=== PATIENT | male | born 1975 | race Caucasian/White ===

== ENCOUNTER 2016-06-13 11:38 | Emergency (ER) | payer OTHER ==
[2016-06-13] MEDS ORDERED: KETOROLAC 60 MG/2 ML VIAL IM STA (12:53)
[2016-06-13] MEDS ORDERED: ORPHENADRINE 30 MG/ML 2 ML VIAL IM STA (12:53)
--- NOTE | 2016-06-13 13:00 | ED ---
General Adult HPI - General Chief complaint: Neck Pain/Injury Stated complaint: Neck pain Time Seen by Provider: 06/13/16 12:40 Source: patient, RN notes reviewed Mode of arrival: ambulatory Limitations: no limitations - History of Present Illness Initial comments: 41-year-old male presents to the emergency department with a chief complaint of right-sided neck and shoulder pain. Patient states his pain originally started about one week ago after he was pain the ceiling in his house. Patient states he then tried to grab the driveway in this pain flared him off. Patient states that he saw his doctor who scheduled him with an appointment to see Dr. Luna but the appointment set for similar days and the patient states he continues to have this pain and discomfort. Patient states it's more around the right shoulder radiates into the upper back shoulder area as well. Patient states that he did not have any fall or injury to the shoulder is just seems to be overuse and overdoing it. Patient denies any nausea or vomiting associated with this. Patient states that he was concerned due to the continued pain and the fact that he just cannot seem to get comfortable so he thought he should be evaluated. Patient states that there is no other symptoms with this. Patient denies any numbness or tingling on the right arm. Patient denies any recent fever, chills, shortness of breath, chest pain, back pain, abdominal pain, nausea vomiting, numbness or tingling, dysuria or hematuria, constipation or diarrhea, headaches or visual changes, or any other current symptoms. - Related Data Home Medications Medication Instructions Recorded Confirmed ALPRAZolam [Xanax] 1 mg PO TID 11/25/15 12/24/15 HYDROcodone/APAP 10-325MG [[place] 1 tab PO Q4HR PRN 11/25/15 12/24/15 10-325] Venlafaxine HCl ER [Effexor XR] 75 mg PO DAILY 12/24/15 12/24/15 Divalproex ER [Depakote ER] 1,000 mg PO DAILY 06/13/16 06/13/16 Divalproex Sodium [Depakote ER] 250 mg PO DAILY 06/13/16 06/13/16 Doxycycline Monohydrate [Monodox] 100 mg PO BID 06/13/16 06/13/16 Flecainide Acetate 50 mg PO Q12HR 06/13/16 06/13/16 Previous Rx's Medication Instructions Recorded Orphenadrine [Norflex] 100 mg PO Q12H #10 tablet.er 06/13/16 Allergies Allergy/AdvReac Type Severity Reaction Status Date / Time sulfamethoxazole Allergy Unknown Rash/Hives Verified 06/13/16 13:38 [From Bactrim] trimethoprim [From Bactrim] Allergy Unknown Rash/Hives Verified 06/13/16 13:38 daptomycin Allergy Itching Verified 06/13/16 13:38 hydromorphone HCl Allergy Itching Verified 06/13/16 13:38 [From Dilaudid] vancomycin Allergy Itching Verified 06/13/16 13:38 ibuprofen [From Motrin] AdvReac Nausea & Verified 06/13/16 13:38 Vomiting Review of Systems ROS Statement: Those systems with pertinent positive or pertinent negative responses have been documented in the HPI. ROS Other: All systems not noted in ROS Statement are negative. Past Medical History Past Medical History: Atrial Fibrillation, Skin Disorder Additional Past Medical History / Comment(s): PACEMAKER @ AGE 24, AND REPLACED APPROX 2010, BACK PAIN, History of Any Multi-Drug Resistant Organisms: MRSA Date of last positivie culture/infection: 05/25/15 MDRO Source:: Left Wrist Past Surgical History: Heart Catheterization, Pacemaker Additional Past Surgical History / Comment(s): ASD REPAIR TO REPAIR HOLE BETWEEN 2 UPPER CHAMBERS AT AGE 5., PACEMAKER INSERTED SINCE AGE 24, D/T BRADYCARDIA, AND REPLACED X1. Past Anesthesia/Blood Transfusion Reactions: No Reported Reaction Type of Cardiac Device: Permanent Pacemaker Device Placement Date:: 2010 BIOTRONIC Past Psychological History: Anxiety, Depression Additional Psychological History / Comment(s): Single lives independently. Does have some input from his parents. He had 2 adult children one in a car accident in February 2015 he was taxing and driving and lost control. His other son is in good health. one pet Dog at home which is a Huskie had for 3 months. Stopped smoking tobacco 10 years ago. No history of her second alcohol or recreational drug use. 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 No experience. No international travel Smoking Status: Former smoker Past Alcohol Use History: None Reported Additional Past Alcohol Use History / Comment(s): started smoking at age 14 1pp , quit 2000. Smoked for 11 years. Past Drug Use History: None Reported Additional Drug Use History / Comment(s): past use of marijuana as teenager, none, now - Past Family History Father Family Medical History: Diabetes Mellitus Mother Family Medical History: Cancer Additional Family Medical History / Comment(s): FEMALE CANCER, CABG General Exam Limitations: no limitations General appearance: alert, in no apparent distress Head exam: Present: atraumatic, normocephalic, normal inspection Eye exam: Present: normal appearance, PERRL, EOMI. Absent: scleral icterus, conjunctival injection, periorbital swelling ENT exam: Present: normal exam, mucous membranes moist Neck exam: Present: tenderness (On the right lateral aspect). Absent: meningismus, full ROM (Patient has limited range of motion with lateral bending to the right and with full flexion of the neck due to pain along the right lateral aspect), lymphadenopathy, thyromegaly Respiratory exam: Present: normal lung sounds bilaterally. Absent: respiratory distress, wheezes, rales, rhonchi, stridor Cardiovascular Exam: Present: regular rate, normal rhythm, normal heart sounds. Absent: systolic murmur, diastolic murmur, rubs, gallop, clicks Extremities exam: Present: normal inspection, full ROM, tenderness (Along the right upper trapezius muscle into the right shoulder), normal capillary refill. Absent: joint swelling, calf tenderness Back exam: Present: normal inspection Neurological exam: Present: alert, oriented X3, CN II-XII intact. Absent: motor sensory deficit Psychiatric exam: Present: normal affect, normal mood Skin exam: Present: warm, dry, intact, normal color. Absent: rash Course Vital Signs 06/13/16 06/13/16 11:45 13:34 Temperature 97 F L 97.7 F Pulse Rate 63 87 Respiratory 16 20 Rate Blood Pressure 127/76 119/66 O2 Sat by Pulse 99 100 Oximetry Medical Decision Making - Medical Decision Making 41-year-old male presents emergency. Patient will follow-up with Dr. Garcia for a right shoulder possible rotator cuff injury per the patient's history from the family care doctor. Patient is a 2-year-old with a ventricular. They lifted special testing of the right shoulder. At this time x-rays reviewed the chest and acute process. Discussed patient also gets cervical strain right shoulder strain. We discussed continuing his follow-up appointment. We discussed we will start her muscle relaxers. Discussed return parameters. We discussed all the patient's questions. He stated he understood the plan. At this time he will be discharged home. - Radiology Data Radiology results: report reviewed, image reviewed Disposition Clinical Impression: Right shoulder strain, Strain of cervical portion of right trapezius muscle Disposition: HOME SELF-CARE Condition: Stable Instructions: Rotator Cuff Injury (ED), Cervical Strain (ED) Additional Instructions: Please use medication as discussed. Please follow up with family doctor if symptoms have not improved over the next two days. Please return to the emergency room if your symptoms increase or worsen or for any other concerns. Prescriptions: Orphenadrine [Norflex] 100 mg PO Q12H #10 tablet.er Referrals: Byron Chua MD [Primary Care Provider] - 1-2 days Time of Disposition: 13:51
--- NOTE | 2016-06-13 13:48 | XR ---
EXAMINATION TYPE: XR cervical spine comp DATE OF EXAM: 06/13/2016 1:36 PM COMPARISON: NONE HISTORY: 41-year-old male with right shoulder and neck pain for 2 weeks TECHNIQUE: 7 views FINDINGS: Normal odontoid view. Straightening of the normal cervical lordosis is noted. Alignment is maintained . No predental space widening or prevertebral soft tissue swelling. Mild endplate spondylosis and disc interspace narrowing at mid to lower cervical spine with corresponding facet and uncovertebral joint arthropathy. On the right, the changes result in at least mild narrowing of the C6-C7 and C7-T1 neuroforamina. No significant bony neural foraminal narrowing on the left. IMPRESSION: Mild spondylotic change mid to lower cervical spine. This appears to cause at least mild narrowing of the right C6-C7 and C7-T1 neuroforamina. Straightening of the normal cervical lordosis could be positional or due to muscle spasm.
--- NOTE | 2016-06-13 13:49 | XR ---
EXAMINATION TYPE: XR shoulder complete RT DATE OF EXAM: 06/13/2016 1:36 PM COMPARISON: NONE HISTORY: 41-year-old male with pain TECHNIQUE: 3 views FINDINGS: There appears to be slight offset at the AC joint but no abnormal widening. Subacromial space is pres erved. No tendinous or bursal calcifications. Mild inferior spurring at the glenoid. No acute fractur e or dislocation. IMPRESSION: Slight offset at the AC joint could reflect an AC joint sprain if there is appropriate history of tra dany and pinpoint tenderness in this location. Otherwise, findings may be projectional. Mild degenerat varghese spurring at the glenohumeral joint.
[2016-06-13 14:06] VITALS: BP 126/76; PULSE 68; RESP 18; TEMP 98.1
== END 2016-06-13 14:06 | disposition home or self-care (01) ==
LOC: EC 11:38
DX: S16.1XXA Strain of muscle, fascia and tendon at neck level, initial encounter (principal); S46.011A Strain of muscle(s) and tendon(s) of the rotator cuff of right shoulder, initial encounter; I48.91 Unspecified atrial fibrillation; F32.9 Major depressive disorder, single episode, unspecified; F41.9 Anxiety disorder, unspecified; Z87.891 Personal history of nicotine dependence; Z79.899 Other long term (current) drug therapy; Z88.1 Allergy status to other antibiotic agents; Z88.5 Allergy status to narcotic agent; Z88.6 Allergy status to analgesic agent; Z88.8 Allergy status to other drugs, medicaments and biological substances; X58.XXXA Exposure to other specified factors, initial encounter
CPT/HCPCS: 72050; 73030; 99283; 96372 ×2; J2360; J1885

== ENCOUNTER → 2016-06-21 | Outpatient (CLI) | payer OTHER ==
--- NOTE | 2016-06-21 21:14 | CT ---
"EXAMINATION TYPE: CT cervical spine wo con DATE OF EXAM: 06/21/2016 6:52 PM COMPARISON: 02/13/2014 HISTORY: Neck and right arm pain for [address] DLP: 499.9 mGycm Automated exposure control for dose reduction was used. TECHNIQUE: CT scan of the cervical spine is obtained without contrast, axial images are obtained, sa gittal and coronal reformatted images are also reviewed. FINDINGS: Evaluation the spinal cord is limited due to noncontrast technique and artifact. At C2-3 there is no evidence of canal stenosis. Neural foramina are patent. Very minimal uncovertebra l joint hypertrophy. At C3-C4 there is very mild uncovertebral joint hypertrophy. Neural foramina are patent. No Canal enedina nosis. Central disc bulging suggested. At C4-C5 there is posterior spondylosis and disc osteophyte complex. Uncovertebral joint hypertrophy noted on the right. Mild right-sided foraminal encroachment. Borderline canal stenosis. This would be more adequately assessed with MRI. At C5-C6 there is posterior cervical spondylosis and moderate uncovertebral joint hypertrophy bilater ally greater on the right. Moderate bilateral foraminal encroachment is seen. Central disc protrusion capped by spur noted with findings suggestive of canal stenosis. At C6-C7 findings are highly suspicious for disc herniation paracentrally to the right with severe ri ght-sided foraminal encroachment. Uncovertebral joint hypertrophy contributes greater on the right. T here likely is a degree of Canal stenosis. Compression of the spinal cord cannot be excluded by CAT s can. At C7-T1 no obvious disc herniation or canal stenosis. Neural foramina appear patent. No abnormality within the paraspinal soft tissues. Leads are seen within the vasculature on the left lung apex. Mild emphysematous changes noted. IMPRESSION: 1. Findings are highly suspicious for a large right paracentral disc herniation with severe right-karen ed foraminal encroachment at C6-C7. Degree of cord compression cannot be excluded by CAT scan and MRI is recommended. 2. Disc protrusion and uncovertebral joint hypertrophy with cervical spondylosis C5-C6 and moderate b ilateral foraminal encroachment and findings suggestive of moderate canal stenosis. 3. Borderline canal stenosis C4-C5. Posterior spondylosis results in mild impression of the thecal sa c. A Yellow message has been communicated to Reese Jimenez MD via the [employer] | Critical Result s [employer] on 06/21/2016 9:10 PM, Message ID [id number]."
== END | disposition home or self-care (01) ==
LOC: RADCTMAIN 18:27
PROVIDERS: ATTEND Orthopaedic Surgery Sports Medicine
DX: M48.02 Spinal stenosis, cervical region (principal); M50.222 Other cervical disc displacement at C5-C6 level; M47.812 Spondylosis without myelopathy or radiculopathy, cervical region; M46.82 Other specified inflammatory spondylopathies, cervical region
CPT/HCPCS: 72125

== ENCOUNTER → 2016-08-10 | Outpatient (CLI) | payer OTHER ==
[2016-08-10 10:23] LABS: Appearance,Urine Clear (Clear); Bilirubin,Urine Negative (Negative); Glucose,Urine (UA) Negative (Negative); Ketones,Urine Negative (Negative); Leukocyte Esterase,Urine Negative (Negative); Nitrite,Urine Negative (Negative); PH, Urine 6.5 (5.0-8.0); Protein,Urine Negative (Negative); Specific Gravity,Urine 1.016 (1.001-1.035); UA Billing (MACRO vs. MICRO) CHEM; Urobilinogen,Urine <2.0 mg/dL (<2.0)
[2016-08-10 10:41] LABS: Basophils % (A) 0 %; CH 31.4; CHCM 34.8; Eosinophils # (A) 0.1 k/uL (0-0.7); Eosinophils % (A) 2 %; HCT 40.6 % (39.0-53.0); HDW 2.68; HGB 13.6 gm/dL (13.0-17.5); Luc # (Auto) 0.09; Luc % (Auto) 2; Lymphocytes # (A) 1.3 k/uL (1.0-4.8); Lymphocytes % (A) 28 %; MCH 30.3 pg (25.0-35.0); MCHC 33.5 g/dL (31.0-37.0); MCV 90.6 fL (80.0-100.0); Monocytes # (A) 0.3 k/uL (0-1.0); Monocytes % (A) 7 %; Neutrophils # (A) 2.8 k/uL (1.3-7.7); Neutrophils % (A) 61 %; RBC 4.48 m/uL (4.30-5.90); RDW 12.6 % (11.5-15.5); WBC 4.6 k/uL (3.8-10.6); WBC (Perox) 4.52
[2016-08-10 10:47] LABS: INR 1.1 (<1.1); Partial Thromboplastin Time 23.6 sec (22.0-30.0); Prothrombin Time 10.9 sec (9.0-12.0)
[2016-08-10 10:50] LABS: Anion Gap 10 mmol/L; Blood Urea Nitrogen 13 mg/dL (9-20); Calcium 10.2 mg/dL (8.4-10.2); Carbon Dioxide 26 mmol/L (22-30); Chloride 108 mmol/L (98-107); Glucose 93 mg/dL (74-99); Non-African American GFR(MDRD) >60 (>60 ml/min/1.73 sqM); Potassium 4.9 mmol/L (3.5-5.1); Sodium 144 mmol/L (137-145)
== END | disposition home or self-care (01) ==
LOC: LABPAT 09:44
PROVIDERS: ATTEND Orthopaedic Surgery Orthopaedic Surgery of the Spine
DX: Z01.812 Encounter for preprocedural laboratory examination (principal); M50.222 Other cervical disc displacement at C5-C6 level
CPT/HCPCS: 80048; 81003; 85025; 85610; 85730

== ENCOUNTER 2016-08-16 09:33 | Inpatient (IN) | payer OTHER ==
[2016-08-14 11:49] VITALS: BMI 22.4
[~2016-08-16 09:33] MED LIST: BACITRACIN 50,000 UNIT, POLYMYXIN B 500,000 UNIT in SODIUM CHLORIDE 0.9% IRRIGATIO 1,00... IRRIGATION ONE; DEXAMETHASONE SOD PHOSPHATE 10 MG/ML 1 ML VIAL IV ONE; MIDAZOLAM 2 MG/2 ML VIAL IV PRN; ONDANSETRON 4 MG/2 ML VIAL IVP ONE; SCOPOLAMINE 1.5MG/72HR PATCH TRANSDERM ONE; ceFAZolin 2 GM in SODIUM CHLORIDE 0.9% 100 ML IVPB ONE; fentaNYL (PF) 50 MCG/ML 2 ML AMP IV PRN
[2016-08-16] MEDS: LACTATED RINGERS 1,000 ML IV SCH (10:45)
[2016-08-16] MEDS ORDERED: LIDOCAINE 1% 20 ML VIAL (10MG/ML) FOR IV START INTRADERMA ONE (10:45)
[2016-08-16] MEDS ORDERED: VANCOMYCIN 1,000 MG in SODIUM CHLORIDE 0.9% 250 ML IVPB STA (11:49)
[2016-08-16] MEDS ORDERED: diphenhydrAMINE 50 MG/ML 1 ML VIAL IVP ONE (12:08)
[2016-08-16] MEDS ORDERED: DEXAMETHASONE SOD PHOS (MDV) 100 MG/10 ML VIAL ONE (12:23)
[2016-08-16] MEDS ORDERED: PROPOFOL 10 MG/ML 20 ML VIAL IV ONE (12:23)
[2016-08-16] MEDS ORDERED: MIDAZOLAM 2 MG/2 ML VIAL ONE (12:23)
[2016-08-16] MEDS ORDERED: fentaNYL (PF) 50 MCG/ML 2 ML AMP ONE (12:23)
[2016-08-16] MEDS ORDERED: LIDOCAINE 1% INJ 10MG/ML (20 ML MDV) ONE (12:23)
[2016-08-16] MEDS ORDERED: SUCCINYLCHOLINE CHLORIDE 100 MG/5 ML SYR IV ONE (12:23)
[2016-08-16] MEDS ORDERED: diphenhydrAMINE 50 MG/ML 1 ML VIAL ONE (12:23)
[2016-08-16] MEDS ORDERED: SODIUM CHLORIDE 0.9% 100 ML with CLINDAMYCIN 900 MG IV ONE ×2 (12:39)
[2016-08-16] MEDS ORDERED: THROMBIN (BOVINE) 5,000 UNIT VIAL TOPICAL ONE (12:56)
[2016-08-16] MEDS ORDERED: GELATIN SPONGE,ABSORB (LARGE) 1 EACH SPONGE TOPICAL ONE (12:56)
[2016-08-16] MEDS ORDERED: LIDOCAINE 0.5%-EPI 1:200,000 50 ML VIAL SQ ONE (12:56)
--- NOTE | 2016-08-16 13:30 | XR ---
EXAMINATION TYPE: XR cervical spine 1V DATE OF EXAM: 08/16/2016 1:23 PM COMPARISON: NONE HISTORY: Intraoperative localization TECHNIQUE: Crosstable lateral cervical spine FINDINGS: Localization device anterior C6-7 interspace.
[2016-08-16] MEDS ORDERED: LACTATED RINGERS 1,000 ML IV ONE (14:01)
--- NOTE | 2016-08-16 14:21 | XR ---
EXAMINATION TYPE: XR cervical spine 1V DATE OF EXAM: 08/16/2016 2:08 PM COMPARISON: NONE HISTORY: Hardware placement TECHNIQUE: Crosstable lateral cervical spine FINDINGS: Changes of ACDF at C5-6 and C6-7. Intervertebral spacers are in place. Alignment is anatomi c. IMPRESSION: Postsurgical changes as noted.
[2016-08-16] MEDS ORDERED: BENZOCAINE/MENTHOL LOZENG 1 EACH LOZENGE MUCOUS MEM PRN (14:25)
[2016-08-16] MEDS ORDERED: ONDANSETRON 4 MG/2 ML VIAL IVP PRN (14:25)
[2016-08-16] MEDS ORDERED: MAG HYDROX/AL HYDROX/SIMETH 30 ML CUP PO PRN (14:25)
[2016-08-16] MEDS ORDERED: DIAZEPAM 5 MG TAB PO PRN (14:25)
[2016-08-16] MEDS ORDERED: SENNOSIDES-DOCUSATE SODIUM 1 EACH TAB PO PRN (14:25)
--- NOTE | 2016-08-16 14:34 | P.OP ---
Date of Procedure: 08/16/16 Preoperative Diagnosis: Herniated nucleus pulposis C5 6 C6 7, cervical stenosis C5 6 C6 7, upper extremity radiculopathy with Weakness Postoperative Diagnosis: Same Anesthesia: GETA Pathology: none sent Condition: stable Disposition: PACU Description of Procedure: BRIEF OPERATIVE NOTE Preoperative Diagnosis: Herniated nucleus pulposis C5 6 C6 7, cervical stenosis C5 6 C6 7, right upper extremity radiculopathy with weakness Postoperative Diagnosis: Same Procedure: Anterior cervical decompression with discectomy and fusion C5 6 C6 7 Placement of interbody graft C5 6 C6 7 Application of anterior cervical plate C5 C7 Surgeon: Dr. Horowitz Dietitian Research: Roldan CHATTERJEE who is present throughout the entire the case persistence during positioning, dissection, exposure, visualization, and all crucial elements of the case as well as closure. Anesthesia: General anesthesia Estimated blood loss: Approximately 100 mL Complications: None apparent Components implanted: K2M [place] anterior cervical plate system with screws and vikos interbody allograft bone graft Disposition: To recovery room in good stable condition. OPERATIVE INDICATIONS The patient has had long-standing issues in their neck and upper extremities. He is having severe symptoms which were becoming incapacitating for him. He was having severe right upper extremity and neck pain with radiculopathy which correlated well with his imaging findings. The patient has history of a pacemaker and had computed tomography scan which showed significant osteophytes and discoloration C5 6 C6 7 with stenosis at those levels which correlated well with his symptoms. The patient has been through conservative treatment. He is not having any ongoing benefit despite aggressive conservative treatment. We discussed various treatment options including surgery, and the patient wishes to proceed with surgery We discussed the risk, patient's alternatives and benefits of surgery including but not limited to, risk of bleeding risk of infection, risk of need for further surgery, risk of decreased, loss of motion, muscle function, malunion nonunion, hardware failure, nerve damage, paralysis, heart attack, and . OPERATIVE SUMMARY After discussing all the risks, patient alternatives and benefits at length, the patient elected to proceed with surgical intervention, signed informed consent, and presented for their procedure. The patient was seen and examined in the preoperative holding area and the surgical site was marked. The patient was given antibiotics and brought to the operating room. The patient stated that he normally takes vancomycin before his surgeries and we given prophylactic medications and started him on vancomycin however he did show evidence of ALLERGIC reaction around the IV site in the back myself was stopped immediately. We changed him over to clindamycin for prophylactic antibiotics and his ALLERGIC symptoms were resolving with medications. The patient was positioned on the operating room table in a supine position being careful to pad any bony prominences and pressure points. The patient was sedated and intubated by anesthesia in standard fashion. Once the airway and C- spine were stabilized the patient's arms were padded and tucked at her side, with her shoulders gently taped. The head was placed in a donut pad with the neck in good neutral alignment and position. We were careful to maintain the patient's cervical spine and good neutral alignment and position throughout. The patient was prepped and draped in a normal standard fashion. An appropriate timeout and keystone protocol performed. We were able to proceed with the surgery. The local wound area was infiltrated with local anesthetic. An incision was made transversely approximately 2-1/2 cm over the appropriate levels at C5 6. Dissection was taken down subcutaneously to the level of the platysma which was split in line with its fibers. Dissection was taken with a carotid approach, with the trachea and esophagus medial and the carotid sheath laterally. We dissected down to the anterior surface of the vertebral bodies at C5 6 and 7. Intraoperative x-ray was taken which showed a marker at the appropriate level at C6 7. With the appropriate level positively confirmed, we were able to proceed with discectomy at the appropriate levels. All of the operative levels were exposed appropriately. The patient had all their twitches back, and there was no evidence of recurrent laryngeal issue. The wound was copiously irrigated and suctioned dry as had been done periodically throughout the case. At the appropriate level/levels, first at C5 6 and then at C6 7, I established an annulotomy with an 11 blade scalpel. A discectomy was performed with a combination of pituitary rongeurs, curettes, a high-speed bur, and Kerrison rongeurs. The posterior longitudinal ligament was taken down as were any posterior osteophytes. Note was made of significant posterior osteophytes and protrusion of the disc with herniation causing significant stenosis. I was able to take this down and remove the disc and the posterior osteophytes. This gave good central and bilateral foraminal decompression. There is no evidence of any dural tear or leak. The endplates were prepared with a high-speed bur. With the endplates in good parallel position, I was able to size for the appropriate size interbody graft. The wound was irrigated and suctioned dry the graft was prepared and malleted into position. It had good alignment and position with the anterior surface flush with the anterior surface of the vertebral bodies. This was done similarly the appropriate levels first at C5 6 and then at C6 7. With the grafts intact, I was able to measure and contour and appropriate sized plate. The plate was positioned at the midline over the appropriate levels of C5 6 and 7. Screw holes were established with a hand drill and drill guide. Screws were placed in good alignment and position with excellent bony purchase. They were seated under the locking device. The construct was checked and found to be stable. Intraoperative x-ray was taken which showed good alignment and position of the implants at the appropriate levels. There was no evidence of any dural tear or leak. Good hemostasis was maintained. The wound was copiously irrigated and suctioned dry as had been done periodically throughout the case. The platysma was closed with absorbable suture. The subcutaneous tissue was closed. The subcuticular tissue was closed with absorbable suture. The wound was cleaned and dried and dressed appropriately. A soft cervical collar was placed appropriately. The patient was woken up by anesthesia, extubated, transferred back gently to their hospital bed and brought to the recovery room in good stable condition. The patient will be admitted to the hospital for appropriate postoperative care , medical management and monitoring. We will continue to follow them closely about the postoperative course.
[2016-08-16 16:07] LABS: Appearance,Urine Clear (Clear); Bilirubin,Urine Negative (Negative); Glucose,Urine (UA) Negative (Negative); Ketones,Urine Negative (Negative); Leukocyte Esterase,Urine Large (Negative); Nitrite,Urine Negative (Negative); Particle Count 817; Protein,Urine Negative (Negative); Specific Gravity,Urine 1.012 (1.001-1.035); UA Billing (MACRO vs. MICRO) MICRO; Urobilinogen,Urine <2.0 mg/dL (<2.0); WBC,Urine 41 /hpf (0-5)
[2016-08-16] MEDS: HYDROcodone/APAP 10-325MG 1 EACH TAB PO PRN ×3 (16:11→22:28)
[2016-08-16] MEDS: ALPRAZolam 0.5 MG TAB PO SCH ×2 (16:12→22:29)
--- NOTE | 2016-08-16 16:42 | P.PN ---
Progress Note - Text Epidural floor and with patient has bedside over the past hour and a half. He has settled down to some degree and he is apologetic about his demeanor and outbursts. He was quite uncooperative and was thrashing his head around to prove that he could apparently. He says it still kirk but has subsided to some degree. His urinalysis is come back does not show any evidence of any blood. There is some evidence of lytic Estrace and white blood cells and he may have a urinary tract infection and irritation his urethra. We have ordered lidocaine for his urethra to place as the surgery twice a day to for comfort and I have also ordered antibiotics of Levaquin to be taken daily to try to treat possible UTI. He has settled down some degree and is being cooperative currently. We will try to check labs to make sure his electrolytes are in order. We will continue to watch him overnight to monitor his progress. I discussed these issues with him and with his family his mother and father apparently are at bedside tonight discussed his issues with them. They they tell me that he has a number of anger management issues and sees people for anger management. A tell is that he does have significant behavioral issues and has difficulty coping which makes sense in light of the current issues. We will continue to monitor him closely. We have been discussing these issues with him at length with us and with the staff and he seems to be understanding currently.
[2016-08-16] MEDS: LIDOCAINE URO-JET JELLY 2% 5 ML KIT URETHRAL SCH ×2 (17:06→20:52)
[2016-08-16] MEDS: CLINDAMYCIN 900 MG in DEXTROSE 5% IN WATER 50 ML IVPB SCH ×4 (17:14→23:30)
[2016-08-16 17:19] LABS: Basophils % (A) 0 %; CH 31.3; CHCM 34.2; Eosinophils # (A) 0.1 k/uL (0-0.7); Eosinophils % (A) 1 %; HCT 40.3 % (39.0-53.0); HDW 2.49; HGB 13.3 gm/dL (13.0-17.5); Luc # (Auto) 0.02; Luc % (Auto) 0; Lymphocytes # (A) 0.7 k/uL (1.0-4.8); Lymphocytes % (A) 8 %; MCH 30.3 pg (25.0-35.0); MCHC 32.9 g/dL (31.0-37.0); MCV 92.1 fL (80.0-100.0); Mean Platelet Volume 6.8; Monocytes # (A) 0.1 k/uL (0-1.0); Monocytes % (A) 1 %; Neutrophils # (A) 7.6 k/uL (1.3-7.7); Neutrophils % (A) 90 %; RBC 4.38 m/uL (4.30-5.90); RDW 12.7 % (11.5-15.5); WBC 8.5 k/uL (3.8-10.6); WBC (Perox) 8.75
[2016-08-16 17:27] LABS: Anion Gap 8 mmol/L; Blood Urea Nitrogen 16 mg/dL (9-20); Calcium 9.3 mg/dL (8.4-10.2); Carbon Dioxide 24 mmol/L (22-30); Chloride 107 mmol/L (98-107); Glucose 127 mg/dL (74-99); Non-African American GFR(MDRD) >60 (>60 ml/min/1.73 sqM); Potassium 4.2 mmol/L (3.5-5.1); Sodium 139 mmol/L (137-145)
[2016-08-16] MEDS ORDERED: LEVOFLOXACIN 500 MG TAB PO SCH (18:00)
[2016-08-16] MEDS: SODIUM CHLORIDE 0.9% 1,000 ML IV SCH (20:12)
[2016-08-16] MEDS ORDERED: diphenhydrAMINE 50 MG/ML 1 ML VIAL IVP PRN (20:27)
[2016-08-16] MEDS: MORPHINE SULFATE 4 MG/ML SYRINGE IVP PRN (20:48)
[2016-08-16] MEDS: FLECAINIDE 50 MG TAB PO SCH (20:54)
[2016-08-16] MEDS: DIVALPROEX 250 MG TABLET.DR PO SCH (20:55)
[2016-08-16] MEDS: DOXYCYCLINE 50 MG CAP PO SCH (20:56)
[2016-08-17] MEDS: MORPHINE SULFATE 4 MG/ML SYRINGE IVP PRN ×3 (00:43→08:09)
[2016-08-17] MEDS: HYDROcodone/APAP 10-325MG 1 EACH TAB PO PRN ×2 (01:50→06:24)
[2016-08-17 02:03] VITALS: RESP 16
[2016-08-17] MEDS: LACTATED RINGERS 1,000 ML IV SCH (04:45)
[2016-08-17] MEDS: SODIUM CHLORIDE 0.9% 1,000 ML IV SCH (06:24)
[2016-08-17 07:40] VITALS: BP 128/71; PULSE 75; TEMP 97
--- NOTE | 2016-08-17 07:46 | P.DS ---
Providers Date of admission: 08/16/16 09:33 Attending physician: Daly Horowitz Primary care physician: Stated None Hospital Course: The patient presented on the day of admission as per his operative note. He underwent anterior cervical discectomy and fusion for his severe stenosis with disc herniation and upper extremity radiculopathy at C5 6 C6 7. He had a number of issues postoperatively with pain apparently from his catheter and also some neck pain. It is difficult to determine how well he is able to handle pain in general as he has significant anxiety and troubles with pain management chronically. His urination was appropriate he was able to void freely and he seems to be adequately moving his neck. He was thrashing his neck to some degree yesterday postoperatively despite our instructions not to. He was being quite defiant yesterday when he was upset. This morning he is significant more calm. he is cooperative. He says his neck is sore. He was able to eat some food yesterday he is voiding freely. He feels like his arms are doing somewhat better. Physical Exam The incision site is clean dry and intact. There is no erythema no drainage. There is no purulence no evidence of infection. His neck is soft and supple. There is no cigarette swelling. There is no significant drainage on the bandage. Abdomen soft and nontender. Chest has good excursion with deep inspiration and expiration. The patient has active and passive range of motion intact at the upper and lower extremities. There is no acute change in neurologic status. Able to move his upper extremities well. He has good strength in his hands bilaterally. His no clonus and no upper motor neuron signs. Hospital Course Postoperative day #1 status post anterior cervical discectomy and fusion for C5 6 C6 7 for his disc herniation and severe stenosis with right upper extremity radiculopathy and weakness. The patient has been making progress postoperatively despite his initial difficulties when he arrived to the floor. His pain at his urethra is improving but he still has some burning. I do not think that his Jackson catheter caused any sort of infection but we are treating him for urinary tract issues with prophylactic antibiotics. He should continue his Levaquin orally for the next 5 days. In terms of his neck, he has some soreness at the base of his neck which is common place after these types of procedures and I think this will improve as he continues to heal They have completed the prophylactic antibiotics without any signs or symptoms of infection. The patient has been able to advance their diet, and is tolerating diet adequately. The pain was initially controlled with IV medications and is now controlled appropriately with oral medications. The patient has been able to increase their mobilization. The patient has progressed appropriately. I think they are in adequate stable condition for discharge today. They will be sent home with appropriate prescriptions. I answered their questions to the best of my ability in a language that they can understand and they are agreeable with the plan. the patient has some anger management issues and anxiety issues which are difficult to predict. He seems like he will be able to manage his symptoms and continue to follow instructions appropriately postoperatively They will follow up as directed In approximately 2 weeks or sooner if he is having any problems. Patient Condition at Discharge: Fair Plan - Discharge Summary New Discharge Prescriptions: Hydrocodone/Acetaminophen [[place] 10-325] 1 tab PO Q4H PRN #90 tab PRN Reason: Pain Levofloxacin [Levaquin] 500 mg PO DAILY #5 tab Discharge Medication List ALPRAZolam [Xanax] 1 mg PO QID 11/25/15 [History] HYDROcodone/APAP 10-325MG [[place] 10-325] 1 tab PO Q4HR PRN 11/25/15 [History] Divalproex Sodium [Depakote ER] 250 mg PO BID 06/13/16 [History] Doxycycline Monohydrate [Monodox] 100 mg PO BID 06/13/16 [History] Flecainide Acetate 50 mg PO Q12HR 06/13/16 [History] Divalproex ER [Depakote ER] 500 mg PO BID 08/16/16 [History] Levofloxacin [Levaquin] 500 mg PO DAILY #5 tab 08/16/16 [Rx] Hydrocodone/Acetaminophen [[place] 10-325] 1 tab PO Q4H PRN #90 tab 08/17/16 [Rx] Follow up Appointment(s)/Referral(s): Daly Horowitz DO [Doctor of Osteopathic Medicine] - 2 Weeks (With Roldan Pope at Dr. Horowitz's office) Activity/Diet/Wound Care/Special Instructions: Avoid heavy or rigorous activity. May ambulate to tolerance. No overhead work. No lifting greater than 15 pounds. No smoking. No repetitive bending twisting or lifting. Keep dressing intact. May shower with waterproof dressing intact. On Sunday May remove dressing and then may shower with area uncovered, but leave Steri- Strips intact and allow them to fray off on their own. Discharge Disposition: HOME SELF-CARE
[2016-08-17] MEDS: FLECAINIDE 50 MG TAB PO SCH (08:08)
[2016-08-17] MEDS: DIVALPROEX 250 MG TABLET.DR PO SCH (08:08)
[2016-08-17] MEDS: ALPRAZolam 0.5 MG TAB PO SCH (08:08)
[2016-08-17] MEDS: DOXYCYCLINE 50 MG CAP PO SCH (08:08)
[2016-08-17] MEDS: LIDOCAINE URO-JET JELLY 2% 5 ML KIT URETHRAL SCH (08:09)
[2016-08-17] MEDS ORDERED: DIVALPROEX 500 MG TABLET.DR PO SCH (09:00)
[2016-08-17] MEDS ORDERED: DIVALPROEX ER 250 MG TAB.ER.24H PO SCH (09:00)
== END 2016-08-17 10:25 | disposition home or self-care (01) | DRG 473 ==
LOC: 2ORMAIN 09:33 → 3SUR 14:20
PROVIDERS: ADMIT Orthopaedic Surgery Orthopaedic Surgery of the Spine; ATTEND Orthopaedic Surgery Orthopaedic Surgery of the Spine
PROC: 0RB30ZZ Excision of Cervical Vertebral Disc, Open Approach (ICD-10-PCS; 2016-08-16)
PROC: 0RG20K0 Fusion of 2 or more Cervical Vertebral Joints with Nonautologous Tissue Substitute, Anterior Approach, Anterior Column, Open Approach (ICD-10-PCS; principal; 2016-08-16 11:25)
DX: M50.122 Cervical disc disorder at C5-C6 level with radiculopathy (principal); I49.5 Sick sinus syndrome; M48.02 Spinal stenosis, cervical region; M25.78 Osteophyte, vertebrae; M50.223 Other cervical disc displacement at C6-C7 level; M50.222 Other cervical disc displacement at C5-C6 level; R53.1 Weakness; I08.3 Combined rheumatic disorders of mitral, aortic and tricuspid valves; F41.9 Anxiety disorder, unspecified; F91.9 Conduct disorder, unspecified; F31.9 Bipolar disorder, unspecified; G89.18 Other acute postprocedural pain; R07.89 Other chest pain; M54.9 Dorsalgia, unspecified; M25.511 Pain in right shoulder; G89.4 Chronic pain syndrome; R82.99 Other abnormal findings in urine; Z79.01 Long term (current) use of anticoagulants; Z79.891 Long term (current) use of opiate analgesic; Z88.6 Allergy status to analgesic agent; Z88.1 Allergy status to other antibiotic agents; Z88.5 Allergy status to narcotic agent; Z88.2 Allergy status to sulfonamides; Z95.0 Presence of cardiac pacemaker; Z79.899 Other long term (current) drug therapy; Z87.09 Personal history of other diseases of the respiratory system; Z83.3 Family history of diabetes mellitus; Z82.49 Family history of ischemic heart disease and other diseases of the circulatory system; Z81.8 Family history of other mental and behavioral disorders; Z80.3 Family history of malignant neoplasm of breast; Z80.0 Family history of malignant neoplasm of digestive organs; Z87.891 Personal history of nicotine dependence; Z87.74 Personal history of (corrected) congenital malformations of heart and circulatory system; Z86.14 Personal history of Methicillin resistant Staphylococcus aureus infection; Z87.2 Personal history of diseases of the skin and subcutaneous tissue; Z86.79 Personal history of other diseases of the circulatory system
CPT/HCPCS: 72020; 80048; 81001; 85025; 86850; 86900; 86901

== ENCOUNTER 2016-11-23 15:43 | Observation (INO) | payer OTHER ==
[2016-11-23] MEDS ORDERED: HYDROmorphone 1 MG/ML 1 ML SYRINGE IVP STA ×2 (16:58→20:09)
[2016-11-23] MEDS ORDERED: SODIUM CHLORIDE 0.9% 1,000 ML IV ONE (16:58)
[2016-11-23 17:27] LABS: ALT 37 U/L (21-72); AST 22 U/L (17-59); Alkaline Phosphatase 54 U/L (38-126); Anion Gap 12 mmol/L; Blood Urea Nitrogen 11 mg/dL (9-20); Calcium 9.7 mg/dL (8.4-10.2); Carbon Dioxide 22 mmol/L (22-30); Chloride 107 mmol/L (98-107); Glucose 134 mg/dL (74-99); Non-African American GFR(MDRD) >60 (>60 ml/min/1.73 sqM); Potassium 4.1 mmol/L (3.5-5.1); Sodium 141 mmol/L (137-145); Total Bilirubin 0.6 mg/dL (0.2-1.3); Total Protein 6.7 g/dL (6.3-8.2)
[2016-11-23 17:40] LABS: Basophils % (A) 0 %; CH 30.1; CHCM 34.5; Eosinophils # (A) 0.1 k/uL (0-0.7); Eosinophils % (A) 2 %; HCT 43.5 % (39.0-53.0); HDW 2.56; Luc # (Auto) 0.06; Luc % (Auto) 1; Lymphocytes # (A) 1.3 k/uL (1.0-4.8); Lymphocytes % (A) 21 %; MCH 30.3 pg (25.0-35.0); MCHC 34.6 g/dL (31.0-37.0); MCV 87.6 fL (80.0-100.0); Mean Platelet Volume 7.3; Monocytes # (A) 0.3 k/uL (0-1.0); Monocytes % (A) 5 %; Neutrophils # (A) 4.4 k/uL (1.3-7.7); Neutrophils % (A) 70 %; RBC 4.96 m/uL (4.30-5.90); RDW 12.8 % (11.5-15.5); WBC 6.2 k/uL (3.8-10.6); WBC (Perox) 6.45
--- NOTE | 2016-11-23 18:31 | ED ---
Abdominal Pain HPI - General Chief Complaint: Abdominal Pain Stated Complaint: abdominal pain/chest pain-sent by Source: patient Mode of arrival: ambulatory Limitations: no limitations - History of Present Illness Initial Comments: 41 yo male With past medical history of atrial fibrillation, pacemaker, cardiac ablation, heart catheterization, and ASD repair presented for evaluation of abdominal pain. He states is located in the epigastric and right upper quadrant. Symptoms have been ongoing for the last 4 days and he describes it as pressure without any radiation and he rates it an 8 out of 10. There is associated nausea and vomiting and headache. Was seen by his PCP, given zofran, and sent to ED. No history of previously similar symptoms. - Related Data Home Medications Medication Instructions Recorded Confirmed ALPRAZolam [Xanax] 1 mg PO QID 11/25/15 11/23/16 HYDROcodone/APAP 10-325MG [[place] 1 tab PO Q4HR PRN 11/25/15 11/23/16 10-325] Divalproex Sodium [Depakote ER] 750 mg PO BID 06/13/16 11/23/16 Doxycycline Monohydrate [Monodox] 100 mg PO BID 06/13/16 11/23/16 Flecainide Acetate 50 mg PO Q12HR 06/13/16 11/23/16 Albuterol Inhaler [Ventolin Hfa 1 - 2 puff INHALATION RT-Q6H PRN 11/23/16 Inhaler] Ciprofloxacin HCl [Cipro] 500 mg PO Q12HR 11/23/16 11/23/16 Allergies Allergy/AdvReac Type Severity Reaction Status Date / Time sulfamethoxazole Allergy Unknown Rash/Hives/ Verified 11/23/16 16:34 [From Bactrim] Itching trimethoprim [From Bactrim] Allergy Unknown Rash/Hives/ Verified 11/23/16 16:34 Itching daptomycin Allergy Rash/Hives/ Verified 11/23/16 16:34 Itching hydromorphone HCl Allergy Rash/Hives/ Verified 11/23/16 16:34 [From Dilaudid] Itching vancomycin Allergy Rash/Hives/ Verified 11/23/16 16:34 Itching ibuprofen [From Motrin] AdvReac Nausea & Verified 11/23/16 16:34 Vomiting Review of Systems ROS Statement: Those systems with pertinent positive or pertinent negative responses have been documented in the HPI. ROS Other: All systems not noted in ROS Statement are negative. Constitutional: Denies: fever, chills Eyes: Denies: eye pain, eye discharge, vision change ENT: Denies: ear pain, throat pain Respiratory: Denies: cough, dyspnea, wheezes, hemoptysis Cardiovascular: Denies: chest pain, palpitations, dyspnea on exertion Endocrine: Denies: fatigue, polydipsia, polyuria Gastrointestinal: Reports: abdominal pain, nausea, vomiting. Denies: diarrhea, constipation, hematemesis, melena, hematochezia Genitourinary: Denies: urgency, dysuria Musculoskeletal: Denies: back pain, arthralgia Skin: Denies: rash, lesions Neurological: Denies: headache, weakness Psychiatric: Denies: anxiety, depression Hematological/Lymphatic: Denies: easy bleeding, easy bruising Past Medical History Past Medical History: Atrial Fibrillation, Skin Disorder Additional Past Medical History / Comment(s): PACEMAKER @ AGE 24, AND REPLACED APPROX 2010, BACK PAIN, History of Any Multi-Drug Resistant Organisms: MRSA Date of last positivie culture/infection: 05/25/15 MDRO Source:: Left Wrist Past Surgical History: Cardiac Ablation, Heart Catheterization, Pacemaker Additional Past Surgical History / Comment(s): ASD REPAIR TO REPAIR HOLE BETWEEN 2 UPPER CHAMBERS AT AGE 5., PACEMAKER INSERTED SINCE AGE 24, D/T BRADYCARDIA, AND REPLACED X1. Past Anesthesia/Blood Transfusion Reactions: No Reported Reaction Additional Past Anesthesia/Blood Transfusion Reaction / Comment(s): problem with having face covered Type of Cardiac Device: Permanent Pacemaker Device Placement Date:: 2010 BIOTRONIC Past Psychological History: Anxiety, Depression Smoking Status: Former smoker Past Alcohol Use History: None Reported Past Drug Use History: None Reported - Past Family History Father Family Medical History: Diabetes Mellitus Mother Family Medical History: Cancer Additional Family Medical History / Comment(s): FEMALE CANCER, CABG General Exam Limitations: no limitations General appearance: alert, in distress (mild) Head exam: Present: atraumatic, normocephalic, normal inspection Eye exam: Present: normal appearance, PERRL, EOMI. Absent: scleral icterus, conjunctival injection, periorbital swelling ENT exam: Present: normal exam, mucous membranes moist Neck exam: Present: normal inspection. Absent: tenderness, meningismus, lymphadenopathy Respiratory exam: Present: normal lung sounds bilaterally. Absent: respiratory distress, wheezes, rales, rhonchi, stridor Cardiovascular Exam: Present: regular rate, normal rhythm, normal heart sounds. Absent: systolic murmur, diastolic murmur, rubs, gallop, clicks GI/Abdominal exam: Present: soft, tenderness (epigastric and RUQ without Jimenez' s sign or McBurney's point tenderness), normal bowel sounds. Absent: distended , guarding, rebound, rigid Rectal exam: Present: deferred Extremities exam: Present: normal inspection, full ROM, normal capillary refill. Absent: tenderness, pedal edema, joint swelling, calf tenderness Back exam: Present: normal inspection Neurological exam: Present: alert, oriented X3, CN II-XII intact Psychiatric exam: Present: normal affect, normal mood Skin exam: Present: warm, dry, intact, normal color. Absent: rash Course Vital Signs 11/23/16 11/23/16 11/23/16 15:52 19:21 20:34 Temperature 97.8 F Pulse Rate 74 71 65 Pulse Rate [ Left Pulse Oximetery] Respiratory 20 19 18 Rate Blood Pressure 132/73 118/68 132/67 Blood Pressure [Left Arm] O2 Sat by Pulse 98 98 95 Oximetry 11/23/16 22:03 Temperature 97.6 F Pulse Rate Pulse Rate [ 71 Left Pulse Oximetery] Respiratory 16 Rate Blood Pressure Blood Pressure 128/85 [Left Arm] O2 Sat by Pulse 97 Oximetry Medical Decision Making - Medical Decision Making 41 yo male with significant pmh presenting for evaluation of epigastric and RUQ abdominal pain for the past four days. Was seen by his PCP and sent to the ED for evaluation of presumed pancreatitis. On PE he is in mild distress and has tenderness to the epigastric and RUQ abdomen which is soft and without peritoneal signs of guarding, rigidity, or rebound. Remainder of exam is benign. Concern for pancreatitis however GB etiology also considered. WIll obtain EKG, labs, and provide IVF and pain control. Labs revealed no significant abnormalities and the CT abdomen and pelvis showed no acute process. Appendix was visualized and was within normal limits. The patient was reevaluated however it continued to have significant amount of pain. Given the significant past medical history has as well as continued pain despite appropriate pain control provided it was determined that he would be admitted for further treatment and evaluation. The admission team was updated on status the patient and accepted admission to observation. Admission order placed and bed request medical. - Lab Data Result diagrams: 11/24/16 08:01 11/24/16 08:01 Lab Results 11/23/16 11/23/16 11/23/16 Range/Units 16:18 16:18 16:18 WBC 6.2 (3.8-10.6) k/uL RBC 4.96 (4.30-5.90) m/uL Hgb 15.0 (13.0-17.5) gm/dL Hct 43.5 (39.0-53.0) % MCV 87.6 (80.0-100.0) fL MCH 30.3 (25.0-35.0) pg MCHC 34.6 (31.0-37.0) g/dL RDW 12.8 (11.5-15.5) % Plt Count 227 (150-450) k/uL Neutrophils % 70 % Lymphocytes % 21 % Monocytes % 5 % Eosinophils % 2 % Basophils % 0 % Neutrophils # 4.4 (1.3-7.7) k/uL Lymphocytes # 1.3 (1.0-4.8) k/uL Monocytes # 0.3 (0-1.0) k/uL Eosinophils # 0.1 (0-0.7) k/uL Basophils # 0.0 (0-0.2) k/uL Sodium 141 (137-145) mmol/L Potassium 4.1 (3.5-5.1) mmol/L Chloride 107 (98-107) mmol/L Carbon Dioxide 22 (22-30) mmol/L Anion Gap 12 mmol/L BUN 11 (9-20) mg/dL Creatinine 0.90 (0.66-1.25) mg/dL Est GFR (MDRD) Af Amer >60 (>60 ml/min/1.73 sqM) Est GFR (MDRD) Non-Af >60 (>60 ml/min/1.73 sqM) Glucose 134 H (74-99) mg/dL Calcium 9.7 (8.4-10.2) mg/dL Total Bilirubin 0.6 (0.2-1.3) mg/dL AST 22 (17-59) U/L ALT 37 (21-72) U/L Alkaline Phosphatase 54 (38-126) U/L Troponin I (0.000-0.034) ng/mL NT-Pro-B Natriuret Pep 43 pg/mL Total Protein 6.7 (6.3-8.2) g/dL Albumin 4.6 (3.5-5.0) g/dL Lipase 55 (23-300) U/L 11/23/16 Range/Units 16:18 WBC (3.8-10.6) k/uL RBC (4.30-5.90) m/uL Hgb (13.0-17.5) gm/dL Hct (39.0-53.0) % MCV (80.0-100.0) fL MCH (25.0-35.0) pg MCHC (31.0-37.0) g/dL RDW (11.5-15.5) % Plt Count (150-450) k/uL Neutrophils % % Lymphocytes % % Monocytes % % Eosinophils % % Basophils % % Neutrophils # (1.3-7.7) k/uL Lymphocytes # (1.0-4.8) k/uL Monocytes # (0-1.0) k/uL Eosinophils # (0-0.7) k/uL Basophils # (0-0.2) k/uL Sodium (137-145) mmol/L Potassium (3.5-5.1) mmol/L Chloride (98-107) mmol/L Carbon Dioxide (22-30) mmol/L Anion Gap mmol/L BUN (9-20) mg/dL Creatinine (0.66-1.25) mg/dL Est GFR (MDRD) Af Amer (>60 ml/min/1.73 sqM) Est GFR (MDRD) Non-Af (>60 ml/min/1.73 sqM) Glucose (74-99) mg/dL Calcium (8.4-10.2) mg/dL Total Bilirubin (0.2-1.3) mg/dL AST (17-59) U/L ALT (21-72) U/L Alkaline Phosphatase (38-126) U/L Troponin I <0.012 (0.000-0.034) ng/mL NT-Pro-B Natriuret Pep pg/mL Total Protein (6.3-8.2) g/dL Albumin (3.5-5.0) g/dL Lipase (23-300) U/L Disposition Clinical Impression: Intractable abdominal pain Disposition: ADMITTED IP TO THIS [facility] Decision to Admit Reason: Admit from EC Decision Date: 11/23/16 Decision Time: 21:18
[2016-11-23] MEDS ORDERED: RX INFO: IV CONTRAST WAS GIVEN 1 EACH MISC MISCELLANE PRN (18:32)
[2016-11-23] MEDS ORDERED: ONDANSETRON 4 MG/2 ML VIAL IVP STA (19:26)
[2016-11-23 20:35] VITALS: RESP 18
[2016-11-23] MEDS ORDERED: NALOXONE 0.4 MG/ML 1 ML VIAL IV PRN (21:12)
[2016-11-23] MEDS ORDERED: ALBUTEROL NEBULIZED 2.5 MG/3 ML INHALATION PRN (21:17)
--- NOTE | 2016-11-23 21:53 | CT ---
EXAMINATION TYPE: CT abdomen pelvis w con DATE OF EXAM: 11/23/2016 COMPARISON: NONE HISTORY: Abdominal pain CT DLP: mGycm Automated exposure control for dose reduction was used. TECHNIQUE: Helical acquisition of images was performed from the lung bases through the pelvis. CONTRAST: Multiple axial sections were obtained from the diaphragm to the floor the pelvis with intravenous con trast. Contrast was Omnipaque 100 mL. FINDINGS: Lung bases are clear. There is no pleural effusion. Liver spleen pancreas gallbladder appear normal. Bile ducts are not dilated. There is no adrenal mass . Kidneys show satisfactory contrast opacification. There is no hydronephrosis. There is no retroperi toneal adenopathy. There is no ascites. Appendix appears normal. I see no intestinal wall thickening. There are no dilated loops. Bladder distends smoothly. There is no sign of a pelvic mass. The bony s tructures appear intact. IMPRESSION: NEGATIVE CT SCAN OF THE ABDOMEN AND PELVIS. NORMAL APPENDIX.
[2016-11-23] MEDS: MORPHINE SULFATE 4 MG/ML SYRINGE IV PRN (22:12)
[2016-11-23 22:25] VITALS: BMI 21.4
[2016-11-23] MEDS: ALPRAZolam 0.5 MG TAB PO SCH (22:46)
[2016-11-23] MEDS: SODIUM CHLORIDE 0.9% 1,000 ML IV SCH (22:50)
[2016-11-24] MEDS: KETOROLAC 30 MG/ML 1 ML VIAL IVP PRN ×3 (01:32→16:49)
[2016-11-24] MEDS: MORPHINE SULFATE 4 MG/ML SYRINGE IV PRN ×4 (02:20→14:24)
[2016-11-24] MEDS: ONDANSETRON 4 MG/2 ML VIAL IVP PRN ×2 (04:13→12:52)
[2016-11-24] MEDS: SODIUM CHLORIDE 0.9% 1,000 ML IV SCH ×2 (05:59→14:24)
[2016-11-24] MEDS: ALPRAZolam 0.5 MG TAB PO SCH ×2 (07:50→12:52)
[2016-11-24 08:37] LABS: Basophils % (A) 1 %; CH 30.5; CHCM 33.5; Eosinophils # (A) 0.2 k/uL (0-0.7); Eosinophils % (A) 4 %; HCT 38.3 % (39.0-53.0); HDW 2.51; HGB 12.7 gm/dL (13.0-17.5); Luc # (Auto) 0.12; Luc % (Auto) 3; Lymphocytes # (A) 1.4 k/uL (1.0-4.8); Lymphocytes % (A) 35 %; MCH 30.4 pg (25.0-35.0); MCHC 33.2 g/dL (31.0-37.0); MCV 91.5 fL (80.0-100.0); Mean Platelet Volume 7.6; Monocytes # (A) 0.3 k/uL (0-1.0); Monocytes % (A) 6 %; Neutrophils # (A) 2.1 k/uL (1.3-7.7); Neutrophils % (A) 52 %; RBC 4.19 m/uL (4.30-5.90); RDW 13.6 % (11.5-15.5); WBC 4.1 k/uL (3.8-10.6); WBC (Perox) 4.08
[2016-11-24 08:49] LABS: ALT 31 U/L (21-72); AST 17 U/L (17-59); Alkaline Phosphatase 49 U/L (38-126); Anion Gap 8 mmol/L; Blood Urea Nitrogen 11 mg/dL (9-20); Carbon Dioxide 25 mmol/L (22-30); Chloride 108 mmol/L (98-107); Glucose 66 mg/dL (74-99); Magnesium 1.9 mg/dL (1.6-2.3); Non-African American GFR(MDRD) >60 (>60 ml/min/1.73 sqM); Phosphorous 3.6 mg/dL (2.5-4.5); Potassium 4.7 mmol/L (3.5-5.1); Sodium 141 mmol/L (137-145); Total Bilirubin 0.6 mg/dL (0.2-1.3); Total Protein 5.6 g/dL (6.3-8.2)
[2016-11-24] MEDS ORDERED: ENOXAPARIN 40 MG/0.4 ML SYRINGE SQ SCH (09:00)
[2016-11-24] MEDS ORDERED: FLECAINIDE 50 MG TAB PO SCH (09:00)
[2016-11-24] MEDS ORDERED: DOXYCYCLINE 50 MG CAP PO SCH (09:00)
[2016-11-24] MEDS: diphenhydrAMINE 2% CREAM 28.4 GM TUBE TOPICAL SCH ×2 (10:14→16:50)
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
[2016-11-24 16:21] VITALS: BP 109/56; PULSE 71; TEMP 97.5
[2016-11-24] MEDS ORDERED: CALCIUM CARBONATE LIQUID 500 MG/5 ML CUP PO SCH (17:30)
[2016-11-24] MEDS ORDERED: FAMOTIDINE 20 MG/2 ML VIAL IV SCH (21:00)
--- NOTE | 2016-12-09 12:14 | DS ---
DATE OF ADMISSION: 11/23/2016 DATE LEFT AGAINST MEDICAL ADVICE: 11/24/2016 FINAL DIAGNOSIS: 1. Acute abdominal pain, possible acute gastritis. 2. Permanent pacemaker. 3. Anxiety, depression, not otherwise specified. 4. History of ASD repair age of 5. HOSPITAL COURSE: This patient presented with abdominal pain. Examination rather benign. No fever. No white count. CT scan of the abdomen was unremarkable. Patient decided to leave AGAINST MEDICAL ADVICE without signing any papers. HECTOR
== END 2016-11-24 17:32 | disposition left against medical advice (07) ==
LOC: EC 15:43 → 5MS5E 21:12
PROVIDERS: ADMIT Hospitalist; ATTEND Hospitalist
DX: R10.11 Right upper quadrant pain (principal); R10.13 Epigastric pain; R11.2 Nausea with vomiting, unspecified; R51 Headache; F41.9 Anxiety disorder, unspecified; F32.9 Major depressive disorder, single episode, unspecified; I48.91 Unspecified atrial fibrillation; L98.9 Disorder of the skin and subcutaneous tissue, unspecified; Z95.0 Presence of cardiac pacemaker; Z79.2 Long term (current) use of antibiotics; Z79.899 Other long term (current) drug therapy; Z88.1 Allergy status to other antibiotic agents; Z88.5 Allergy status to narcotic agent; Z88.2 Allergy status to sulfonamides; Z88.6 Allergy status to analgesic agent; Z87.891 Personal history of nicotine dependence; Z86.14 Personal history of Methicillin resistant Staphylococcus aureus infection; Z87.74 Personal history of (corrected) congenital malformations of heart and circulatory system
CPT/HCPCS: 96361 ×3; 96375 ×4; 96376 ×3; 96374 ×2; 99285 ×2; 96372; 36415; 83880; 80053 ×2; 83690; 83735; 84100; 84484; 85025 ×2; 74177; G0378 ×2; J2270 ×2; J2405 ×2; J1650; J1885; J1170; Q9967

== ENCOUNTER → 2017-05-31 | Outpatient (CLI) | payer OTHER ==
[2017-05-28 14:32] VITALS: BMI 22.4
[2017-05-31 13:39] VITALS: BP 119/58; PULSE 72; RESP 16
--- NOTE | 2017-05-31 15:15 | P.CONS ---
History of Present Illness - Reason for Consult Consult date: 05/31/17 - History of Present Illness This is a 42 years old male, with a chronic history of severe neck pain with radiation to the right upper extremity associated with numbness and tingling sensation and weakness in his right upper extremity,, associated with headache, he was diagnosed with cervical spinal stenosis and cervical radiculopathy and patient had C5 6 and C6 7 anterior cervical decompression and fusion, his numbness and tingling sensation in prone after the surgery but he continued to have severe neck pain, he done extensive physical therapy, without any improvement of his right upper extremity weakness, he denies any fever or night sweats. Denies any change in the bowel movement or urination Past Medical History Past Medical History: Atrial Fibrillation, Skin Disorder Additional Past Medical History / Comment(s): PACEMAKER @ AGE 24, AND REPLACED APPROX 2010, BACK PAIN, ACNE History of Any Multi-Drug Resistant Organisms: MRSA Year Discovered:: 05/25/15 MDRO Source:: Left Wrist Past Surgical History: Cardiac Ablation, Heart Catheterization, Orthopedic Surgery, Pacemaker Additional Past Surgical History / Comment(s): ASD REPAIR TO REPAIR HOLE BETWEEN 2 UPPER CHAMBERS AT AGE 5., PACEMAKER INSERTED SINCE AGE 24, D/T BRADYCARDIA, AND REPLACED X1. Neck surgery - Fall 2016 (Dr. Horowitz) Past Anesthesia/Blood Transfusion Reactions: No Reported Reaction Additional Past Anesthesia/Blood Transfusion Reaction / Comm: problem with having face covered-panic attacks Type of Cardiac Device: Permanent Pacemaker Device Placement Date:: 2010 BIOTRONIC Past Psychological History: Anxiety, Depression Additional Psychological History / Comment(s): Single lives independently. Does have some input from his parents. He had 2 adult children one in a car accident in February 2015 he was taxing and driving and lost control. His other son is in good health. one pet Dog at home which is a Huskie had for 3 months. Stopped smoking tobacco 10 years ago. No history of her second alcohol or recreational drug use. 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 No experience. No international travel Smoking Status: Former smoker Past Alcohol Use History: None Reported Additional Past Alcohol Use History / Comment(s): started smoking at age 14 1pp , quit 2000. Smoked for 11 years. Past Drug Use History: None Reported Additional Drug Use History / Comment(s): past use of marijuana as teenager, none, now - Past Family History Father Family Medical History: Diabetes Mellitus Mother Family Medical History: Cancer Additional Family Medical History / Comment(s): FEMALE CANCER, CABG Medications and Allergies Home Medications Medication Instructions Recorded Confirmed Type ALPRAZolam [Xanax] 1 mg PO QID 11/25/15 05/31/17 History HYDROcodone/APAP 10-325MG [Kermit 1 tab PO Q4HR PRN 11/25/15 05/31/17 History 10-325] Divalproex Sodium [Depakote ER] 750 mg PO BID 06/13/16 05/31/17 History Doxycycline Monohydrate [Monodox] 100 mg PO BID 06/13/16 05/31/17 History Flecainide Acetate 50 mg PO Q12HR 06/13/16 05/31/17 History Albuterol Inhaler [Ventolin Hfa 1 - 2 puff INHALATION RT-Q6H PRN 11/23/16 History Inhaler] risperiDONE [RisperDAL] 1 mg PO BID 05/28/17 05/31/17 History Allergies Allergy/AdvReac Type Severity Reaction Status Date / Time sulfamethoxazole Allergy Unknown Rash/Hives/ Verified 05/31/17 13:24 [From Bactrim] Itching trimethoprim [From Bactrim] Allergy Unknown Rash/Hives/ Verified 05/31/17 13:24 Itching daptomycin Allergy Rash/Hives/ Verified 05/31/17 13:24 Itching hydromorphone HCl Allergy Rash/Hives/ Verified 05/31/17 13:24 [From Dilaudid] Itching vancomycin Allergy Rash/Hives/ Verified 05/31/17 13:24 Itching ibuprofen [From Motrin] AdvReac Nausea & Verified 05/31/17 13:24 Vomiting Physical Exam Vitals: Vital Signs Pulse Resp BP 05/31/17 13:26 72 16 119/58 Social history : not smoker , NO ETOH , NO Illegal drugs use Review of Systems : 1- Constitutional : no chills , no fever , no night sweats , 2- Ears : no ear discharge , no change in hearing 3-Nose, Mouth ,Throat ; no bleeding gums, no sore throat , no epistaxis , 4-Cardiovascular : Denies chest pain, , no orthopnea , no palpitation 5-Respiratory : Denies cough , no dyspnea , no hemoptysis 6-Gastrointestinal :, no change in bowel habits , no coffee- ground emesis . 7-Genitourinary : No hematuria , no discharge , no incontinence, 8-Musculoskeletal : No gait dysfunction , report sever neck pain , 9- Neurological : no ataxia , no tremor , no sezure , report headache right side of the neck 10-Psychatric , no suicidal ideation no hallucination 11- Endocrine : no cold intolerence , no polyuria , no polydypsia , 12-Hematologic : no easy bleeding , no easy brusing , 13-Allergic / immunology : no angioedema , no wheezing ,no allergic rhinitis 14-Integumentary : no brttle nails , no change hair / nails , no foot/leg ulcers . Physical Examinations : 1-Constitutional : Cooperative , not in acute distress . 2-HEENT : nech ; supple , no Lymphadenopathy , no Thyromegaly , :eyes , no icterus, no photophobia . ENT : , normal oropharynx , no Thrush 3- Respiratory : Chest clear to auscultations Bilaterally , no wheezing . 4- Cardiovascular : regular rate and rhythem , S1 , S2 , no S3 , no S4. 5- Gastrointestinal: abdomen soft no tenderness , no organomegally . 6- Genitourinary : Defferred . 7-Integumentary : No cellulitis , no ulcers , normal skin turgor , no cyanotic . 8- neurologic : Cranial nerve II to XII intact , no focal neurological deffecit 9-psychatric : alert , oriented X 3 , appropriate affect , intact judgment and insight . 10-Lymphatic : no Lymphadenopathy. 11- musculoskeltal: normal gait Cervical Spine motor stregnth in the deltoid and biceps, normal right side , normal Left side motor stregnth biceps and the wrist extensors decreased right side ,normal left side . motor stregnth in the triceps muscle . decreased Right side , normal Left side deep tendon reflexes normal at the biceps , decreased at Brachioradialis , on the right side positive cervical facet loading test . Multiple trigger points identified in the right side cervical paravertebral muscles Lumber spine moter stegnth lower extremities ,thigh and legs 5/5 Right side , 5/5 Left side Results Comments: X-ray of the cervical spine= changes from anterior cervical decompression and fusion at C5 6 and C6 7 Assessment and Plan Plan: Assessment and plan=1-cervical radiculopathy 2-myofascial pain syndrome and cervical area 3-cervical spondylosis History of cervical decompression and fusion at C5 6 and C6 7 Patient could benefit from trigger point injections and right-sided cervical paravertebral muscles, and at the same time we can do a cervical epidural steroid injection under fluoroscopy guidance , procedure risk and benefits and alternatives were discussed with the patient and he agreed with the procedure , the patient should continue to use his pain medication Kermit 10/325 every 6 hours when necessary , also the patient reported that he had side effects from Flexeril 10 mg daily at bedtime, I explained to the patient that he needs to decrease the dose to half a tablet daily at bedtime if the patient continued to have neck pain after the cervical epidural steroid injection and then it will be warranted to do diagnostic medial branch block , and if he had a good response then we'll proceed with the radiofrequency Time with Patient: Greater than 30
== END | disposition home or self-care (01) ==
LOC: PNWHC3 12:34
PROVIDERS: ATTEND Specialist
DX: G89.29 Other chronic pain (principal); M47.22 Other spondylosis with radiculopathy, cervical region; M79.1 Myalgia; I48.91 Unspecified atrial fibrillation; F41.9 Anxiety disorder, unspecified; F32.9 Major depressive disorder, single episode, unspecified; Z95.0 Presence of cardiac pacemaker; Z98.890 Other specified postprocedural states; Z87.891 Personal history of nicotine dependence; Z88.6 Allergy status to analgesic agent; Z79.899 Other long term (current) drug therapy; Z79.51 Long term (current) use of inhaled steroids; Z79.891 Long term (current) use of opiate analgesic; Z98.1 Arthrodesis status; Z88.1 Allergy status to other antibiotic agents
CPT/HCPCS: 99211

== ENCOUNTER 2017-06-20 06:44 | Day surgery (SDC) | payer OTHER ==
[2017-06-18 11:33] VITALS: BMI 22.4
[~2017-06-20 06:44] MED LIST changes: -BACITRACIN 50,000 UNIT, POLYMYXIN B 500,000 UNIT in SODIUM CHLORIDE 0.9% IRRIGATIO 1,00... IRRIGATION ONE; -DEXAMETHASONE SOD PHOSPHATE 10 MG/ML 1 ML VIAL IV ONE; +LACTATED RINGERS 1,000 ML IV SCH; -MIDAZOLAM 2 MG/2 ML VIAL IV PRN; -ONDANSETRON 4 MG/2 ML VIAL IVP ONE; -SCOPOLAMINE 1.5MG/72HR PATCH TRANSDERM ONE; -ceFAZolin 2 GM in SODIUM CHLORIDE 0.9% 100 ML IVPB ONE; -fentaNYL (PF) 50 MCG/ML 2 ML AMP IV PRN
[2017-06-20 07:12] VITALS: RESP 18; TEMP 98.1
[2017-06-20] MEDS ORDERED: LIDOCAINE 1% 20 ML VIAL (10MG/ML) FOR IV START INTRADERMA ONE (07:13)
[2017-06-20] MEDS ORDERED: LACTATED RINGERS 1,000 ML IV ONE (07:13)
--- NOTE | 2017-06-20 08:01 | P.PCN ---
Date of Procedure: 06/20/17 Preoperative Diagnosis: Right cervical radiculopathy Cervical spondylosis without myelopathy Post cervical fusion pain syndrome Atrial fibrillation Pacemaker dependence Postoperative Diagnosis: Same as above Procedure(s) Performed: Cervical epidural steroid injection under fluoroscopic guidance Description of Procedure: ANESTHESIA: Local anesthesia with 1% lidocaine and IV sedation with Versed2 mg EBL 0 PROCEDURE INDICATION: The patient with neck pain and radiculitis unresponsive to conservative treatment consents for procedure. PROCEDURE DESCRIPTION / TECHNIQUE: The patient was seen and identified in the preoperative area. Risks, benefits, complications, including but not limited to infections ,bleeding , allergic reactions to the medications ,and not coplete pain releife, and alternatives were discussed with the patient, the patient agreed to proceed with the procedure and signed the consent. Patient was taken to the OR and time out was completed. The patient was placed in the prone position on the procedure table. A pillow was placed under the patients chest to increase the flexion of the cervical spine . The cervical area was prepped and draped in the usual sterile fashion. Vital signs were closely monitored during the procedure. Conscious sedation was used during the procedure to decrease patients anxiety. Using anterior-posterior fluoroscopy, the C7-T1 interlaminar space was identified and the skin over this site was marked and then infiltrated with 1% lidocaine subcutaneously. Subsequently, a 20-gauge 3-1/2-inch Tuohy epidural needle was inserted and advanced toward the epidural space in the right paramedian approach by means of loss of resistance to air technique and guided by AP and lateral fluoroscopy. The correct needle position in the epidural space was verified with the injection of 1 mL of the water soluble contrast dye omnipaque and observing an excellent epidurogram with the epidural spread of the dye, after negative aspiration for blood and CSF and in the absence of paresthesias. Again after negative aspiration, a 1 ml mixture containing 10 mg of Decadron and 2 ml of preservative free Normal Saline solution was injected and a washout of epidurogram was seen. Needle was withdrawn intact, skin was cleansed, and bandages were applied.
[2017-06-20] MEDS ORDERED: IV FLUID CONTINUATION 1,000 ML IV ONE (08:02)
[2017-06-20 08:28] VITALS: BP 107/64; PULSE 62
--- NOTE | 2017-06-20 09:04 | FL ---
Fluoroscopy HISTORY: Pain 7 seconds fluoroscopy time supplied to the referring clinician. 1 intraoperative C-arm images docume nt the procedure. See dictated report from anesthesia.
== END 2017-06-20 08:37 | disposition home or self-care (01) ==
LOC: ORPAIN 06:44
PROVIDERS: ATTEND Anesthesiology
DX: M47.22 Other spondylosis with radiculopathy, cervical region (principal); I48.91 Unspecified atrial fibrillation; Z95.0 Presence of cardiac pacemaker; F41.9 Anxiety disorder, unspecified; F32.9 Major depressive disorder, single episode, unspecified; F41.0 Panic disorder [episodic paroxysmal anxiety]; Z87.891 Personal history of nicotine dependence; Z79.2 Long term (current) use of antibiotics; Z79.899 Other long term (current) drug therapy; Z88.2 Allergy status to sulfonamides; Z88.6 Allergy status to analgesic agent; Z88.1 Allergy status to other antibiotic agents; Z88.5 Allergy status to narcotic agent
CPT/HCPCS: 62321; 99152

== ENCOUNTER 2017-07-26 08:47 | Day surgery (SDC) | payer OTHER ==
[2017-07-20 08:31] VITALS: BMI 21.1
[2017-07-26 09:45] VITALS: RESP 16; TEMP 97.9
[2017-07-26] MEDS ORDERED: LIDOCAINE 1% 20 ML VIAL (10MG/ML) FOR IV START INTRADERMA ONE (09:45)
[2017-07-26] MEDS ORDERED: IV FLUID CONTINUATION 1,000 ML IV ONE (10:49)
--- NOTE | 2017-07-26 10:50 | P.PCN ---
Date of Procedure: 07/26/17 Procedure(s) Performed: . PROCEDURE 1. Cervical epidural steroid injection under fluoroscopic guidance, C7-T1 2. Cervical epidurogram. 3. 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 EBL 0 PROCEDURE INDICATION: The patient with neck pain and radiculitis unresponsive to conservative treatment consents for procedure. And also patient had myofascial pain component, for this reason we will trigger point injection plus cervical epidural steroid injections PROCEDURE DESCRIPTION / TECHNIQUE: The patient was seen and identified in the preoperative area. Risks, benefits, complications, including but not limited to infections ,bleeding , allergic reactions to the medications ,and not complete pain releife, and alternatives were discussed with the patient, the patient agreed to proceed with the procedure and signed the consent. Patient was taken to the OR and time out was completed. The patient was placed in the prone position on the procedure table. A pillow was placed under the patients chest to increase the cervical interlaminar space. The cervical area was prepped and draped in the usual sterile fashion. Vital signs were closely monitored during the procedure. Conscious sedation was used during the procedure to decrease patients anxiety. Using anterior-posterior fluoroscopy, the C7-T1 interlaminar space was identified and the skin over this site was marked and then infiltrated with 1% lidocaine subcutaneously. Subsequently, a 20-gauge 3-1/2-inch Tuohy epidural needle was inserted and advanced toward the epidural space by means of the `` hanging-drop technique and guided by AP and lateral fluoroscopy. The correct needle position in the epidural space was verified with the injection of 2 mL of the water soluble contrast dye Isovue-200 and observing an excellent epidurogram with the epidural spread of the dye, after negative aspiration for blood and CSF and in the absence of paresthesias. Again after negative aspiration, mixture containing 20 mg Dexamethasone and 2 ml of preservative- free normal saline injected and a washout of epidurogram was seen. Needle was withdrawn intact, Alice trigger point injections done by injecting 2 ML of Marcaine 0.5%, at each trigger point that's mentioned above, using 25-gauge needle, injection done after negative aspiration and there was no paresthesia during the injection, an injection done after the neck area was prepped with Betadine 3 (total of 5 trigger points was injected 3 on the right side cervical paravertebral muscles and 2 on the left side cervical paravertebral muscles ) Complications= none. Disposition= patient was placed in supine position and transferred to the recovery room area in stable condition and there was no evidence of upper or lower extremity motor or sensory deficit after the procedure patient was discharged from recovery room after discharge criteria met and home discharge instructions was given by the staff and patient will follow with the pain clinic in 2-4 weeks
--- NOTE | 2017-07-26 10:53 | FL ---
EXAMINATION TYPE: FL guided pain mgmt statistic DATE OF EXAM: 07/26/2017 COMPARISON: NONE HISTORY: Cervical epidural injection TECHNIQUE: Fluoroscopy. FINDINGS/IMPRESSION: Fluoroscopic guidance was provided during procedure performed by Dr. Schmitz. A total of 4 seconds of fluoroscopic time was utilized during the procedure and 1 spot images was ac quired demonstrating localization of the cervical spine and cervical fusion device.
[2017-07-26 11:06] VITALS: BP 126/78; PULSE 68
== END 2017-07-26 11:18 | disposition home or self-care (01) ==
LOC: ORPAIN 08:47
PROVIDERS: ATTEND Specialist
DX: M79.1 Myalgia (principal); M47.22 Other spondylosis with radiculopathy, cervical region; M96.1 Postlaminectomy syndrome, not elsewhere classified; I48.91 Unspecified atrial fibrillation; Z95.0 Presence of cardiac pacemaker; Z88.6 Allergy status to analgesic agent; Z88.1 Allergy status to other antibiotic agents; Z88.5 Allergy status to narcotic agent; Z88.2 Allergy status to sulfonamides; Z88.8 Allergy status to other drugs, medicaments and biological substances
CPT/HCPCS: 20553; 62321; J2250; J1100; J3010; Q9966; 99152

== ENCOUNTER → 2017-08-02 | Outpatient (CLI) | payer OTHER ==
--- NOTE | 2017-08-02 19:15 | CT ---
EXAMINATION TYPE: CT cervical spine wo con DATE OF EXAM: 08/02/2017 COMPARISON: 06/21/2016 HISTORY: Neck pain. Cervical surgery about [address] DLP: 501 mGycm Automated exposure control for dose reduction was used. TECHNIQUE: CT scan of the cervical spine is obtained without contrast, axial images are obtained, sa gittal and coronal reformatted images are also reviewed. FINDINGS: The vertebra have normal alignment. There is a plate with screws fusing anteriorly the vert ebra from C5 to C7. There is some mild posterior endplate spur formation at C5-6 C6-7. There is small posterior disc bulging at C4-5. Facet joints are intact. There is normal alignment. Skull base appea rs intact. I see no fracture. IMPRESSION: Anterior fusion surgery. Mild spondylotic changes. No complicating process seen. No adver se change compared to preoperative exam of 06/21/2016. Stable uncovertebral spurring and neural foramin al mild impingement on the right side at C6-7.
== END ==
LOC: RADCTMAIN 17:58
PROVIDERS: ATTEND Orthopaedic Surgery Orthopaedic Surgery of the Spine
DX: M47.22 Other spondylosis with radiculopathy, cervical region (principal); Z98.1 Arthrodesis status
CPT/HCPCS: 72125

== ENCOUNTER → 2017-08-22 | Outpatient (CLI) | payer OTHER ==
[2017-08-22 14:31] VITALS: BP 137/77; PULSE 77; RESP 18
--- NOTE | 2017-08-22 14:49 | P.PN ---
Progress Note - Text Progress Note Date: 08/22/17 Progress Note - Text In addition to above, 13-point review of systems is also negative for chest pain , shortness of breath, changes in vision, changes in hearing, new onset weakness , abdominal pain, diarrhea, extreme fatigue, malaise, fever, skin changes, homicidal or suicidal ideation, or bowel or bladder incontinence. Vital Signs: Reviewed in EMR Gen: WDWN, AAOx3, NAD HEENT: NCAT, EOMI, hearing grossly normal Pulm: resp unlabored Abd: soft, NT, ND Neck: supple, trachea midline Very tender to palpation over the occipital groove on the right side Facet loading: + bilateral in the cervical spine Neuro: Decreased strength in the right upper extremity consistent with history of nerve damage in the right upper extremity Imaging: Reviewed in EMR Assessment: 1. Right cervical radiculopathy 2. Right occipital neuralgia 3. Cervical facet spondylosis Plan: 1. Medication management: Patient does not receive prescriptions from this clinic 2. Interventional procedures: We will schedule the patient for right occipital nerve block 3. Counseling: The patient does not smoke and is not overweight No additional testing was ordered today. Disposition: f/u for right occipital nerve block PQRS measures: 1-Patient's medications are documented in the chart. 2-Tobacco use is positive, counseling given 3-Patient has not had a pneumococcal vaccine. 4-Advanced care planning discussed, patient unable to give. 5-Opioid contract signed with the patient. 6-Pain positive, follow-up visit or procedure scheduled 7-Patient's blood pressure measured and documented, and WNL. 8-Patient's weight was measured, and body mass index ABOVE the normal limits, and counseling was done. Patient instructed to follow up with PCP. 9-Patient WAS NOT identified as an unhealthy alcohol user.
== END | disposition home or self-care (01) ==
LOC: PNWHC3 13:40
PROVIDERS: ATTEND Pain Medicine Pain Medicine
DX: M54.12 Radiculopathy, cervical region (principal); M54.81 Occipital neuralgia; M47.22 Other spondylosis with radiculopathy, cervical region
CPT/HCPCS: 99211

== ENCOUNTER 2017-08-27 08:47 | Day surgery (SDC) | payer OTHER ==
[2017-08-23 09:10] VITALS: BMI 21.1
[2017-08-27] MEDS ORDERED: LACTATED RINGERS 1,000 ML IV SCH (09:45)
[2017-08-27 10:31] VITALS: RESP 16; TEMP 97.6
[2017-08-27 10:53] LABS: INR 1.3 (<1.2); Prothrombin Time 12.5 sec (9.0-12.0)
--- NOTE | 2017-08-27 11:09 | P.PCN ---
Date of Procedure: 08/27/17 Surgeon: Nishant Farah Pathology: none sent Condition: stable Disposition: PACU Description of Procedure: PREOPERATIVE DIAGNOSIS: 1-occipital neuralgia POSTOPERATIVE DIAGNOSIS:. 1-occipital neuralgia PROCEDURE: Right occipital nerve block ANESTHESIA: Conscious sedation with Versed. EBL: Minimal PROCEDURE INDICATION: The patient with neck pain and headache secondary to right occipital neuralgia and has failed conservative management. Off Coumadin x 5 days, INR 1.3 today. PROCEDURE DESCRIPTION / TECHNIQUE: The patient was seen and identified in the preoperative area. Risks, benefits, complications, and alternatives were discussed with the patient (including but not limited to incomplete pain relief , bleeding, infection, nerve damage, and allergies to medications), the patient agreed to proceed with the procedure and signed the consent after all questions were answered. Patient was taken to the OR and time out was completed to verify proper patient , position, laterality of pain, and allergies. Pt was placed in the sitting position. IV was started. Vital signs remained stable throughout the procedure. Conscious sedation was used during the procedure to decrease patients anxiety. The cervical area and bilateral occipital areas were prepped in the usual sterile fashion. Critical pause was taken. The right occipital ridge was palpated and was then accessed with a 25 G needle. Then after negative aspiration, 3 ml of the total 3 ml block solution containing 2 ml of PF Bupivacaine 0.5% and Kenalog 40 mg was injected. Needle was withdrawn intact. The entire procedure was then repeated on the left side exactly as above. Needle was withdrawn intact and there were no acute complications. DISPOSITION / PLANS: The patient was placed in a supine position and transferred to the recovery area in a stable condition for observation and was discharged from the recovery room after meeting discharge criteria. Home discharge instructions given to the patient by the staff. The patient was reexamined prior to discharge and there were no issues. The patient will follow up in clinic in 4-6 weeks to evaluate efficacy.
[2017-08-27] MEDS ORDERED: IV FLUID CONTINUATION 1,000 ML IV ONE (11:18)
[2017-08-27 11:43] VITALS: BP 113/71; PULSE 58
== END 2017-08-27 11:55 | disposition home or self-care (01) ==
LOC: ORPAIN 08:47
PROVIDERS: ATTEND Anesthesiology
DX: M54.81 Occipital neuralgia (principal); M47.22 Other spondylosis with radiculopathy, cervical region; M48.02 Spinal stenosis, cervical region; Z79.01 Long term (current) use of anticoagulants; Z88.1 Allergy status to other antibiotic agents; Z88.2 Allergy status to sulfonamides
CPT/HCPCS: 85610; 64405; J2250; J3301; J2001

== ENCOUNTER → 2017-09-03 | Day surgery (SDC) | payer OTHER ==
[2017-08-31 08:58] VITALS: BMI 21.1
[~2017-09-03] MED LIST changes: +DEXAMETHASONE SOD PHOSPHATE 10 MG/ML 1 ML VIAL IV ONE; +HYDROcodone/APAP 10-325MG 1 EACH TAB ONE; +ONDANSETRON 4 MG/2 ML VIAL IVP ONE; +SODIUM CHLORIDE 0.9% 1,000 ML IV SCH; +ceFAZolin 2,000 MG in DEXTROSE/WATER 1 50ML.BAG IVPB STA; +ceFAZolin IN SWFI 2 GM/20 ML SYRINGE IVP STA; +fentaNYL (PF) 50 MCG/ML 2 ML AMP IV PRN
[2017-09-03 09:47] VITALS: BP 123/73; PULSE 59; RESP 18; TEMP 98
[2017-09-03 10:03] LABS: Basophils % (A) 0 %; Eosinophils # (A) 0.1 k/uL (0-0.7); Eosinophils % (A) 2 %; HCT 41.2 % (39.0-53.0); HGB 13.9 gm/dL (13.0-17.5); Lymphocytes # (A) 1.3 k/uL (1.0-4.8); Lymphocytes % (A) 25 %; MCH 29.2 pg (25.0-35.0); MCHC 33.8 g/dL (31.0-37.0); MCV 86.4 fL (80.0-100.0); Mean Platelet Volume 7.1; Monocytes # (A) 0.4 k/uL (0-1.0); Monocytes % (A) 7 %; Neutrophils # (A) 3.3 k/uL (1.3-7.7); Neutrophils % (A) 64 %; Platelet Count 247 k/uL (150-450); RBC 4.76 m/uL (4.30-5.90); RDW 12.8 % (11.5-15.5); WBC 5.2 k/uL (3.8-10.6)
[2017-09-03 10:06] LABS: INR 1.4 (<1.2)
[2017-09-03 10:10] LABS: Anion Gap 13 mmol/L; Blood Urea Nitrogen 16 mg/dL (9-20); Calcium 10.2 mg/dL (8.4-10.2); Carbon Dioxide 23 mmol/L (22-30); Chloride 107 mmol/L (98-107); Glucose 86 mg/dL (74-99); Potassium 4.2 mmol/L (3.5-5.1); Sodium 143 mmol/L (137-145)
--- NOTE | 2017-09-03 13:39 | P.HPCAR ---
History of Present Illness Nurse Sadaf came to me stating that the patient was very upset about waiting and wanted to leave. She told him that was his right to do so. Apparently he also told her that Dr. Dent has been lying to him all along Patient extremely upset about waiting for his procedure Please see the note by nurse Sadaf I went to the patient to speak to him and told him that it was his choice to leave and he may do so. I have spent a lot of time with this gentleman explained to him his problems did he was having recurrent palpitations, I brought into the office explained that I was recommending an atrial flutter ablation for his symptoms. 2 days later he called the office was very angry that he had not been taking care of. 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, I think this would be a good choice for him since he does not have socorro in [place] I'm uncomfortable performing any procedure in a patient who does not have socorro in me Today's procedure is therefore canceled Physical Exam Vitals: Vital Signs Temp Pulse Resp BP Pulse Ox 09/03/17 09:46 98.0 F 59 L 18 123/73 97 Intake and Output 09/02/17 09/03/17 09/03/17 22:59 06:59 14:59 Intake Total 50 Balance 50 Intake: IV 50 Past Medical History Past Medical History: Atrial Fibrillation, Skin Disorder Additional Past Medical History / Comment(s): See Dr Childs's H&P,PACEMAKER @ AGE 24, AND REPLACED APPROX 2010, BACK PAIN, ACNE, rash on rt arm History of Any Multi-Drug Resistant Organisms: MRSA Date of last positivie culture/infection: 05/25/15 MDRO Source:: Left Wrist Past Surgical History: Cardiac Ablation, Heart Catheterization, Orthopedic Surgery, Pacemaker Additional Past Surgical History / Comment(s): ASD REPAIR TO REPAIR HOLE BETWEEN 2 UPPER CHAMBERS AT AGE 5., PACEMAKER INSERTED SINCE AGE 24, D/T BRADYCARDIA, AND REPLACED X1. Neck surgery - Fall 2016 (Dr. Horowitz) Past Anesthesia/Blood Transfusion Reactions: No Reported Reaction Additional Past Anesthesia/Blood Transfusion Reaction / Comment(s): problem with having face covered-panic attacks Type of Cardiac Device: Permanent Pacemaker Device Placement Date:: 2010 BIOTRONIC Smoking Status: Former smoker - Past Family History Father Family Medical History: Diabetes Mellitus Mother Family Medical History: No Reported History Additional Family Medical History / Comment(s): . Physical Examination Vital Signs Temp Pulse Resp BP Pulse Ox 09/03/17 09:46 98.0 F 59 L 18 123/73 97 Intake and Output 09/02/17 09/03/17 09/03/17 22:59 06:59 14:59 Intake Total 50 Balance 50 Intake: IV 50 Results 09/03/17 09:50 09/03/17 09:50 Coagulation 09/03/17 Range/Units 09:50 PT 13.0 H (9.0-12.0) sec CBC 09/03/17 Range/Units 09:50 WBC 5.2 (3.8-10.6) k/uL RBC 4.76 (4.30-5.90) m/uL Hgb 13.9 (13.0-17.5) gm/dL Hct 41.2 (39.0-53.0) % Plt Count 247 (150-450) k/uL Comprehensive Metabolic Panel 09/03/17 Range/Units 09:50 Sodium 143 (137-145) mmol/L Potassium 4.2 (3.5-5.1) mmol/L Chloride 107 (98-107) mmol/L Carbon Dioxide 23 (22-30) mmol/L BUN 16 (9-20) mg/dL Creatinine 0.73 (0.66-1.25) mg/dL Glucose 86 (74-99) mg/dL Calcium 10.2 (8.4-10.2) mg/dL Current Medications Generic Name Dose Route Start Last Admin Trade Name Freq PRN Reason Stop Dose Admin Fentanyl Citrate 50 mcg 09/02/17 15:36 Sublimaze IV 09/03/17 15:37 Q3M PRN Pain Control Lactated Ringer's 1,000 mls @ 20 mls/hr 09/02/17 15:45 Lactated Ringers IV .Q24H MARIBELL Sodium Chloride 1,000 mls @ 20 mls/hr 09/03/17 06:07 09/03/17 09:53 Saline 0.9% IV 50 mls .Q24H MARIBELL Administration Intake and Output 09/02/17 09/03/17 09/03/17 22:59 06:59 14:59 Intake Total 50 Balance 50 Intake: IV 50 09/03/17 09:50 09/03/17 09:50
== END | disposition home or self-care (01) ==
LOC: CATHEP 09:22
PROVIDERS: ATTEND Internal Medicine Clinical Cardiac Electrophysiology
DX: I48.91 Unspecified atrial fibrillation (principal); Z87.891 Personal history of nicotine dependence; Z95.0 Presence of cardiac pacemaker; Z53.8 Procedure and treatment not carried out for other reasons
CPT/HCPCS: 80048; 85025; 85610

== ENCOUNTER 2017-12-05 09:31 | Inpatient (IN) | payer OTHER ==
[2017-12-05] MEDS ORDERED: SODIUM CHLORIDE 0.9% 1,000 ML IV STA (10:16)
[2017-12-05 11:15] LABS: Basophils % (A) 0 %; Eosinophils # (A) 0.2 k/uL (0-0.7); Eosinophils % (A) 3 %; HCT 41.1 % (39.0-53.0); HGB 13.9 gm/dL (13.0-17.5); Lymphocytes % (A) 20 %; MCH 29.1 pg (25.0-35.0); MCHC 33.8 g/dL (31.0-37.0); MCV 86.3 fL (80.0-100.0); Mean Platelet Volume 6.8; Monocytes # (A) 0.3 k/uL (0-1.0); Monocytes % (A) 6 %; Neutrophils # (A) 3.5 k/uL (1.3-7.7); Neutrophils % (A) 68 %; Platelet Count 238 k/uL (150-450); RBC 4.76 m/uL (4.30-5.90); RDW 12.9 % (11.5-15.5)
[2017-12-05 11:25] LABS: ALT 43 U/L (21-72); AST 28 U/L (17-59); Acetaminophen <10.0 ug/mL; Alcohol <10 mg/dL; Alkaline Phosphatase 45 U/L (38-126); Anion Gap 8 mmol/L; Blood Urea Nitrogen 14 mg/dL (9-20); Calcium 9.8 mg/dL (8.4-10.2); Carbon Dioxide 25 mmol/L (22-30); Chloride 111 mmol/L (98-107); Glucose 89 mg/dL (74-99); Potassium 4.8 mmol/L (3.5-5.1); Salicylate <1.0 mg/dL; Sodium 144 mmol/L (137-145); Total Bilirubin 0.2 mg/dL (0.2-1.3); Total Protein 6.3 g/dL (6.3-8.2)
[2017-12-05] MEDS ORDERED: LORazepam 2 MG/ML INJ IV STA ×2 (11:35→17:24)
[2017-12-05] MEDS ORDERED: ZIPRASIDONE 20 MG VIAL IM STA (11:35)
--- NOTE | 2017-12-05 11:35 | ED ---
Overdose HPI - General Source: EMS, RN notes reviewed, old records reviewed Mode of arrival: EMS Limitations: no limitations <Sofia Garcia - Last Filed: 12/05/17 14:45> <Benjamin Matthews - Last Filed: 12/05/17 14:48> - General Chief Complaint: Overdose Stated Complaint: EPS eval Time Seen by Provider: 12/05/17 10:08 - History of Present Illness Initial Comments: 42-year-old male presents emergency department today with chief complaint of overdose. Patient had taken 8 2 mg Xanax this morning and 6 last night. Family called he was acting lethargic and drowsy. Patient reports that he had a recent cardiac ablation [facility] 3 days ago. He states these been having some pain, and complained that he wanted take these adamant to go to sleep and not wake up. He does not states he is suicidal however. Patient states that he has had no fevers or chills. He presents to the emergency department quite upset and hostile. He states that he does not want to be in this hospital. He states he wants to be transferred to [facility]. He's had poor experiences at this hospital. He is quite has had a silent states that he will harm anybody here. Patient's mother reports that today he was unable to walk and states Patient was falling down due to the taking the angiolytic. Patient reported that he can't take it anymore and wants to leave this earth. Patient was petitioned by his mother. Patient has history of bipolar disorder is being treated by [facility] aids social worker. (Sofia Garcia) - Related Data Home Medications Medication Instructions Recorded Confirmed HYDROcodone/APAP 10-325MG [[place] 1 tab PO Q4HR PRN 11/25/15 12/05/17 10-325] Divalproex Sodium [Depakote ER] 250 mg PO BID 06/13/16 12/05/17 Doxycycline Monohydrate [Monodox] 100 mg PO BID 06/13/16 12/05/17 Flecainide Acetate 50 mg PO BID 06/13/16 12/05/17 Albuterol Inhaler [Ventolin Hfa 1 - 2 puff INHALATION RT-QID PRN 11/23/16 Inhaler] risperiDONE [RisperDAL] 1 mg PO TID 05/28/17 12/05/17 ALPRAZolam [Xanax] 2 mg PO TID 12/05/17 12/05/17 Albuterol Nebulized [Ventolin 2.5 mg INHALATION RT-QID PRN 12/05/17 12/05/17 Nebulized] Divalproex ER [Depakote ER] 500 mg PO BID 12/05/17 12/05/17 Famotidine [Pepcid] 20 mg PO BID 12/05/17 12/05/17 Metoprolol Tartrate [Lopressor] 25 mg PO BID 12/05/17 12/05/17 Warfarin [Coumadin] 5 mg PO DIRECTED 12/05/17 12/05/17 hydrOXYzine HCL [Atarax] 25 mg PO TID PRN 12/05/17 12/05/17 Allergies Allergy/AdvReac Type Severity Reaction Status Date / Time sulfamethoxazole Allergy Unknown Rash/Hives/ Verified 12/05/17 14:35 [From Bactrim] Itching trimethoprim [From Bactrim] Allergy Unknown Rash/Hives/ Verified 12/05/17 14:35 Itching daptomycin Allergy Rash/Hives/ Verified 12/05/17 14:35 Itching hydromorphone HCl Allergy Rash/Hives/ Verified 12/05/17 14:35 [From Dilaudid] Itching lorazepam [From Ativan] Allergy Unknown Verified 12/05/17 14:35 vancomycin Allergy Rash/Hives/ Verified 12/05/17 14:35 Itching ibuprofen [From Motrin] AdvReac Nausea & Verified 12/05/17 14:35 Vomiting Review of Systems ROS Other: All systems not noted in ROS Statement are negative. <Sofia Garcia - Last Filed: 12/05/17 14:45> ROS Other: All systems not noted in ROS Statement are negative. <Benjamin Matthews - Last Filed: 12/05/17 14:48> ROS Statement: Those systems with pertinent positive or pertinent negative responses have been documented in the HPI. Past Medical History Past Medical History: Atrial Fibrillation, Musculoskeletal Disorder, Skin Disorder Additional Past Medical History / Comment(s): PACEMAKER @ AGE 24, AND REPLACED APPROX 2010, BACK PAIN, ACNE, rash on rt arm History of Any Multi-Drug Resistant Organisms: MRSA Date of last positivie culture/infection: 05/25/15 MDRO Source:: Left Wrist Past Surgical History: Ablation, Cardiac Ablation, Heart Catheterization, Orthopedic Surgery, Pacemaker Additional Past Surgical History / Comment(s): ASD REPAIR TO REPAIR HOLE BETWEEN 2 UPPER CHAMBERS AT AGE 5., PACEMAKER INSERTED SINCE AGE 24, D/T BRADYCARDIA, AND REPLACED X1. Neck surgery - Fall 2016 (Dr. Horowitz) Past Anesthesia/Blood Transfusion Reactions: No Reported Reaction Additional Past Anesthesia/Blood Transfusion Reaction / Comment(s): problem with having face covered-panic attacks Type of Cardiac Device: Permanent Pacemaker Device Placement Date:: 2010 BIOTRONIC Past Psychological History: Anxiety, Depression, Panic Disorder Smoking Status: Former smoker Past Alcohol Use History: None Reported Past Drug Use History: Prescription Drug Abuse - Past Family History Father Family Medical History: Diabetes Mellitus Mother Family Medical History: No Reported History Additional Family Medical History / Comment(s): . <Sofia Garcia - Last Filed: 12/05/17 14:45> General Exam Limitations: no limitations General appearance: alert, in no apparent distress Head exam: Present: atraumatic, normocephalic, normal inspection Eye exam: Present: normal appearance, PERRL, EOMI. Absent: scleral icterus, conjunctival injection, periorbital swelling ENT exam: Present: normal exam, mucous membranes moist Neck exam: Present: normal inspection. Absent: tenderness, meningismus, lymphadenopathy Respiratory exam: Present: normal lung sounds bilaterally. Absent: respiratory distress, wheezes, rales, rhonchi, stridor Cardiovascular Exam: Present: regular rate, normal rhythm, normal heart sounds. Absent: systolic murmur, diastolic murmur, rubs, gallop, clicks GI/Abdominal exam: Present: soft, normal bowel sounds. Absent: distended, tenderness, guarding, rebound, rigid Extremities exam: Present: normal inspection, full ROM, normal capillary refill. Absent: tenderness, pedal edema, joint swelling, calf tenderness Back exam: Present: normal inspection, full ROM Neurological exam: Present: alert, oriented X3, CN II-XII intact Psychiatric exam: Present: suicidal ideation (Patient does not state that he is suicidal however he attempted overdose on Xanax to "not wake up anymore".), other (Hostile). Absent: normal affect, normal mood Skin exam: Present: warm, dry, intact, normal color. Absent: rash <Sofia Garcia - Last Filed: 12/05/17 14:45> <Benjamin Matthews - Last Filed: 12/05/17 14:48> - General Exam Comments Initial Comments: 42-year-old male. Sitting cross time. Appears quite hostile. (Sofia Garcia) Course <Sofia Garcia - Last Filed: 12/05/17 14:45> <Benjamin Matthews - Last Filed: 12/05/17 14:48> Vital Signs 12/05/17 12/05/17 09:43 13:43 Temperature 97.1 F L Pulse Rate 83 69 Respiratory 18 18 Rate Blood Pressure 111/58 O2 Sat by Pulse 96 98 Oximetry - Reevaluation(s) Reevaluation #1: 12/05/17 13:36 Patient is reevaluated this time, resting comfortably in bed, sedated. Restraints are removed. (Sofia Garcia) Reevaluation #2: 12/05/17 14:38 PA supervision: I personally saw and examined patient. I reviewed and agree with the PA findings including all diagnostic interpretations treatment plans is written unless otherwise stated. Patient will require admission for clearance by cardiology. Will be admitted with psychiatric evaluation after clearance. (Benjamin Matthews) Procedures - Restraint - Face to Face Restraint Occurrence 1 Patient's Immediate Situation: Endangers self safety, Endangers others' safety, Endangers staff safety, Violent behavior Patient's Reaction to the Intervention: Angry, Hostile, Aggressive, Combative, Restless Patient's Medical & Behavioral Condition: Agitated, Manic Need to Continue or Terminate Restraint or Seclusion: Continue Face to Face Eval of Restraint Date: 12/05/17 Face to Face Eval of Restraint Time: 11:42 <Sofia Garcia - Last Filed: 12/05/17 14:45> <Benjamin Matthews - Last Filed: 12/05/17 14:48> - Restraint - Face to Face Restraint Occurrence 1 Patient's Immediate Situation - Comment: Patient has been resistant to care, combative and verbally abusive toward staff. (Sofia Garcia) Patient's Reaction to the Intervention - Comment: Patient is hostile and combative for staph while placing restraints. Approximately 8 staff members were used to hold the Patient down for restraint initiation. (Sofia Garcia) Need to Continue or Terminate Restraint/Seclusion - Comment: Continue restraints until Patient hasn't called and medicated with Geodon and Ativan. (Sofia Garcia) Medical Decision Making - Lab Data Result diagrams: 12/05/17 11:00 12/05/17 11:00 - Radiology Data Radiology results: report reviewed <Sofia Garcia - Last Filed: 12/05/17 14:45> - Lab Data Result diagrams: 12/05/17 11:00 12/05/17 11:00 - EKG Data -: EKG Interpreted by Ca EKG shows normal: sinus rhythm (Sinus rhythm rate of 87. Interval 168 QRS duration 90 QT since QTC 370/445 right word axis nonspecific ST-T wave configuration.) <Benjamin Matthews - Last Filed: 12/05/17 14:48> - Medical Decision Making Patient is a 42-year-old male with overdose on Ativan. He states he did not want to wake up. He does not specifically say he suicidal. Upon arrival he was quite hostile in the emergency department. Threatening staff. Patient had to be chemically sedated as well as 4 point restraints were initiated. Patient has been petitioned by his family due to suicidal attempts. Patient did have a history of cardiac ablation 2 days ago for paroxysmal A. fib. He states he's been having issues with chronic chest pain. EKG shows no significant changes at this time. I did check lab work and cardiac enzymes. He does have a elevated troponin however he does not complain of any specific chest pain this time. A troponin elevation could likely be due to the recent ablation. The simultaneous admit the Patient medically, with slight get her consult. Patient lab repeat troponins. Dr. Matthews discussed the case with . (Sofia Garcia) - Lab Data Lab Results 12/05/17 12/05/17 12/05/17 Range/Units 11:00 11:00 11:00 WBC 5.0 (3.8-10.6) k/uL RBC 4.76 (4.30-5.90) m/uL Hgb 13.9 (13.0-17.5) gm/dL Hct 41.1 (39.0-53.0) % MCV 86.3 (80.0-100.0) fL MCH 29.1 (25.0-35.0) pg MCHC 33.8 (31.0-37.0) g/dL RDW 12.9 (11.5-15.5) % Plt Count 238 (150-450) k/uL Neutrophils % 68 % Lymphocytes % 20 % Monocytes % 6 % Eosinophils % 3 % Basophils % 0 % Neutrophils # 3.5 (1.3-7.7) k/uL Lymphocytes # 1.0 (1.0-4.8) k/uL Monocytes # 0.3 (0-1.0) k/uL Eosinophils # 0.2 (0-0.7) k/uL Basophils # 0.0 (0-0.2) k/uL Sodium 144 (137-145) mmol/L Potassium 4.8 (3.5-5.1) mmol/L Chloride 111 H (98-107) mmol/L Carbon Dioxide 25 (22-30) mmol/L Anion Gap 8 mmol/L BUN 14 (9-20) mg/dL Creatinine 0.99 (0.66-1.25) mg/dL Est GFR (CKD-EPI)AfAm >90 (>60 ml/min/1.73 sqM) Est GFR (CKD-EPI)NonAf >90 (>60 ml/min/1.73 sqM) Glucose 89 (74-99) mg/dL Calcium 9.8 (8.4-10.2) mg/dL Total Bilirubin 0.2 (0.2-1.3) mg/dL AST 28 (17-59) U/L ALT 43 (21-72) U/L Alkaline Phosphatase 45 (38-126) U/L Troponin I 0.075 H* (0.000-0.034) ng/mL Total Protein 6.3 (6.3-8.2) g/dL Albumin 4.0 (3.5-5.0) g/dL Salicylates <1.0 mg/dL Acetaminophen <10.0 ug/mL Serum Alcohol <10 mg/dL 12/05/17 11:34 EKG shows a sinus rhythm, rightward axis. ST and T-wave abnormality. Consider anterolateral ischemia. Ventricular rate of 87 bpm. Was 160. QRS ration 90. QT QTc is 370/445 ms. (Sofia Garcia) - Radiology Data One view chest x-ray shows evidence of cardiomegaly. (Sofia Garcia) Disposition Is patient prescribed a controlled substance at d/c from ED?: No Time of Disposition: 14:47 <Sofia Garcia - Last Filed: 12/05/17 14:45> <Benjamin Matthesw - Last Filed: 12/05/17 14:48> Clinical Impression: Elevated troponin, Depression, Suicidal ideation Disposition: ADMITTED IP TO THIS HOSP Condition: Good Referrals: Byron Chua MD [Primary Care Provider] - 1-2 days
--- NOTE | 2017-12-05 13:07 | XR ---
EXAMINATION TYPE: XR chest 1V portable DATE OF EXAM: 12/05/2017 COMPARISON: NONE HISTORY: Pain TECHNIQUE: Single frontal view of the chest is obtained. FINDINGS: Cardiomegaly seen with postoperative change and cardiac device. No overt failure or pneumo thorax. Postsurgical change overlying cervical spine. Hypertrophic and degenerative change of the spi ne. IMPRESSION: Cardiomegaly
[2017-12-05] MEDS ORDERED: ONDANSETRON 4 MG/2 ML VIAL IVP PRN (14:47)
[2017-12-05] MEDS ORDERED: ACETAMINOPHEN TAB 325 MG TAB PO PRN (14:47)
[2017-12-05] MEDS ORDERED: IBUPROFEN 400 MG TAB PO PRN (14:47)
[2017-12-05] MEDS ORDERED: NALOXONE 0.4 MG/ML 1 ML VIAL IV PRN ×2 (14:47→15:49)
[2017-12-05] MEDS ORDERED: traMADol 50 MG TAB PO PRN (14:47)
[2017-12-05 15:11] LABS: INR 1.4 (<1.2)
[2017-12-05] MEDS: SODIUM CHLORIDE 0.9% 1,000 ML IV SCH (15:18)
[2017-12-05] MEDS ORDERED: ALBUTEROL NEBULIZED 2.5 MG/3 ML INHALATION PRN (15:53)
[2017-12-05] MEDS ORDERED: LORazepam 2 MG/ML INJ IV PRN (15:58)
[2017-12-05] MEDS ORDERED: WARFARIN 5 MG TAB PO SCH (16:00)
--- NOTE | 2017-12-05 16:05 | P.HPIM ---
History of Present Illness H&P Date: 12/05/17 Chief Complaint: Overdose H&P was mostly obtained from the ED note as patient was obtunded and difficult to arouse, unwilling to answer questions. 42-year-old male with past medical history of atrial fibrillation and bipolar disorder presents the ED after overdosing on Xanax. Per ED note, patient took 82 mg Xanax pills this morning and 62 mg Xanax pills last night. EMS was called this patient was lethargic and drowsy. Of note patient underwent a cardiac ablation at [facility] 3 days ago. Patient currently denies any symptoms. Patient denies suicidal ideation, homicidal ideation, auditory and visual hallucinations. He denies headache, lower extremity edema, nausea, vomiting, fever, cough, chest pain, shortness of breath, palpitations, changes in urination or bowel habits. In the ED is found to have an INR 1.4, troponin of 0.075, EKG showing normal sinus rhythm with a rightward axis deviation and ST and T-wave abnormalities, cardiomegaly on chest x-ray. He is admitted to the medical floor for elevated troponins, pending transfer to psych. Review of Systems All systems: negative Past Medical History Past Medical History: Atrial Fibrillation, Musculoskeletal Disorder, Skin Disorder Additional Past Medical History / Comment(s): PACEMAKER @ AGE 24, AND REPLACED APPROX 2010, BACK PAIN, ACNE, rash on rt arm History of Any Multi-Drug Resistant Organisms: MRSA Date of last positivie culture/infection: 05/25/15 MDRO Source:: Left Wrist Past Surgical History: Ablation, Cardiac Ablation, Heart Catheterization, Orthopedic Surgery, Pacemaker Additional Past Surgical History / Comment(s): ASD REPAIR TO REPAIR HOLE BETWEEN 2 UPPER CHAMBERS AT AGE 5., PACEMAKER INSERTED SINCE AGE 24, D/T BRADYCARDIA, AND REPLACED X1. Neck surgery - Fall 2016 (Dr. Horowitz) Past Anesthesia/Blood Transfusion Reactions: No Reported Reaction Additional Past Anesthesia/Blood Transfusion Reaction / Comment(s): problem with having face covered-panic attacks Type of Cardiac Device: Permanent Pacemaker Device Placement Date:: 2010 BIOTRONIC Past Psychological History: Anxiety, Depression, Panic Disorder Smoking Status: Former smoker Past Alcohol Use History: None Reported Past Drug Use History: Prescription Drug Abuse - Past Family History Father Family Medical History: Diabetes Mellitus Mother Family Medical History: No Reported History Additional Family Medical History / Comment(s): . Medications and Allergies Home Medications Medication Instructions Recorded Confirmed Type HYDROcodone/APAP 10-325MG [[place] 1 tab PO Q4HR PRN 11/25/15 12/05/17 History 10-325] Divalproex Sodium [Depakote ER] 250 mg PO BID 06/13/16 12/05/17 History Doxycycline Monohydrate [Monodox] 100 mg PO BID 06/13/16 12/05/17 History Flecainide Acetate 50 mg PO BID 06/13/16 12/05/17 History Albuterol Inhaler [Ventolin Hfa 1 - 2 puff INHALATION RT-QID PRN 11/23/16 History Inhaler] risperiDONE [RisperDAL] 1 mg PO TID 05/28/17 12/05/17 History ALPRAZolam [Xanax] 2 mg PO TID 12/05/17 12/05/17 History Albuterol Nebulized [Ventolin 2.5 mg INHALATION RT-QID PRN 12/05/17 12/05/17 History Nebulized] Divalproex ER [Depakote ER] 500 mg PO BID 12/05/17 12/05/17 History Famotidine [Pepcid] 20 mg PO BID 12/05/17 12/05/17 History Metoprolol Tartrate [Lopressor] 25 mg PO BID 12/05/17 12/05/17 History Warfarin [Coumadin] 5 mg PO DIRECTED 12/05/17 12/05/17 History hydrOXYzine HCL [Atarax] 25 mg PO TID PRN 12/05/17 12/05/17 History Allergies Allergy/AdvReac Type Severity Reaction Status Date / Time sulfamethoxazole Allergy Unknown Rash/Hives/ Verified 12/05/17 14:35 [From Bactrim] Itching trimethoprim [From Bactrim] Allergy Unknown Rash/Hives/ Verified 12/05/17 14:35 Itching daptomycin Allergy Rash/Hives/ Verified 12/05/17 14:35 Itching hydromorphone HCl Allergy Rash/Hives/ Verified 12/05/17 14:35 [From Dilaudid] Itching lorazepam [From Ativan] Allergy Unknown Verified 12/05/17 14:35 vancomycin Allergy Rash/Hives/ Verified 12/05/17 14:35 Itching ibuprofen [From Motrin] AdvReac Nausea & Verified 12/05/17 14:35 Vomiting Physical Exam Vitals: Vital Signs Temp Pulse Resp BP Pulse Ox 12/05/17 13:43 69 18 98 12/05/17 09:43 97.1 F L 83 18 111/58 96 Intake and Output 12/05/17 12/05/17 12/05/17 06:59 14:59 22:59 Other: Weight 68.039 kg General: non toxic, no distress, appears at stated age Derm: warm, dry Head: atraumatic, normocephalic, symmetric Eyes: EOMI, no lid lag, anicteric sclera Mouth: no lip lesion, mucus membranes moist Cardiovascular: S1S2 reg, no murmur, positive posterior tibial pulse bilateral, sternal scar Lungs: CTA bilateral, no rhonchi, no rales , no accessory muscle use Abdominal: soft, nontender to palpation, no guarding, no appreciable organomegaly Ext: no gross muscle atrophy, no edema, no contractures Psych: Unable to assess Results CBC & Chem 7: 12/05/17 11:00 12/05/17 11:00 Labs: Abnormal Lab Results - Last 24 Hours (Table) 12/05/17 12/05/17 12/05/17 Range/Units 11:00 11:00 11:00 PT 13.0 H (9.0-12.0) sec INR 1.4 H (<1.2) Chloride 111 H (98-107) mmol/L Troponin I 0.075 H* (0.000-0.034) ng/mL Thrombosis Risk Factor Assmnt - Choose All That Apply Any of the Below Risk Factors Present?: Yes Each Factor Represents 1 point: Age 41-60 years Other Risk Factors: No Other congenital or acquired thrombophilia - If yes, enter type in comment: No Thrombosis Risk Factor Assessment Total Risk Factor Score: 1 Thrombosis Risk Factor Assessment Level: Low Risk Assessment and Plan Assessment: Assessment and Plan 1. Troponemia: Likely related to ablation 3 days ago. Trop 0.075, EKG shows NSR. Cardiology consulted from the ED. Little concern for ACS. Trend Trop/EKG to rule out ACS. FU Echo, Cardiology 2. A-Fib: Ablation 3 days ago. Continue Metoprolol 25 mg PO BID, Flexainide 50 mg PO BID. AC with Coumadin 5 mg PO QHS. Subtherapeutic INR but unsure if compliant. Telemetry monitoring. FU INR, Cardiology 3. Asthma: Stable. Albuterol neb PRN 4. Bipolar disorder/Anxiety: Continue Depakote 750 mg PO BID, Risperidone 1 mg PO TID. 1:1 sitter for SI. Hold home dose of Xanax. Ativan 2 mg IV Q4 PRN for seizures. FU Psyc 5. DVT/GI Prophylaxis: Pepcid 20 mg PO BID. SCD boots. Early ambulation.
[2017-12-05] MEDS ORDERED: HALOPERIDOL 1 MG TAB PO STA (20:40)
[2017-12-05] MEDS: METOPROLOL TARTRATE 25 MG TAB PO SCH (20:57)
[2017-12-05] MEDS: FAMOTIDINE 20 MG TAB PO SCH (20:58)
[2017-12-05] MEDS: DIVALPROEX ER 250 MG TAB.ER.24H PO SCH (20:58)
[2017-12-05] MEDS: FLECAINIDE 50 MG TAB PO SCH (20:58)
[2017-12-05] MEDS: risperiDONE 1 MG TAB PO SCH (20:58)
[2017-12-05] MEDS: DIVALPROEX ER 500 MG TAB.ER.24H PO SCH (20:59)
[2017-12-05] MEDS: HYDROcodone/APAP 10-325MG 1 EACH TAB PO PRN (22:17)
[2017-12-06] MEDS: risperiDONE 1 MG TAB PO SCH ×4 (00:10→21:05)
[2017-12-06] MEDS: diphenhydrAMINE 50 MG/ML 1 ML VIAL IVP PRN ×5 (00:21→22:02)
[2017-12-06] MEDS: SODIUM CHLORIDE 0.9% 1,000 ML IV SCH ×3 (00:30→17:08)
[2017-12-06] MEDS ORDERED: hydrOXYzine HCL 25 MG TAB PO PRN (07:12)
[2017-12-06] MEDS: DIVALPROEX ER 250 MG TAB.ER.24H PO SCH ×2 (08:23→21:06)
[2017-12-06] MEDS: METOPROLOL TARTRATE 25 MG TAB PO SCH ×2 (08:23→21:06)
[2017-12-06] MEDS: FAMOTIDINE 20 MG TAB PO SCH (08:23)
[2017-12-06] MEDS: DIVALPROEX ER 500 MG TAB.ER.24H PO SCH ×2 (08:23→21:06)
[2017-12-06] MEDS: FLECAINIDE 50 MG TAB PO SCH ×2 (08:23→21:05)
[2017-12-06] MEDS: HYDROcodone/APAP 10-325MG 1 EACH TAB PO PRN ×2 (08:24→15:52)
--- NOTE | 2017-12-06 08:25 | P.CRDCN ---
History of Present Illness Consult date: 12/06/17 Requesting physician: Kumar Hammond Consult reason: chest pain Chief complaint: Chest pain History of present illness: This is a 42-year-old gentleman who used to follow with Dr. Yates in the office, he has history of ASD status post patch repair and closure at the age of 5 years, history of atrial fibrillation, nonsmoker, no EtOH, no hypertension, no diabetes, no hyperlipidemia, according to the patient, he underwent an ablation procedure at [facility] 3 days ago, since then he states he spends experiencing significant pain that worsens when he takes a deep breath. Apparently the patient was having so much pain that he took several Xanax pills prior to coming into the hospital, and was found quite lethargic and unresponsive. For this reason he was brought to the emergency room for further evaluation. At the time of my examination this morning, patient denies any attempted suicide, he states he just wanted to sleep through the night and not experience pain. At the time of my examination this morning he does complain of pain when he takes a deep breath in the midsternal area. His initial EKG on presentation here showed a normal sinus rhythm with ST-T wave changes noted in the anterior lateral leads. There was no morning EKG performed. Chest x-ray shows cardiomegaly. Blood pressure on arrival 110/58, heart rate in the 80s, 96% on room air. Blood pressure this morning 105/50 with a heart rate in the 70s, 97% on room air. He is afebrile. CBC is normal. Sodium 144, potassium 4.8, BUN 14, creatinine 0.9. Troponins 0.075, 0.064, 0.063. INR 1.4. Past Medical History Past Medical History: Atrial Fibrillation, Musculoskeletal Disorder, Skin Disorder Additional Past Medical History / Comment(s): PACEMAKER @ AGE 24, AND REPLACED APPROX 2010, BACK PAIN, ACNE, rash on rt arm History of Any Multi-Drug Resistant Organisms: MRSA Date of last positivie culture/infection: 05/25/15 MDRO Source:: Left Wrist Past Surgical History: Ablation, Cardiac Ablation, Heart Catheterization, Orthopedic Surgery, Pacemaker Additional Past Surgical History / Comment(s): ASD REPAIR TO REPAIR HOLE BETWEEN 2 UPPER CHAMBERS AT AGE 5., PACEMAKER INSERTED SINCE AGE 24, D/T BRADYCARDIA, AND REPLACED X1. Neck surgery - Fall 2016 (Dr. Horowitz) Past Anesthesia/Blood Transfusion Reactions: No Reported Reaction Additional Past Anesthesia/Blood Transfusion Reaction / Comment(s): problem with having face covered-panic attacks Type of Cardiac Device: Permanent Pacemaker Device Placement Date:: 2010 BIOT Past Psychological History: Anxiety, Bipolar, Depression, Panic Disorder Additional Psychological History / Comment(s): antisocial disorder Smoking Status: Never smoker Past Alcohol Use History: None Reported Additional Past Alcohol Use History / Comment(s): started smoking at age 14 1pp , quit 2000. Smoked for 11 years. Past Drug Use History: Prescription Drug Abuse Additional Drug Use History / Comment(s): past use of marijuana as teenager, none now - Past Family History Father Family Medical History: Diabetes Mellitus Mother Family Medical History: No Reported History Additional Family Medical History / Comment(s): . Medications and Allergies Home Medications Medication Instructions Recorded Confirmed Type HYDROcodone/APAP 10-325MG [Austin 1 tab PO Q4HR PRN 11/25/15 12/05/17 History 10-325] Divalproex Sodium [Depakote ER] 250 mg PO BID 06/13/16 12/05/17 History Doxycycline Monohydrate [Monodox] 100 mg PO BID 06/13/16 12/05/17 History Flecainide Acetate 50 mg PO BID 06/13/16 12/05/17 History Albuterol Inhaler [Ventolin Hfa 1 - 2 puff INHALATION RT-QID PRN 11/23/16 History Inhaler] risperiDONE [RisperDAL] 1 mg PO TID 05/28/17 12/05/17 History ALPRAZolam [Xanax] 2 mg PO TID 12/05/17 12/05/17 History Albuterol Nebulized [Ventolin 2.5 mg INHALATION RT-QID PRN 12/05/17 12/05/17 History Nebulized] Divalproex ER [Depakote ER] 500 mg PO BID 12/05/17 12/05/17 History Famotidine [Pepcid] 20 mg PO BID 12/05/17 12/05/17 History Metoprolol Tartrate [Lopressor] 25 mg PO BID 12/05/17 12/05/17 History Warfarin [Coumadin] 5 mg PO DIRECTED 12/05/17 12/05/17 History hydrOXYzine HCL [Atarax] 25 mg PO TID PRN 12/05/17 12/05/17 History Allergies Allergy/AdvReac Type Severity Reaction Status Date / Time sulfamethoxazole Allergy Unknown Rash/Hives/ Verified 12/05/17 14:35 [From Bactrim] Itching trimethoprim [From Bactrim] Allergy Unknown Rash/Hives/ Verified 12/05/17 14:35 Itching daptomycin Allergy Rash/Hives/ Verified 12/05/17 14:35 Itching hydromorphone HCl Allergy Rash/Hives/ Verified 12/05/17 14:35 [From Dilaudid] Itching lorazepam [From Ativan] Allergy Unknown Verified 12/05/17 14:35 vancomycin Allergy Rash/Hives/ Verified 12/05/17 14:35 Itching ibuprofen [From Motrin] AdvReac Nausea & Verified 12/05/17 14:35 Vomiting Physical Exam Vitals: Vital Signs Temp Pulse Pulse Resp BP BP Pulse Ox 12/06/17 03:30 97.2 F L 64 16 98/57 97 12/05/17 23:15 74 16 91/56 96 12/05/17 20:15 97.1 F L 82 18 111/66 96 12/05/17 16:35 97.4 F L 73 18 110/59 97 12/05/17 15:38 83 18 91/56 94 L 12/05/17 13:43 69 18 98 12/05/17 09:43 97.1 F L 83 18 111/58 96 Intake and Output 12/05/17 12/06/17 12/06/17 22:59 06:59 14:59 Intake Total 240 Balance 240 Intake: Oral 240 Other: # Voids 1 Weight 71.2 kg 72.5 kg PHYSICAL EXAMINATION: GENERAL: 42-year-old gentleman in no acute distress at the time of my examination HEENT: Head is atraumatic, normocephalic. Pupils equal, round. Sclera anicteric. Conjunctiva are clear. Mucous membranes of the mouth are moist. Neck is supple. There is no elevated jugular venous pressure. No carotid bruit is heard. HEART EXAMINATION: Heart S1 and S2 systolic murmur is heard. CHEST EXAMINATION:[ Lungs are clear to auscultation and precussion. Positive chest wall tenderness is noted on palpation and with deep breathing ABDOMEN: Soft, nontender. Bowel sounds are heard. No organomegaly noted. EXTREMITIES: 2+ peripheral pulses with no evidence of peripheral edema and no calf tenderness noted. NEUROLOGIC patient is awake, alert and oriented ?-3. . Results 12/05/17 11:00 12/05/17 11:00 Cardiac Enzymes 12/05/17 12/05/17 12/05/17 Range/Units 11:00 11:00 17:52 AST 28 (17-59) U/L Troponin I 0.075 H* 0.064 H* (0.000-0.034) ng/mL 12/05/17 Range/Units 23:03 AST (17-59) U/L Troponin I 0.063 H* (0.000-0.034) ng/mL Coagulation 12/05/17 Range/Units 11:00 PT 13.0 H (9.0-12.0) sec CBC 12/05/17 Range/Units 11:00 WBC 5.0 (3.8-10.6) k/uL RBC 4.76 (4.30-5.90) m/uL Hgb 13.9 (13.0-17.5) gm/dL Hct 41.1 (39.0-53.0) % Plt Count 238 (150-450) k/uL Comprehensive Metabolic Panel 12/05/17 Range/Units 11:00 Sodium 144 (137-145) mmol/L Potassium 4.8 (3.5-5.1) mmol/L Chloride 111 H (98-107) mmol/L Carbon Dioxide 25 (22-30) mmol/L BUN 14 (9-20) mg/dL Creatinine 0.99 (0.66-1.25) mg/dL Glucose 89 (74-99) mg/dL Calcium 9.8 (8.4-10.2) mg/dL AST 28 (17-59) U/L ALT 43 (21-72) U/L Alkaline Phosphatase 45 (38-126) U/L Total Protein 6.3 (6.3-8.2) g/dL Albumin 4.0 (3.5-5.0) g/dL Current Medications Generic Name Dose Route Start Last Admin Trade Name Freq PRN Reason Stop Dose Admin Acetaminophen 650 mg 12/05/17 14:47 Tylenol Tab PO Q6HR PRN Mild Pain or Fever > 100.5 Hydrocodone Bitart/Acetaminophen 1 each 12/05/17 21:51 12/05/17 22:17 Austin 10 PO 1 each Q4HR PRN Administration Pain Albuterol Sulfate 2.5 mg 12/05/17 15:53 Ventolin Nebulized INHALATION RT-QID PRN Shortness Of Breath Diphenhydramine HCl 25 mg 12/05/17 23:46 12/06/17 05:27 Benadryl IVP 25 mg Q6HR PRN Administration Allergy Symptoms Divalproex Sodium 250 mg 12/05/17 21:00 12/05/17 20:58 Depakote Er PO 250 mg BID MARIBELL Administration Divalproex Sodium 500 mg 12/05/17 21:00 12/05/17 20:59 Depakote Er PO 500 mg BID MARIBELL Administration Famotidine 20 mg 12/05/17 21:00 12/05/17 20:58 Pepcid PO 20 mg BID MARIBELL Administration Flecainide Acetate 50 mg 12/05/17 21:00 12/05/17 20:58 Tambocor PO 50 mg BID MARIBELL Administration Hydroxyzine HCl 25 mg 12/06/17 07:12 Atarax PO TID PRN Anxiety Sodium Chloride 1,000 mls @ 120 mls/hr 12/05/17 15:00 12/06/17 00:30 Saline 0.9% IV 120 mls/hr .Q8H20M MARIBELL Administration Ibuprofen 400 mg 12/05/17 14:47 Motrin PO Q6HR PRN Mild Pain or Fever > 100.5 Lorazepam 2 mg 12/05/17 15:58 Ativan IV Q6HR PRN Seizures Metoprolol Tartrate 25 mg 12/05/17 21:00 12/05/17 20:57 Lopressor PO 25 mg BID MARIBELL Administration Naloxone HCl 0.2 mg 12/05/17 14:47 Narcan IV Q2M PRN Opioid Reversal Ondansetron HCl 4 mg 12/05/17 14:47 Zofran IVP Q8HR PRN Nausea And Vomiting Pantoprazole Sodium 40 mg 12/06/17 09:00 Protonix IV DAILY MARIBELL Risperidone 1 mg 12/05/17 16:00 12/06/17 00:10 Risperdal PO Not Given TID MARIBELL Tramadol HCl 50 mg 12/05/17 14:47 12/05/17 20:57 Ultram PO 50 mg Q6H PRN Administration Moderate Pain Warfarin Sodium 5 mg 12/05/17 16:00 Coumadin PO DIRECTED MARIBELL Intake and Output 12/05/17 12/06/17 12/06/17 22:59 06:59 14:59 Intake Total 240 Balance 240 Intake: Oral 240 Other: # Voids 1 Weight 71.2 kg 72.5 kg 12/05/17 11:00 12/05/17 11:00 EKG Interpretations (text) Initial EKG shows a normal sinus rhythm with T wave inversion noted in the anterior lateral leads. Assessment and Plan Plan: Assessment and plan #1 chest pain, atypical for acute coronary syndrome. Pleuritic in nature. EKG shows normal sinus rhythm with T wave inversion noted in the anterior lateral leads. Troponins 0.07, 0.06, 0.06. #2 paroxysmal atrial fibrillation, status post recent ablation at [facility] approximately 3 days ago #3 history of ASD or with the prior closure a pH of 7 #4 prior pacemaker implantation, Biotronik #5 bipolar and anxiety disorder #6. Xanax overconsumption Plan We will obtain an echocardiogram with Doppler study. Repeat EKG this morning. The patient's abnormality in troponin could be related to his recent ablation procedure. INR subtherapeutic, we'll give the patient a dose of Coumadin. We will also order a sed rate and CRP level. Echo was reviewed by Dr. VC Knutson, no evidence of pericardial effusion. Patient's condition is stable, we recommend he follow-up with his pulmonary function technologist in [place]. We will obtain documents her [facility]. Further recommendations to follow. DNP note has been reviewed, I agree with a documented findings and plan of care. Patient was seen and examined.
[2017-12-06] MEDS ORDERED: PANTOPRAZOLE 40 MG/10 ML VIAL IV SCH (09:00)
[2017-12-06 09:22] LABS: INR 1.3 (<1.2); Prothrombin Time 12.4 sec (9.0-12.0)
--- NOTE | 2017-12-06 10:10 | P.PN ---
Subjective Progress Note Date: 12/06/17 Principal diagnosis: Troponemia Patient was seen and examined. No acute events overnight. Patient more alert this morning. Patient complains of chest pain. Chest pain is left-sided, burning in nature, intermittent every 20 minutes lasting for 5 minutes, aggravated with deep inspiration. No fever or chills. No cough or shortness of breath. Of note, patient reports a chronic left-sided chest and neck pain since getting a pacemaker placed in his 20s. Objective - Vital Signs Vital signs: Vital Signs Temp 97.5 F L 12/06/17 08:00 Pulse 74 12/06/17 08:00 Resp 16 12/06/17 08:00 BP 105/58 12/06/17 08:00 Pulse Ox 97 12/06/17 08:00 Intake & Output 12/05/17 12/06/17 12/06/17 18:59 06:59 18:59 Intake Total 240 Balance 240 Weight 71.2 kg 72.5 kg Intake: Oral 240 Other: # Voids 1 - Exam Genesteral: non toxic, no distress, appears at stated age Derm: warm, dry Head: atraumatic, normocephalic, symmetric Eyes: EOMI, no lid lag, anicteric sclera Mouth: no lip lesion, mucus membranes moist Cardiovascular: S1S2 reg, no murmur, positive posterior tibial pulse bilateral, sternal scar Lungs: CTA bilateral, no rhonchi, no rales , no accessory muscle use Abdominal: soft, nontender to palpation, no guarding, no appreciable organomegaly Ext: no gross muscle atrophy, no edema, no contractures Neuro: CN II-XI grossly intact, no focal neuro deficits Psych: Alert, oriented, appropriate affect TTP of the sternum at the costal cartilage. - Labs CBC & Chem 7: 12/05/17 11:00 12/05/17 11:00 Labs: Abnormal Lab Results - Last 24 Hours (Table) 12/05/17 12/05/17 12/05/17 Range/Units 11:00 11:00 11:00 PT 13.0 H (9.0-12.0) sec INR 1.4 H (<1.2) Chloride 111 H (98-107) mmol/L Troponin I 0.075 H* (0.000-0.034) ng/mL 08/15/18 08/15/18 Range/Units 17:52 23:03 PT (9.0-12.0) sec INR (<1.2) Chloride (98-107) mmol/L Troponin I 0.064 H* 0.063 H* (0.000-0.034) ng/mL Assessment and Plan Assessment: Assessment and Plan 1. Chest pain: TTP on PE and pleuritic likely Costochondritis. Trop 0.075, 0.064 , 0.063, 0.057 with EKG showing NSR. ACS unlikely, elevation likely related to recent ablation. CXR shows cardiomegaly. Pain management with Nordman 10 Q4 PRN ( home medication), Tylenol 650 Q6 PRN, Tramadol 50 Q6 PRN. FU Cardiology 2. Troponemia: Likely related to ablation 3 days ago. Trop 0.075, 0.064, 0.063, 0.057 with EKG showing NSR. Cardiology consulted from the ED. ACS ruled out. Per Cardio, will obtain documents from [facility]. FU Cardiology 3. Cardiomegaly: Seen on CXR. FU Echo, Cardiology 4. Benzo OD: Ativan 2 mg IV Q6 PRN for seizures. Avoid Flumazenil, chronic BZ user. Will resume Xanax 1 mg PO TID for anxiety. 1:1 sitter. FU Psyc 5. A-Fib: Ablation 3 days ago. Continue Metoprolol 25 mg PO BID, Flexainide 50 mg PO BID. Resume Coumadin, 7.5 mg PO today, 5 mg PO QD starting tomorrow. INR 1.3 subtherapeutic but unsure if compliant. Telemetry monitoring. FU daily INR, Cardiology 4. Asthma: Stable. Albuterol neb PRN 5. Bipolar disorder/Anxiety: Continue Depakote 750 mg PO BID, Risperidone 1 mg PO TID. Resumed Xanax 1 mg PO TID (home dose is 2mg). 1:1 sitter for SI. FU Psyc 6. DVT/GI Prophylaxis: Pepcid 20 mg PO BID. SCD boots. Early ambulation. Patient is pending cardiology clearance. Pending psych eval. ACS ruled out. We 'll obtain records from [facility].
--- NOTE | 2017-12-06 11:26 | ECHOF ---
Referral Reason:chest pain MEASUREMENTS -------- HEIGHT: 180.3 cm WEIGHT: 72.1 kg BP: RVIDd: 2.6 cm (< 3.3) IVSd: 1.0 cm (0.6 - 1.1) LVIDd: 5.3 cm (3.9 - 5.3) LVPWd: 1.1 cm (0.6 - 1.1) IVSs: 1.4 cm LVIDs: 3.2 cm LVPWs: 1.3 cm LAESV Index (A-L): 32.34 ml/m Ao Diam: 3.0 cm (2.0 - 3.7) AV Cusp: 2.4 cm (1.5 - 2.6) LA Diam: 3.6 cm (2.7 - 3.8) MV EXCURSION: 32.625 mm (> 18.000) MV EF SLOPE: 221 mm/s (70 - 150) EPSS: 0.4 cm MV E Ethan: 0.84 m/s MV DecT: 193 ms MV A Ethan: 0.31 m/s MV E/A Ratio: 2.73 RAP: 5.00 mmHg RVSP: 17.13 mmHg FINDINGS -------- Sinus rhythm. This was a technically good study. The left ventricular size is normal. There is borderline concentric left ventricular hypertrophy. Overall left ventricular systolic function is low-normal with, an EF between 50 - 55 %. There is p aradoxical/dysynergic septal motion consistent with post-operative status. RV Promident The left atrium is normal in size. The right atrium is normal in size. Aortic valve is trileaflet and is mildly thickened. The mitral valve leaflets are mildly thickened. Mild mitral regurgitation is present. There is mi ld mitral valve prolapse. Mild tricuspid regurgitation present. The right ventricular systolic pressure, as measured by Doppl er, is 17.13mmHg. Pulmonic valve appears structurally normal. The aortic root size is normal. Normal inferior vena cava with normal inspiratory collapse consistent with estimated right atrial pre ssure of 5 mmHg. The pericardium is normal. CONCLUSIONS -------- 1. Sinus rhythm. 2. This was a technically good study. 3. The left ventricular size is normal. 4. There is borderline concentric left ventricular hypertrophy. 5. Overall left ventricular systolic function is low-normal with, an EF between 50 - 55 %. 6. There is paradoxical/dysynergic septal motion consistent with post-operative status. 7. RV Promident 8. The left atrium is normal in size. 9. The right atrium is normal in size. 10. Aortic valve is trileaflet and is mildly thickened. 11. The mitral valve leaflets are mildly thickened. 12. Mild mitral regurgitation is present. 13. There is mild mitral valve prolapse. 14. Mild tricuspid regurgitation present. 15. The right ventricular systolic pressure, as measured by Doppler, is 17.13mmHg. 16. Pulmonic valve appears structurally normal. 17. The aortic root size is normal. 18. Normal inferior vena cava with normal inspiratory collapse consistent with estimated right atrial pressure of 5 mmHg. 19. The pericardium is normal. [employer]DER: Svetlana Dillon RDCS
[2017-12-06 12:24] VITALS: BMI 21.0
[2017-12-06] MEDS: ALPRAZolam 1 MG TAB PO SCH ×2 (15:41→21:12)
--- NOTE | 2017-12-06 16:14 | P.CN ---
Psychiatric Consult - . Consult date: 12/06/17 Consult:: 12/06/17 16:00 Identification: Patient is a 42-year-old male who presented to the emergency room obtunded after an overdose of Xanax Reason for Consult: Overdose History of Present Illness: Patient's chart was reviewed, the patient was seen and interviewed in his room no family members were present. Patient states that he did not take an overdose but was hurting and itching and so took 8 Xanax yesterday, denying that this was a suicide attempt. Patient states that he's been on Xanax for a number of years, and this is verified by looking at the [facility] program where the patient filled Xanax 2 mg tablets #90 on November 09. Patient states he takes 3 of them a day, and states he took 8 the other day because he was hurting and itching. Patient states that he was recently at [facility] he thinks 4 months ago for a suicide attempt when he jumped out in front of a car and was discharged on Zoloft, Depakote and Risperdal and maintained on Xanax. Patient states that he was doing well after that discharge however the Zoloft was discontinued by his outpatient psychiatrist. He states that things were going well until his stomach began hurting he had an increased heart rate and chest pain had a heart catheterization on November 28 and since then continues to report stomach pain, large bruise and itching as well as sores on his arms is what he showed me. Patient states that this is the reason he took the Xanax and it was not because he was feeling suicidal. Patient states that he was diagnosed with a bipolar disorder 5 years ago prior to that he been treated for depression and anger issues. Patient states that he gets depressed and feels suicidal, angry, hopeless, tired and irritable. He states his manic episodes are that he has more energy and is angry. Patient states he has anger issues and has for a long time and gets into both verbal and physical confrontations with people. Patient also reports that he has panic attacks where he gets anxious when he is outside the house. Patient states that the age of 14 he was admitted to [facility] for a suicide attempt when he jumped in front of a car was placed on medications unknown at the time. Patient states he stopped the medications at that time. Patient states that he' s been on medications on and off over the years and was restarted on medications when he was in jail. Patient states he's been on multiple antipsychotics and anti-depressants and states nothing works but when he is currently taking. He states that he has an idiosyncratic reaction to Ativan. Patient states that he is to be taking Risperdal 1 mg 3 times a day, Atarax 25 mg 3 times a day as needed, Depakote 7 or 50 mg twice a day, Xanax 2 mg 3 times a day and he states that on these medications he was doing fine and was not having any difficulties until his physical symptoms of stomach pain, itching, sores and then had a cardiac catheterization. Patient does not endorse a history of psychotic symptoms currently or in the past, no evidence of OCD symptoms. Past Psychiatric History: Patient has been admitted to [facility] and [facility] 4 months ago for suicide attempts. Patient states he was also in [facility] and 2002 for rehab and was started on medication there as well. Please see above for his current psychiatric medications. Past Medical/Surgical History: Patient has a history of atrial fibrillation, hypertension, had a ASD repaired as a child, status post pacemaker placement, status post ablation, status post neck surgery . Patient also states that several months ago he had all his teeth removed and has not had dentures and so has lost weight due to not eating as well. Family History: Patient states that on maternal side of his family that there are many relatives with schizophrenia and bipolar disorder, he denies any alcohol or drug use disorders in the family and states a maternal uncle and a maternal aunt both completed suicide Social History: Patient states he was born and raised in [place] and his parents are both alive and he has 3 siblings. He completed the ninth grade and obtained his GED. 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 Patient states that he had been living in [place] and moved here recently and lives alone in his own home. States he's never been and had 2 children a 26-year-old daughter and a son who is . Patient denies any abuse history. Substance Use History: Patient states that he used alcohol along time ago in his teens, states that since the age of 13 he does use marijuana on a daily basis, he uses cocaine in his 20s, denies any IV heroin, methamphetamine amphetamine, benzodiazepine or opiate misuse. Patient denies any tobacco use at this time. Legal History: Patient states that he was in jail for 9 years, he will not discuss with me what he was in jail for stating it is "none of your business". Mental status: Appearance/Attitude: Patient is lying in a hospital bed, he was scratching his forearms during the interview complaining that he was itchy, made intermittent eye contact and was superficially cooperative Behavior: Patient did not display any psychomotor agitation or retardation Speech/Language: Patient's speech was spontaneous of normal volume and rhythm and he was coherent Thought Process: Patient was goal-directed, at times not giving great detail, when asking the symptoms of his depression he would report all of them and the same with his symptoms of swathi, all of them. Thought Content: Patient denied any auditory or visual hallucinations and no delusions or paranoid ideation were elicited. Patient denied any racing thoughts. Patient stated that he's not been sleeping well and his appetite has been poor lately due to his stomach hurting. Patient states been feeling depressed and anxious and physically ill. Suicidal/Homicidal Ideation: Patient denies any current suicidal or homicidal ideation Sensorium/Cognition: Patient is alert and oriented to person, place, and time and his recent and remote memory are grossly intact Mood/Affect: Patient's mood is irritable and his affect is blunted Insight/Judgment: Patient's insight and judgment are fair Assessment: Patient has been treated for a number of years by Dr. Tracey, he states he's been seeing him for 5 years and states he's been maintained on Depakote, Risperdal and Xanax with good results. I looked on [facility] the patient filled a [place] 10 mg prescription for #150 on November 27, Xanax 2 mg #90 on November 09 the patient has been receiving several prescriptions for an extended period of time. Patient is currently not expressing any psychotic symptoms, there is no evidence of swathi, the patient is irritable and easily angered refusing to discuss his jail history. Patient does report feeling physically ill, depressed and anxious and states that he took Xanax because he wasn't feeling well and itching not in an overdose attempt. Patient states that he had an anger issue when he was younger and continues to have that, it is difficult to state whether he did endorse depressive or manic symptoms as when asked to describe his symptoms he said " all of them". Diagnosis: Unspecified mood disorder; opiate and benzodiazepine use disorder Plan: Patient is not currently suicidal and I will discontinue his one-to-one suicide precautions. Patient also does not require an inpatient psychiatric admission at this time. Patient has been on Xanax at 2 mg 3 times a day for an extended period of time, a number of years I would not reduce his dose further than Xanax 1 mg 3 times a day which is a 50% reduction in his prior dosage to prevent withdrawal, withdrawal seizures and delirium. Patient has no interest in decreasing his Xanax dose nor does he have any interest in decreasing his [place] dose. The risks of using benzodiazepines and opiates together were discussed with the patient who stated that he wasn't interested in changing his medications and never had any difficulties. I would continue the patient on his Risperdal at the current dose and the Depakote at his current dose. Patient will follow-up with his prior psychiatrist Dr. Tracey in [place]. I will sign off the case if there are any further questions or concerns please don't hesitate to contact me
[2017-12-06] MEDS ORDERED: WARFARIN 7.5 MG TAB PO ONE (18:00)
[2017-12-07 00:40] VITALS: RESP 16
[2017-12-07] MEDS: SODIUM CHLORIDE 0.9% 1,000 ML IV SCH ×2 (00:40→11:17)
[2017-12-07 06:46] LABS: INR 1.2 (<1.2); Prothrombin Time 11.6 sec (9.0-12.0)
[2017-12-07 07:11] LABS: Creatine Kinase MB 0.6 ng/mL (0.0-2.4)
[2017-12-07] MEDS ORDERED: PANTOPRAZOLE 40 MG TABLET PO SCH (07:30)
[2017-12-07 08:09] LABS: Troponin I 0.044 ng/mL (0.000-0.034)
[2017-12-07 08:19] VITALS: TEMP 97.4
[2017-12-07] MEDS: FLECAINIDE 50 MG TAB PO SCH (08:24)
[2017-12-07] MEDS: DIVALPROEX ER 500 MG TAB.ER.24H PO SCH (08:24)
[2017-12-07] MEDS: diphenhydrAMINE 50 MG/ML 1 ML VIAL IVP PRN (08:24)
[2017-12-07] MEDS: HYDROcodone/APAP 10-325MG 1 EACH TAB PO PRN (08:24)
[2017-12-07] MEDS: ALPRAZolam 1 MG TAB PO SCH (08:24)
[2017-12-07] MEDS: risperiDONE 1 MG TAB PO SCH (08:24)
[2017-12-07] MEDS: DIVALPROEX ER 250 MG TAB.ER.24H PO SCH (08:24)
--- NOTE | 2017-12-07 09:42 | P.PN ---
Subjective Progress Note Date: 12/07/17 Principal diagnosis: Chest pain Patient was seen and examined. No acute events overnight. Patient continues to complain of chest pain, but greatly improved. Pain continues to be pleuritic but is only 3 out of 10 today. Of note, patient has had chronic left- sided chest pain radiating to the left neck since implantation of a pacemaker when he was a child. Patient states that he has gone for revision surgery, with deeper insertion of pacemaker but continues to experience his pain. This pain is not new. Patient's current complaint is chest pain started after his DANIE. Patient reports having rib pain and midsternal burning chest pain that is aggravated with inspiration and with palpation of his costal cartilage. He has had this pain since undergoing the DANIE. He denies any dysphagia or odynophagia. Objective - Vital Signs Vital signs: Vital Signs Temp 97.4 F L 12/07/17 08:00 Pulse 67 12/07/17 08:00 Resp 16 12/07/17 08:00 BP 90/50 12/07/17 08:00 Pulse Ox 97 12/07/17 08:00 Intake & Output 12/06/17 12/07/17 12/07/17 18:59 06:59 18:59 Intake Total 838 120 Balance 838 120 Weight 72.5 kg 72.4 kg Intake: Oral 838 120 Other: # Voids 2 1 - Exam General: non toxic, no distress, appears at stated age Derm: warm, dry Head: atraumatic, normocephalic, symmetric Eyes: EOMI, no lid lag, anicteric sclera Mouth: no lip lesion, mucus membranes moist Cardiovascular: S1S2 reg, no murmur, positive posterior tibial pulse bilateral, sternal scar Lungs: CTA bilateral, no rhonchi, no rales , no accessory muscle use Abdominal: soft, nontender to palpation, no guarding, no appreciable organomegaly Ext: no gross muscle atrophy, no edema, no contractures Neuro: CN II-XI grossly intact, no focal neuro deficits Psych: Alert, oriented, appropriate affect Tenderness to palpation of the sternum at the costal cartilage bilaterally extending to the floating ribs. - Labs CBC & Chem 7: 12/05/17 11:00 12/05/17 11:00 Labs: Abnormal Lab Results - Last 24 Hours (Table) 12/06/17 12/06/1712/07/18 Range/Units 08:47 08:47 06:09 PT 12.4 H (9.0-12.0) sec INR 1.3 H 1.2 H (<1.2) Total Creatine Kinase (55-170) U/L Troponin I 0.057 H* (0.000-0.034) ng/mL 12/07/17 Range/Units 06:09 PT (9.0-12.0) sec INR (<1.2) Total Creatine Kinase 187 H (55-170) U/L Troponin I 0.044 H* (0.000-0.034) ng/mL Assessment and Plan Assessment: Assessment and Plan 1. Chest pain: TTP on PE and pleuritic likely Costochondritis or Steven. Patient reports continued pain since his DANIE. Trop 0.075, 0.064, 0.063, 0.057, 0.044 with EKG showing NSR. ACS ruled out. CXR shows cardiomegaly. We will try Toradol injection. FU Cardiology 2. Troponemia: Likely related to ablation 3 days ago. Trop 0.075, 0.064, 0.063, 0.057, 0.044 with EKG showing NSR. Cardiology consulted from the ED. ACS ruled out. [facility] document show the patient underwent DANIE and ablation for A. fib under Dr. Benjamin Miller from 11/29/2017. We'll attempt to Dr. Miller to determine whether patient has undergone a recent ischemic workup. FU Cardiology 3. Cardiomegaly: Seen on CXR. Echocardiogram shows EF of 50-55% with paradoxical septal motion consistent with postoperative status. FU Cardiology 4. Benzo OD: Ativan 2 mg IV Q6 PRN for seizures. Avoid Flumazenil, chronic BZ user. Will resume Xanax 1 mg PO TID for anxiety. Patient is psych cleared. 5. A-Fib: Ablation 11/28 with DANIE. Continue Metoprolol 25 mg PO BID, Flexainide 50 mg PO BID. Resume Coumadin 5 mg PO QD. INR 1.2 subtherapeutic but unsure if compliant. 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 Telemetry monitoring. 6. Asthma: Stable. Albuterol neb PRN 7. Bipolar disorder/Anxiety: Continue Depakote 750 mg PO BID, Risperidone 1 mg PO TID. Resumed Xanax 1 mg PO TID (home dose is 2mg). 8. DVT/GI Prophylaxis: Pepcid 20 mg PO BID. SCD boots. Early ambulation. ACS has been ruled out. Troponins are trending down likely thought to be secondary to his recent ablation. He has been cleared by cardiology and psychiatry. He is likely to be discharged today, with close follow-up with his PCP and cardiology.
[2017-12-07 11:16] VITALS: BP 102/51; PULSE 74
[2017-12-07] MEDS: METOPROLOL TARTRATE 25 MG TAB PO SCH (11:17)
[2017-12-07] MEDS ORDERED: diphenhydrAMINE 50 MG/ML 1 ML VIAL IVP STA (14:10)
--- NOTE | 2017-12-07 14:14 | P.DS ---
Providers Date of admission: 12/05/17 14:37 Expected date of discharge: 12/07/17 Attending physician: Kumar Hammond MD Consults: 12/05/17 14:47 Consult Physician Stat Consulting Provider: Fay Vásquez Consult Reason/Comments: Suicidal ideation, Drug OD Do you want consulting provider notified?: Yes Consult Physician Stat Consulting Provider: Corazon Parekh Consult Reason/Comments: Elevated trop, Recent ablation Do you want consulting provider notified?: Yes Primary care physician: Byron Chua - Ish[place]el Diagnosis(es) (1) Costochondritis Current Visit: Yes Status: Acute (2) Cardiomegaly Current Visit: Yes Status: Acute (3) Benzodiazepine abuse Current Visit: Yes Status: Acute (4) A-fib Current Visit: Yes Status: Acute (5) Elevated troponin Current Visit: Yes Status: Acute Hospital Course: H&P was mostly obtained from the ED note as patient was obtunded and difficult to arouse, unwilling to answer questions. 42-year-old male with past medical history of atrial fibrillation and bipolar disorder presents the ED after overdosing on Xanax. Per ED note, patient took 82 mg Xanax pills this morning and 62 mg Xanax pills last night. EMS was called this patient was lethargic and drowsy. Of note patient underwent a cardiac ablation at [facility] 3 days ago. Patient currently denies any symptoms. Patient denies suicidal ideation, homicidal ideation, auditory and visual hallucinations. He denies headache, lower extremity edema, nausea, vomiting, fever, cough, chest pain, shortness of breath, palpitations, changes in urination or bowel habits. In the ED is found to have an INR 1.4, troponin of 0.075, EKG showing normal sinus rhythm with a rightward axis deviation and ST and T-wave abnormalities, cardiomegaly on chest x-ray. He is admitted to the medical floor for elevated troponins, pending transfer to psych. His chest pain was thought to be atypical. His chest wall was tender to palpation at the coastal cartilage bilaterally. His chest pain was also pleuritic in nature. Patient also reported that his pain had continued since his DANIE on November 28. His troponins were trended, troponin of 0.075, 0.064, 0.063, 0.057, 0.044. EKG showing normal sinus rhythm. Chest x-ray showed cardiomegaly. Cardiology was consulted for the elevated troponins. Echocardiogram was ordered which showed an ejection fraction of 50-55% with paradoxical septal motion consistent with postoperative status. They recommended that the patient follow-up with his pole tester Dr. Miller. Patient was evaluated by psychiatry for benzodiazepine overdose. Patient reported taking these medications for pain. He was cleared from a psychiatric standpoint. His home medications of metoprolol flex and night and Coumadin was resumed for his atrial fibrillation. His home medication of Depakote, risperidone and Xanax was resumed for his bipolar disorder and anxiety. Patient was advised to follow-up with his primary care provider within 1-2 days of discharge. Patient was advised to follow-up with his pole tester Dr. Miller within 2- 3 days of discharge. Home care was consulted for INR checks. This complex discharge took greater than 30 minutes. Pertinent Studies: Echo Procedures: None Patient Condition at Discharge: Stable Plan - Discharge Summary Discharge Rx Participant: Yes New Discharge Prescriptions: New Ketorolac [Toradol] 10 mg PO Q6HR #20 tab Warfarin [Coumadin] 5 mg PO DAILY@1800 #20 tab Discontinued Doxycycline Monohydrate [Monodox] 100 mg PO BID hydrOXYzine HCL [Atarax] 25 mg PO TID PRN PRN Reason: Anxiety No Action HYDROcodone/APAP 10-325MG [[place] 10-325] 1 tab PO Q4HR PRN PRN Reason: Pain Divalproex Sodium [Depakote ER] 250 mg PO BID Flecainide Acetate 50 mg PO BID Albuterol Inhaler [Ventolin Hfa Inhaler] 1 - 2 puff INHALATION RT-QID PRN PRN Reason: Shortness Of Breath risperiDONE [RisperDAL] 1 mg PO TID Metoprolol Tartrate [Lopressor] 25 mg PO BID Warfarin [Coumadin] 5 mg PO DIRECTED Famotidine [Pepcid] 20 mg PO BID Divalproex ER [Depakote ER] 500 mg PO BID Albuterol Nebulized [Ventolin Nebulized] 2.5 mg INHALATION RT-QID PRN PRN Reason: Shortness Of Breath ALPRAZolam [Xanax] 2 mg PO TID Discharge Medication List HYDROcodone/APAP 10-325MG [[place] 10-325] 1 tab PO Q4HR PRN 11/25/15 [History] Divalproex Sodium [Depakote ER] 250 mg PO BID 06/13/16 [History] Flecainide Acetate 50 mg PO BID 06/13/16 [History] Albuterol Inhaler [Ventolin Hfa Inhaler] 1 - 2 puff INHALATION RT-QID PRN [History] risperiDONE [RisperDAL] 1 mg PO TID 05/28/17 [History] ALPRAZolam [Xanax] 2 mg PO TID 12/05/17 [History] Albuterol Nebulized [Ventolin Nebulized] 2.5 mg INHALATION RT-QID PRN 12/05/17 [ History] Divalproex ER [Depakote ER] 500 mg PO BID 12/05/17 [History] Famotidine [Pepcid] 20 mg PO BID 12/05/17 [History] Metoprolol Tartrate [Lopressor] 25 mg PO BID 12/05/17 [History] Warfarin [Coumadin] 5 mg PO DIRECTED 12/05/17 [History] Ketorolac [Toradol] 10 mg PO Q6HR #20 tab 12/07/17 [Rx] Warfarin [Coumadin] 5 mg PO DAILY@1800 #20 tab 12/07/17 [Rx] Follow up Appointment(s)/Referral(s): Lowell Childs MD [STAFF PHYSICIAN] - 01/25/18 3:30 pm (Please keep previous appointment with Dr. Childs.) [facility], [NON-STAFF] - Byron Chua MD [Primary Care Provider] - 1-2 days Patient Instructions/Handouts: Pain Management After Surgery (DC), Benzodiazepine Overdose (DC) Activity/Diet/Wound Care/Special Instructions: Diet: Regular Please follow-up with her primary care provider within 1-2 days of discharge. Please take your Coumadin as advised. Please follow-up with your PCP for regular INR checks. Home health has been consulted and will be in touch with you. Please follow-up with your pole tester Dr. Miller within 2-3 days of discharge. Your appointment is scheduled for 12/25/[address] Miller's staff will call you to arrange for a closer appointment. Please take all medications as advised. Discharge Disposition: HOME SELF-CARE
--- NOTE | 2017-12-07 15:42 | CDI ---
Last Revision, March 2017 Documentation Clarification Form Date: 12/07/2017 3:31:42 PM From: Rebecca ManciaALEAH, CCDS Admit Date: 12/05/2017 2:37:00 PM Patient Name: Harry Pollack Visit Number: [id number] Discharge Date: ATTENTION: The Clinical Documentation Specialists (CDI) and [facility] Coding Staff appreciate your assistance in clarifying documentation. Please respond to the clarification below the line at the bottom and electronically sign. The CDI & [facility] Coding staff will review the response and follow-up if needed. Please note: Queries are made part of the Legal Health Record. If you have any questions, please contact the author of this message via ITS. Ying Wong MD: Asthma is documented in the H/P and subsequent progress notes as Asthma, stable. Patient history/risk factors: Atrial fibrillation, recent ablation, has pacemaker. Clinical Indicators: Presented with possible Xanax overdose, lethargic & drowsy. Radiology: CXR: Cardiomegaly. Vital Signs: T 97.1, P 83, R 18, BP 111/58, PO 96 RA Home Rx: Coumadin, Lopressor, [place], Flecainide, Depakote, Albuterol INH, Xanax , Toradol Treatment: IV fl bolus, IV Ativan, IM Geodon, IV Narcan, IV Zofran, Albuterol INH, In your professional opinion, can you please further specify the severity & type of asthma if known? Severity: Mild intermittent Mild persistent Moderate persistent Severe persistent Other, please specify Unable to determine Form or Type: Cough variant Childhood Exercise induced bronchospasm Extrinsic allergic Idiosyncratic Intrinsic nonallergic Late-onset Mixed Other, please specify Unable to determine Please continue to document in your progress notes and discharge summary in order to capture severity of illness and risk of mortality. Include clinical findings that support your diagnosis. Hi. I am unable to specify. He was not admitted for asthma exacerbation, I did not ask. Sachin YOUNG
[2017-12-07] MEDS ORDERED: WARFARIN 5 MG TAB PO SCH (18:00)
== END 2017-12-07 15:47 | disposition home or self-care (01) | DRG 918 ==
LOC: EC 09:31 → 6SEL 14:37
PROVIDERS: ADMIT Hospitalist; ATTEND Hospitalist
DX: T42.4X2A Poisoning by benzodiazepines, intentional self-harm, initial encounter (principal); R45.851 Suicidal ideations; Y92.9 Unspecified place or not applicable; F31.9 Bipolar disorder, unspecified; F41.0 Panic disorder [episodic paroxysmal anxiety]; G89.29 Other chronic pain; I48.0 Paroxysmal atrial fibrillation; I51.7 Cardiomegaly; J45.909 Unspecified asthma, uncomplicated; M94.0 Chondrocostal junction syndrome [Tietze]; R79.1 Abnormal coagulation profile; F13.10 Sedative, hypnotic or anxiolytic abuse, uncomplicated; M54.2 Cervicalgia; R77.9 Abnormality of plasma protein, unspecified; Z78.1 Physical restraint status; Z79.01 Long term (current) use of anticoagulants; Z79.899 Other long term (current) drug therapy; Z95.0 Presence of cardiac pacemaker; Z88.6 Allergy status to analgesic agent; Z88.1 Allergy status to other antibiotic agents; Z88.5 Allergy status to narcotic agent; Z88.2 Allergy status to sulfonamides
CPT/HCPCS: 36415; 71045; 80053; 80320; 82075; 82550; 82553; 83520; 84484; 85025; 85610; 85652; 86140; 93005; 93306; 96361; 96372; 96374; 99285

== ENCOUNTER 2019-06-24 07:44 | Day surgery (SDC) | payer OTHER ==
[2019-06-20 09:48] VITALS: BMI 26.1
[~2019-06-24 07:44] MED LIST changes: -DEXAMETHASONE SOD PHOSPHATE 10 MG/ML 1 ML VIAL IV ONE; -HYDROcodone/APAP 10-325MG 1 EACH TAB ONE; +LIDOCAINE 1% (10MG/ML) FOR IV START INTRADERMA PRN; -ONDANSETRON 4 MG/2 ML VIAL IVP ONE; -SODIUM CHLORIDE 0.9% 1,000 ML IV SCH; -ceFAZolin 2,000 MG in DEXTROSE/WATER 1 50ML.BAG IVPB STA; -ceFAZolin IN SWFI 2 GM/20 ML SYRINGE IVP STA; -fentaNYL (PF) 50 MCG/ML 2 ML AMP IV PRN
[2019-06-24 08:09] VITALS: TEMP 97.2
[2019-06-24] MEDS ORDERED: LIDOCAINE 1% INJ 10MG/ML (20 ML MDV) ONE (08:19)
[2019-06-24] MEDS ORDERED: PROPOFOL 10 MG/ML 20 ML VIAL IV ONE (08:19)
--- NOTE | 2019-06-24 09:05 | P.PCN ---
Date of Procedure: 06/24/19 Description of Procedure: Brief history: Patient is a pleasant scheduled for an elective upper endoscopy as well as colonoscopy as a part of evaluation of iron deficiency anemia. He denies any change in bowel habits, blood per rectum or abdominal pain. No prior history of anemia. Procedure performed: Esophagogastroduodenoscopy with biopsy Colonoscopy Estimated blood loss: Minimal. Preoperative diagnosis: Iron deficiency anemia, no prior colonoscopy Anesthesia: [facility] Procedure: After informed consent was obtained from the patient was brought into the endoscopy unit and IV sedation was administered by anesthesia under continuous monitoring. Initially upper endoscopy was done. The Olympus GF 190 video endoscope was inserted into the mouth and esophagus intubated without any difficulty and was gradually advanced into the stomach and duodenum and carefully examined. The bulb and second part of the duodenum appeared normal, with biopsies taken to rule out celiac sprue. The scope was then withdrawn into the stomach adequately insufflated with air and upon careful examination the antrum and body, cardia and fundus appeared normal, with biopsies taken to rule out Helicobacter pylori. The scope was then withdrawn into the esophagus. The GE junction was located at 43 cm to the incisors. It appeared regular with no erythema erosions or ulcerations. Rest of the esophagus appeared normal. Patient tolerated the procedure well. At this time the patient continued to remain sedation. Initial digital rectal examination was normal, except for nonthrombosed external hemorrhoids. Olympus CF 190 video colonoscope was then inserted into the rectum and gradually advanced to the cecum without any difficulty. Careful examination was performed as the scope was gradually being withdrawn. The prep was excellent. The cecum, ascending colon, transverse colon, descending colon, sigmoid colon and rectum appeared normal. Retroflexion was performed in the rectum and no lesions were noted, except for moderate internal hemorrhoids. Patient tolerated the procedure well. Impression: 1. Normal upper endoscopy with no evidence of bleeding or source of GI bleed. Biopsies taken of the duodenum to rule out celiac sprue and antrum body to rule out Helicobacter pylori. 2. Nonthrombosed external hemorrhoids and moderate internal hemorrhoids. Otherwise normal appearing colonoscopy from rectum to cecum. Recommendations: Findings of this examination were discussed with the patient as well as his father. Okay to resume diet. Okay to resume medications. Continue to monitor hemoglobin and hematocrit and supplement as needed. If iron deficiency anemia persist can consider video capsule endoscopy for completion of workup.
[2019-06-24 09:07] VITALS: RESP 18
[2019-06-24 09:24] VITALS: BP 115/68; PULSE 64
== END 2019-06-24 09:33 | disposition home or self-care (01) ==
LOC: ORWHC2ENDO 07:44
PROVIDERS: ATTEND Internal Medicine
DX: K29.50 Unspecified chronic gastritis without bleeding (principal); D50.9 Iron deficiency anemia, unspecified; K64.4 Residual hemorrhoidal skin tags; K64.8 Other hemorrhoids; I48.91 Unspecified atrial fibrillation; J45.909 Unspecified asthma, uncomplicated; F31.9 Bipolar disorder, unspecified; Z87.891 Personal history of nicotine dependence; Z88.2 Allergy status to sulfonamides; Z88.8 Allergy status to other drugs, medicaments and biological substances; Z88.5 Allergy status to narcotic agent; Z88.1 Allergy status to other antibiotic agents; Z88.6 Allergy status to analgesic agent; Z79.891 Long term (current) use of opiate analgesic; Z79.899 Other long term (current) drug therapy; Z98.1 Arthrodesis status; Z95.0 Presence of cardiac pacemaker
CPT/HCPCS: 88305; 45378; 43239; J2001; J2704

== ENCOUNTER 2020-01-17 08:55 | Inpatient (IN) | payer OTHER ==
[2020-01-17] MEDS ORDERED: HYDROmorphone 1 MG/ML 1 ML SYRINGE IVP STA (09:09)
[2020-01-17] MEDS ORDERED: diphenhydrAMINE 50 MG/ML 1 ML VIAL IVP STA ×2 (09:09→11:33)
--- NOTE | 2020-01-17 09:17 | ED ---
Back Pain HPI - General Chief Complaint: Back Pain/Injury Stated Complaint: Back & leg pain Time Seen by Provider: 01/17/20 09:02 Source: patient, RN notes reviewed Limitations: no limitations - History of Present Illness Initial Comments: This a 44-year-old male presents emergency Department with chief complaint of low back pain. Patient states started a few weeks ago when he tried to step up on his tailgate. He states he injured his back and did follow-up with his PCP Dr. Chua who gave her muscle relaxers, steroids. Patient states that he finished a course and he states he also takes [place] secondary to chronic pain issues from a pacemaker. Patient states that he reinjured stepping into a vehicle 3 days ago. He denies any bowel, bladder incontinence or retention states he has some paresthesias of his left leg patient denies any saddle anesthesias. Patient states that standing relieves his symptoms states laying or any bending twisting makes his pain much worse. He has no complaints of abdominal pain. Patient states she is scheduled for CT in 2 days. Patient states he cannot tolerate the pain anymore. - Related Data Home Medications Medication Instructions Recorded Confirmed HYDROcodone/APAP 10-325MG [[place] 1 tab PO BID 11/25/15 06/20/19 10-325] Flecainide Acetate 50 mg PO BID 06/13/16 06/20/19 Albuterol Inhaler (Mhu) [Ventolin 1 - 2 puff INHALATION RT-QID PRN 11/23/16 06/20/19 Hfa Inhaler (Mhu)] risperiDONE [RisperDAL] 0.5 mg PO BID 05/28/17 06/20/19 Albuterol Nebulized [Ventolin 2.5 mg INHALATION RT-QID PRN 12/05/17 06/20/19 Nebulized] Divalproex ER [Depakote ER] 500 mg PO QAM 12/05/17 06/20/19 Famotidine [Pepcid] 20 mg PO BID 12/05/17 06/20/19 Metoprolol Tartrate [Lopressor] 25 mg PO BID 12/05/17 06/20/19 Divalproex Sodium [Depakote] 1,000 mg PO HS 06/20/19 06/20/19 Doxycycline [Vibramycin] 100 mg PO BID 06/20/19 06/20/19 hydrOXYzine HCL [Atarax] 50 mg PO TID 06/20/19 06/20/19 Allergies Allergy/AdvReac Type Severity Reaction Status Date / Time sulfamethoxazole Allergy Unknown Rash/Hives/ Verified 01/17/20 08:57 [From Bactrim] Itching trimethoprim [From Bactrim] Allergy Unknown Rash/Hives/ Verified 01/17/20 08:57 Itching daptomycin Allergy Rash/Hives/ Verified 01/17/20 08:57 Itching hydromorphone HCl Allergy Rash/Hives/ Verified 01/17/20 08:57 [From Dilaudid] Itching lorazepam [From Ativan] Allergy Unknown Verified 01/17/20 08:57 vancomycin Allergy Rash/Hives/ Verified 01/17/20 08:57 Itching ibuprofen [From Motrin] AdvReac Nausea & Verified 01/17/20 08:57 Vomiting Review of Systems ROS Statement: Those systems with pertinent positive or pertinent negative responses have been documented in the HPI. ROS Other: All systems not noted in ROS Statement are negative. Past Medical History Past Medical History: Atrial Fibrillation, GERD/Reflux, Musculoskeletal Dis order, Skin Disorder Additional Past Medical History / Comment(s): PACEMAKER @ AGE 24, ACNE, anemia currently, sometimes oxygen levels drop so uses nebulizer/inhaler for prn History of Any Multi-Drug Resistant Organisms: MRSA Date of last positivie culture/infection: 05/25/15 MDRO Source:: Left Wrist Past Surgical History: Cardiac Ablation, Heart Catheterization, Orthopedic Surgery, Pacemaker Additional Past Surgical History / Comment(s): ASD REPAIR TO REPAIR HOLE BETWEEN 2 UPPER CHAMBERS AT AGE 5., PACEMAKER INSERTED SINCE AGE 24, D/T BRADYCARDIA, AND REPLACED X1. Neck surgery - Fall 2016 (Dr. Horowitz) Past Anesthesia/Blood Transfusion Reactions: No Reported Reaction Additional Past Anesthesia/Blood Transfusion Reaction / Comment(s): problem with having face covered-panic attacks Type of Cardiac Device: Permanent Pacemaker Device Placement Date:: 2010 BIOTRONIC Past Psychological History: Anxiety, Bipolar, Depression, Panic Disorder Smoking Status: Former smoker Past Alcohol Use History: None Reported Past Drug Use History: Cocaine - Past Family History Mother Family Medical History: No Reported History Additional Family Medical History / Comment(s): . General Exam Limitations: no limitations General appearance: alert, in no apparent distress Head exam: Present: atraumatic, normocephalic, normal inspection Eye exam: Present: normal appearance, PERRL, EOMI. Absent: scleral icterus, conjunctival injection, periorbital swelling Respiratory exam: Present: normal lung sounds bilaterally. Absent: respiratory distress, wheezes, rales, rhonchi, stridor Cardiovascular Exam: Present: regular rate, normal rhythm, normal heart sounds. Absent: systolic murmur, diastolic murmur, rubs, gallop, clicks GI/Abdominal exam: Present: soft, normal bowel sounds. Absent: distended, tenderness, guarding, rebound, rigid Extremities exam: Present: other (Lower extremity pulses equal bilaterally, equal strength equal color equal warmth) Back exam: Present: tenderness, muscle spasm (Severe muscle spasms of the paraspinal), paraspinal tenderness. Absent: full ROM, vertebral tenderness Neurological exam: Present: alert, oriented X3, reflexes normal. Absent: motor sensory deficit Skin exam: Present: warm, dry, intact, normal color. Absent: rash Course Vital Signs 01/17/20 01/17/20 08:57 10:22 Temperature 97.9 F Pulse Rate 93 79 Respiratory 18 17 Rate Blood Pressure 122/85 135/98 O2 Sat by Pulse 96 96 Oximetry Medical Decision Making - Medical Decision Making CT was reviewed there is sharp changes, disc bulging, patient has no red flag s ymptoms. Patient's had intractable pain. Discuss case with Dr. Chapman with some physician covering for Dr. Monroe. Patient will be admitted for pain management and further evaluation. - Lab Data Result diagrams: 01/17/20 11:36 01/17/20 11:36 Lab Results 01/17/20 01/17/20 Range/Units 11:36 11:36 WBC 6.2 (3.8-10.6) k/uL RBC 5.26 (4.30-5.90) m/uL Hgb 15.0 (13.0-17.5) gm/dL Hct 46.4 (39.0-53.0) % MCV 88.3 (80.0-100.0) fL MCH 28.6 (25.0-35.0) pg MCHC 32.3 (31.0-37.0) g/dL RDW 12.8 (11.5-15.5) % Plt Count 260 (150-450) k/uL Neutrophils % 63 % Lymphocytes % 24 % Monocytes % 8 % Eosinophils % 2 % Basophils % 1 % Neutrophils # 3.9 (1.3-7.7) k/uL Lymphocytes # 1.5 (1.0-4.8) k/uL Monocytes # 0.5 (0-1.0) k/uL Eosinophils # 0.1 (0-0.7) k/uL Basophils # 0.0 (0-0.2) k/uL Sodium 138 (137-145) mmol/L Potassium 4.5 (3.5-5.1) mmol/L Chloride 104 (98-107) mmol/L Carbon Dioxide 24 (22-30) mmol/L Anion Gap 10 mmol/L BUN 11 (9-20) mg/dL Creatinine 0.95 (0.66-1.25) mg/dL Est GFR (CKD-EPI)AfAm >90 (>60 ml/min/1.73 sqM) Est GFR (CKD-EPI)NonAf >90 (>60 ml/min/1.73 sqM) Glucose 101 H (74-99) mg/dL Calcium 9.9 (8.4-10.2) mg/dL Magnesium 2.0 (1.6-2.3) mg/dL Total Bilirubin 0.6 (0.2-1.3) mg/dL AST 23 (17-59) U/L ALT 22 (4-49) U/L Alkaline Phosphatase 59 (38-126) U/L Total Protein 7.6 (6.3-8.2) g/dL Albumin 5.1 H (3.5-5.0) g/dL Disposition Clinical Impression: Intractable back pain, Lumbar radiculopathy, acute Disposition: ADMITTED IP TO THIS HOSP Condition: Fair Referrals: Byron Chua MD [Primary Care Provider] - 1-2 days
[2020-01-17] MEDS ORDERED: DIAZEPAM 5 MG/ML 2 ML INJ IVP STA (10:01)
--- NOTE | 2020-01-17 10:18 | CT ---
EXAMINATION TYPE: CT lumbar spine wo con DATE OF EXAM: 01/17/2020 10:06 AM COMPARISON: None. HISTORY: Back and leg pain for [address] DLP: 660.8 mGycm Automated exposure control for dose reduction was used. Unenhanced CT of the lumbar spine was performed. Bone and soft tissue window settings are submitted as well as coronal and sagittal reconstructions. There are 5 lumbar-type vertebra identified. There is subtle grade 1 anterolisthesis of L4 on L5. Juarez ateral pars defect L4 level are noted. Mild disc space narrowing posterior right L4-L5 level. Mild di sc space narrowing posterior L5-S1 level. Vertebral body heights maintained. No acute fracture or dis location is seen. Axial images show the T12-L1, L1-L2, and L2-L3 levels also appear within normal limits. Axial images at L3-L4 level show mild/moderate facet degenerative changes bilaterally mildly effacing posterior lateral thecal sac. Bilateral neural foramina are patent. Axial images at the L4-L5 level shows spondylolisthesis and moderate broad-based posterior disc protr usion. There is mild facet degenerative change bilaterally. There is mild effacement of the anterior thecal sac. There is moderate right and mild left-sided inferior neural foraminal narrowing. Axial images at the L5-S1 levels show mild to moderate facet arthropathy bilaterally. Spinal canal is preserved. Bilateral neural foramina show mild/moderate right greater than left neural foraminal ian rowing due to marginal spurring. No suspicious incidental finding in the visualized abdomen and upper pelvis. IMPRESSION: Bilateral pars defect L4 level with subtle spondylolisthesis L4 on L5. Multilevel degener ative changes present mid to lower lumbar spine greatest at L4-L5 level as detailed above. No acute f indings evident.
[2020-01-17] MEDS ORDERED: HYDROmorphone 0.5 MG/0.5 ML SYRINGE IVP STA (10:41)
[2020-01-17] MEDS ORDERED: LIDOCAINE 5% PATCH TOPICAL STA (10:41)
[2020-01-17] MEDS ORDERED: ORPHENADRINE 30 MG/ML 2 ML VIAL IVP STA (11:33)
[2020-01-17 12:06] LABS: Basophils % (A) 1 %; Eosinophils # (A) 0.1 k/uL (0-0.7); Eosinophils % (A) 2 %; HCT 46.4 % (39.0-53.0); Lymphocytes # (A) 1.5 k/uL (1.0-4.8); Lymphocytes % (A) 24 %; MCH 28.6 pg (25.0-35.0); MCHC 32.3 g/dL (31.0-37.0); MCV 88.3 fL (80.0-100.0); Mean Platelet Volume 7.1; Monocytes # (A) 0.5 k/uL (0-1.0); Monocytes % (A) 8 %; Neutrophils # (A) 3.9 k/uL (1.3-7.7); Neutrophils % (A) 63 %; Platelet Count 260 k/uL (150-450); RBC 5.26 m/uL (4.30-5.90); RDW 12.8 % (11.5-15.5); WBC 6.2 k/uL (3.8-10.6)
[2020-01-17 12:17] LABS: ALT 22 U/L (4-49); AST 23 U/L (17-59); African American GFR (CKD) >90 (>60 ml/min/1.73 sqM); Albumin 5.1 g/dL (3.5-5.0); Alkaline Phosphatase 59 U/L (38-126); Anion Gap 10 mmol/L; Blood Urea Nitrogen 11 mg/dL (9-20); Calcium 9.9 mg/dL (8.4-10.2); Carbon Dioxide 24 mmol/L (22-30); Chloride 104 mmol/L (98-107); Glucose 101 mg/dL (74-99); Non-African American GFR(CKD) >90 (>60 ml/min/1.73 sqM); Potassium 4.5 mmol/L (3.5-5.1); Sodium 138 mmol/L (137-145); Total Bilirubin 0.6 mg/dL (0.2-1.3); Total Protein 7.6 g/dL (6.3-8.2)
[2020-01-17] MEDS ORDERED: methylPREDNISolone SOD SUCCI 125 MG/2 ML VIAL IV STA (12:39)
[2020-01-17] MEDS ORDERED: HYDROmorphone 1 MG/ML 1 ML SYRINGE IVP PRN (12:41)
[2020-01-17] MEDS ORDERED: oxyCODONE-APAP 5-325MG 1 EACH TAB PO PRN (12:41)
[2020-01-17] MEDS ORDERED: ONDANSETRON 4 MG/2 ML VIAL IVP PRN (12:41)
[2020-01-17] MEDS ORDERED: NALOXONE 0.4 MG/ML 1 ML VIAL IV PRN (12:41)
[2020-01-17] MEDS ORDERED: diphenhydrAMINE 50 MG/ML 1 ML VIAL IVP PRN (12:42)
[2020-01-17] MEDS ORDERED: DICLOFENAC SODIUM GEL 100 GM TUBE TOPICAL PRN (14:48)
[2020-01-17] MEDS ORDERED: ALBUTEROL NEBULIZED 2.5 MG/3 ML INHALATION PRN (14:48)
[2020-01-17] MEDS: diazePAM 2 MG TAB PO PRN ×2 (14:50→20:33)
[2020-01-17] MEDS: oxyCODONE-APAP 5-325MG 1 EACH TAB PO PRN ×2 (14:50→19:31)
--- NOTE | 2020-01-17 14:57 | P.HPIM ---
History of Present Illness H&P Date: 01/17/20 Chief Complaint: Low back pain This is a 44-year-old male with complex past medical history noted below significant for chronic low back pain who presented to the emergency room with onset of her pain. Patient said that his pain started several weeks ago and is been following with his PCP who prescribed him pain medication, muscle relaxer, and steroids. Patient said that his pain did not improve and yesterday he was trying to get out of the truck when he felt a severe pain in his low back and left buttock area and since then he was unable to even get a flat or sitting down. He said the pain is radiating down his left leg down to the toes on the backside of the leg. He is rating his pain as 10 out of 10 in severity. He denies numbness or tingling this. No bladder incontinence. No weakness anywhere. No saddle anesthesia. Patient was evaluated in the ER and computed tomography scan of the lumbar spine showed degenerative joint disease. He was placed on observation for symptoms control. Review of Systems Review of system: 14 points review of systems were obtained and were negative except to what were mentioned in the HPI. Past Medical History Past Medical History: Atrial Fibrillation, GERD/Reflux, Musculoskeletal Disorder, Skin Disorder Additional Past Medical History / Comment(s): PACEMAKER @ AGE 24, ACNE, anemia currently, sometimes oxygen levels drop so uses nebulizer/inhaler for prn History of Any Multi-Drug Resistant Organisms: MRSA Date of last positivie culture/infection: 05/25/15 MDRO Source:: Left Wrist Past Surgical History: Cardiac Ablation, Heart Catheterization, Orthopedic Surgery, Pacemaker Additional Past Surgical History / Comment(s): ASD REPAIR TO REPAIR HOLE BETWEEN 2 UPPER CHAMBERS AT AGE 5., PACEMAKER INSERTED SINCE AGE 24, D/T BRADYCARDIA, AND REPLACED X1. Neck surgery - Fall 2017 (Dr. Horowitz) Past Anesthesia/Blood Transfusion Reactions: No Reported Reaction Additional Past Anesthesia/Blood Transfusion Reaction / Comment(s): problem with having face covered-panic attacks Type of Cardiac Device: Permanent Pacemaker Device Placement Date:: 2010 BIOT Past Psychological History: Anxiety, Bipolar, Depression, Panic Disorder Additional Psychological History / Comment(s): antisocial disorder Smoking Status: Former smoker Past Alcohol Use History: None Reported Additional Past Alcohol Use History / Comment(s): started smoking at age 14 1pp, quit 2000. Smoked for 11 years. Past Drug Use History: Cocaine Additional Drug Use History / Comment(s): past use of marijuana as teenager, none now - Past Family History Mother Family Medical History: No Reported History Additional Family Medical History / Comment(s): . Medications and Allergies Home Medications Medication Instructions Recorded Confirmed Type HYDROcodone/APAP 10-325MG [[place] 1 tab PO TID 11/25/15 01/17/20 History 10-325] Flecainide Acetate 50 mg PO BID 06/13/16 01/17/20 History Famotidine [Pepcid] 20 mg PO BID 12/05/17 01/17/20 History Metoprolol Tartrate [Lopressor] 25 mg PO BID 12/05/17 01/17/20 History hydrOXYzine HCL [Atarax] 50 mg PO TID 06/20/19 01/17/20 History Albuterol Inhaler [Ventolin Hfa 2 puff INHALATION RT-QID PRN 01/17/20 01/17/20 History Inhaler] Baclofen [Lioresal] 20 mg PO QID PRN 01/17/20 01/17/20 History Diclofenac Sodium Gel [Voltaren 2 gm TOPICAL QID PRN 01/17/20 01/17/20 History Gel] Dicyclomine HCl 10 mg PO DAILY 01/17/20 01/17/20 History Divalproex Sodium [Depakote] 1,000 mg PO HS 01/17/20 01/17/20 History Divalproex Sodium [Depakote] 500 mg PO QAM 01/17/20 01/17/20 History Omeprazole [PriLOSEC] 20 mg PO DAILY 01/17/20 01/17/20 History risperiDONE [RisperDAL] 1 mg PO BID 01/17/20 01/17/20 History Allergies Allergy/AdvReac Type Severity Reaction Status Date / Time sulfamethoxazole Allergy Unknown Rash/Hives/ Verified 01/17/20 14:31 [From Bactrim] Itching trimethoprim [From Bactrim] Allergy Unknown Rash/Hives/ Verified 01/17/20 14:31 Itching daptomycin Allergy Rash/Hives/ Verified 01/17/20 14:31 Itching hydromorphone HCl Allergy Rash/Hives/ Verified 01/17/20 14:31 [From Dilaudid] Itching lorazepam [From Ativan] Allergy Unknown Verified 01/17/20 14:31 vancomycin Allergy Rash/Hives/ Verified 01/17/20 14:31 Itching ibuprofen [From Motrin] AdvReac Nausea & Verified 01/17/20 14:31 Vomiting Physical Exam Vitals: Vital Signs Temp Pulse Resp BP Pulse Ox 01/17/20 13:43 98.7 F 78 16 134/95 98 01/17/20 10:22 79 17 135/98 96 01/17/20 08:57 97.9 F 93 18 122/85 96 Intake and Output 01/16/20 01/17/20 01/17/20 22:59 06:59 14:59 Other: Weight 77.111 kg General: The patient is awake and alert, in no distress Eye: there is normal conjunctiva bilaterally. Neck: The neck is supple, there is no JVD. Cardiovascular: Normal S1-S2, no S3-S4, no murmurs. Respiratory: Lungs clear to auscultation bilaterally Gastrointestinal: Abdomen is soft, nontender Musculoskeletal: There is no pedal edema. Neurological:. Speech is normal. Skin: Skin is warm and dry Results CBC & Chem 7: 01/17/20 11:36 01/17/20 11:36 Labs: Abnormal Lab Results - Last 24 Hours (Table) 01/17/20 Range/Units 11:36 Glucose 101 H (74-99) mg/dL Albumin 5.1 H (3.5-5.0) g/dL Thrombosis Risk Factor Assmnt - Choose All That Apply Any of the Below Risk Factors Present?: Yes Each Factor Represents 1 point: Age 41-60 years Other Risk Factors: No Other congenital or acquired thrombophilia - If yes, enter type in comment: No Thrombosis Risk Factor Assessment Total Risk Factor Score: 1 Thrombosis Risk Factor Assessment Level: Low Risk Assessment and Plan Assessment: 1. Severe low back pain with left sciatica, computed tomography scan of the lumbar spine with DJD. Received Solu-Medrol 125 mg IV in the ER. We will continue with Valium 2 mg every 6 hours as needed. [place] 10/325 every 4 as needed. 2. Chronic atrial fibrillation, on flecainide. Patient has been taken off of his anticoagulation as per his PCP 3. Underlying anxiety, continue home medications 4. History of prior cardiac surgery (at age 5 per patient report) and history of pacemaker implantation 5. GI and DVT prophylaxis with IV Protonix and subcu heparin Today, I reviewed his medication list and lab work results. Also spine surgery for further evaluation. Patient has multiple ALLERGIES to NSAIDs and IV Dilaudid
[2020-01-17] MEDS: PANTOPRAZOLE 40 MG/10 ML VIAL IVP SCH (16:23)
[2020-01-17] MEDS: MORPHINE SULFATE 2 MG/ML SYRINGE IVP PRN ×2 (16:56→20:35)
[2020-01-17] MEDS: BACLOFEN 10 MG TAB PO PRN ×2 (16:56→20:34)
[2020-01-17] MEDS: KETOROLAC 15 MG/ML 1 ML VIAL IVP SCH ×2 (17:01→23:25)
[2020-01-17] MEDS: risperiDONE 1 MG TAB PO SCH (20:33)
[2020-01-17] MEDS: FLECAINIDE 50 MG TAB PO SCH (20:33)
[2020-01-17] MEDS: METOPROLOL TARTRATE 25 MG TAB PO SCH (20:33)
[2020-01-17] MEDS: HEPARIN SODIUM,PORCINE 5,000 UNIT/ML 1 ML VIAL SQ SCH (20:34)
[2020-01-17] MEDS: DIVALPROEX 500 MG TABLET.DR PO SCH (20:34)
[2020-01-18] MEDS: MORPHINE SULFATE 2 MG/ML SYRINGE IVP PRN ×4 (00:43→22:41)
[2020-01-18] MEDS: KETOROLAC 15 MG/ML 1 ML VIAL IVP SCH ×2 (05:57→11:40)
[2020-01-18] MEDS: PANTOPRAZOLE 40 MG/10 ML VIAL IVP SCH (08:21)
[2020-01-18] MEDS: HEPARIN SODIUM,PORCINE 5,000 UNIT/ML 1 ML VIAL SQ SCH ×2 (08:21→21:26)
[2020-01-18] MEDS: FLECAINIDE 50 MG TAB PO SCH ×2 (08:21→21:25)
[2020-01-18] MEDS: METOPROLOL TARTRATE 25 MG TAB PO SCH ×2 (08:21→21:24)
[2020-01-18] MEDS: DIVALPROEX 500 MG TABLET.DR PO SCH ×2 (08:21→21:25)
[2020-01-18] MEDS: risperiDONE 1 MG TAB PO SCH ×2 (08:22→21:25)
[2020-01-18] MEDS: DICYCLOMINE 10 MG CAP PO SCH (08:22)
[2020-01-18] MEDS: BACLOFEN 10 MG TAB PO PRN ×2 (08:30→18:20)
--- NOTE | 2020-01-18 10:27 | P.CNOR ---
History of Present Illness - [facility] Consult date: 01/18/20 Consult reason: other History of present illness: Patient is a 44-year-old male who is known to our service with history of cervical issues. He underwent cervical spine surgery in the past and is overall done well with that. When he had his surgery it was very difficult to manage him postoperatively. With his pain control and compliance. We have not seen him in several years. He presents again today in regards to his low back. He presented to the emergency room yesterday where he was having intractable severe pain at his left lower extremity. He says the pain started just 1 week ago when he was trans ferred to his leg up to stand up on the back of a pickup truck. He gave him problems he tried some medications outpatient appropriately but then had a severe flareup yesterday. He says the pain in his left leg is intense and severe and unrelenting. He was unable to sit or lay down because of the pain. Yesterday he was given some medications and it settled a little bit so that he was able to lay down. He says that it hurts over his entire leg. He does not give a specific pattern. he says he has difficulty moving his legs but he feels it is due to pain that specifically due to weakness. The right leg is okay. He says the pain is primarily at the left lower extremity from his buttocks pain extending down his left leg. He denies any chest pain or shortness breath denies any new problems in his upper extremity. Denies any new problems in his neck. Review of Systems denies changes in bowel bladder function. Denies any changes in his urinary issues. Denies any changes with his neck or upper extremities recently. He denies chest pain shortness of breath. Denies any specific injury but just reports stepping up to stretch to stand up on the back of a tailgate of a truck. He denies any prior problems in his back or lower extremities. he has history of cardiac defects and has undergone surgery for them he has history of pacemaker placement Past Medical History Past Medical History: Atrial Fibrillation, GERD/Reflux, Musculoskeletal Disorder, Skin Disorder Additional Past Medical History / Comment(s): PACEMAKER @ AGE 24, ACNE, anemia currently, sometimes oxygen levels drop so uses nebulizer/inhaler for prn History of Any Multi-Drug Resistant Organisms: MRSA Year Discovered:: 05/25/15 MDRO Source:: Left Wrist Past Surgical History: Cardiac Ablation, Heart Catheterization, Orthopedic Surgery, Pacemaker Additional Past Surgical History / Comment(s): ASD REPAIR TO REPAIR HOLE BETWEEN 2 UPPER CHAMBERS AT AGE 5., PACEMAKER INSERTED SINCE AGE 24, D/T BRADYCARDIA, AND REPLACED X1. Neck surgery - Fall 2016 (Dr. Horowitz) Past Anesthesia/Blood Transfusion Reactions: No Reported Reaction Additional Past Anesthesia/Blood Transfusion Reaction / Comm: problem with having face covered-panic attacks Type of Cardiac Device: Permanent Pacemaker Device Placement Date:: 2010 BIOTRONIC Past Psychological History: Anxiety, Bipolar, Depression, Panic Disorder Additional Psychological History / Comment(s): antisocial disorder Smoking Status: Former smoker Past Alcohol Use History: None Reported Additional Past Alcohol Use History / Comment(s): started smoking at age 14 1pp, quit 2000. Smoked for 11 years. Past Drug Use History: Cocaine Additional Drug Use History / Comment(s): past use of marijuana as teenager, none now - Past Family History Mother Family Medical History: No Reported History Additional Family Medical History / Comment(s): . Medications and Allergies Home Medications Medication Instructions Recorded Confirmed Type HYDROcodone/APAP 10-325MG [[place] 1 tab PO TID 11/25/15 01/17/20 History 10-325] Flecainide Acetate 50 mg PO BID 06/13/16 01/17/20 History Famotidine [Pepcid] 20 mg PO BID 12/05/17 01/17/20 History Metoprolol Tartrate [Lopressor] 25 mg PO BID 12/05/17 01/17/20 History hydrOXYzine HCL [Atarax] 50 mg PO TID 06/20/19 01/17/20 History Albuterol Inhaler [Ventolin Hfa 2 puff INHALATION RT-QID PRN 01/17/20 01/17/20 History Inhaler] Baclofen [Lioresal] 20 mg PO QID PRN 01/17/20 01/17/20 History Diclofenac Sodium Gel [Voltaren 2 gm TOPICAL QID PRN 01/17/20 01/17/20 History Gel] Dicyclomine HCl 10 mg PO DAILY 01/17/20 01/17/20 History Divalproex Sodium [Depakote] 1,000 mg PO HS 01/17/20 01/17/20 History Divalproex Sodium [Depakote] 500 mg PO QAM 01/17/20 01/17/20 History Omeprazole [PriLOSEC] 20 mg PO DAILY 01/17/20 01/17/20 History risperiDONE [RisperDAL] 1 mg PO BID 01/17/20 01/17/20 History Allergies Allergy/AdvReac Type Severity Reaction Status Date / Time sulfamethoxazole Allergy Unknown Rash/Hives/ Verified 01/17/20 14:31 [From Bactrim] Itching trimethoprim [From Bactrim] Allergy Unknown Rash/Hives/ Verified 01/17/20 14:31 Itching daptomycin Allergy Rash/Hives/ Verified 01/17/20 14:31 Itching hydromorphone HCl Allergy Rash/Hives/ Verified 01/17/20 14:31 [From Dilaudid] Itching lorazepam [From Ativan] Allergy Unknown Verified 01/17/20 14:31 vancomycin Allergy Rash/Hives/ Verified 01/17/20 14:31 Itching ibuprofen [From Motrin] AdvReac Nausea & Verified 01/17/20 14:31 Vomiting Physical Examination Osteopathic Statement: *. No significant issues noted on an osteopathic structural exam other than those noted in the History and Physical/Consult. - L Spine: dermatomal strength & reflexes left Strength: hip flexion: 4/5 (he has obvious splinting and pain at his back when he tries to move. There is no open wounds lacerations or abrasions. He has diminished strength globally over his left leg which seems to be due to pain more than it does strength specifically. He does have sustained dorsal flexion plantar flexion) Results - Labs Labs: Abnormal Lab Results - Last 24 Hours (Table) 01/17/20 Range/Units 11:36 Glucose 101 H (74-99) mg/dL Albumin 5.1 H (3.5-5.0) g/dL H & H 01/17/20 Range/Units 11:36 Hgb 15.0 (13.0-17.5) gm/dL Hct 46.4 (39.0-53.0) % Result Diagrams: 01/17/20 11:36 01/17/20 11:36 - Diagnostic results CT Scan - lumbar: report reviewed, image reviewed (computed tomography scan of his lumbar spine is reviewed. 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 He has a spondylolysis at L4 bilaterally he has a spondylolisthesis L4 5 with severe facet arthrosis. There is disc protrusion L4 5. There is some disc degeneration at L3) Assessment and Plan Assessment: acute left lower extremity radiculopathy Spondylolisthesis L4 5 Spondylolysis L4 5 Degenerative disc disease Intractable low back pain and lower extremity radiculopathy Plan: acute left lower extremity radiculopathy Spondylolisthesis L4 5 Spondylolysis L4 5 Degenerative disc disease Intractable low back pain and lower extremity radiculopathy the patient has multiple changes in his lumbar spine and seems to have acutely exacerbated the spondylolisthesis and stenosis at L4 5. He may have a new disc herniation at L4 5 but it is somewhat difficult to fully ascertain on the computed tomography scan. He is unable to obtain an MRI scan due to his pacemaker. His pain may benefit from a short course of further steroid medication through the IV and pain control. He was given a dose of Cymetra last night and we will continue that over the next day or 2 to see if that helps settle things down. He'll continue his pain medications. We will try to mobilize him as well. Hopefully interventional pain management and see him and he can obtain an epidural steroid injection helped settle down his pain further so he can be continued with management on an outpatient basis. The patient would be a candidate for surgical intervention for decompression and fusion. He may need outpatient CT myelogram for surgical intervention. He would certainly like to try to maximize conservative care before undergoing surgical treatment and we discussed this today at bedside. We'll continue follow him with you. Hopefully he'll be able to discharge if we can settle down some of the AP acute pain with conservative care and continue close follow-up outpatient.
[2020-01-18] MEDS: methylPREDNISolone SOD SUCCI 125 MG/2 ML VIAL IV SCH ×2 (11:41→21:25)
--- NOTE | 2020-01-18 13:58 | P.PN ---
Subjective Progress Note Date: 01/18/20 Patient still having a lot of pain and discomfort. Pain is radiating from the left includes down to his knee. He was up standing and unable to lay flat secondary to pain Objective - Vital Signs Vital signs: Vital Signs Temp 97.9 F 01/18/20 09:00 Pulse 82 01/18/20 09:00 Resp 12 01/18/20 09:00 BP 125/75 01/18/20 09:00 Pulse Ox 98 01/18/20 09:00 Intake & Output 01/17/20 01/18/20 01/18/20 18:59 06:59 18:59 Intake Total 0 Balance 0 Weight 77.111 kg Intake: Tube Feeding 0 Other: Voiding Method Toilet # Voids 2 2 - Exam General: The patient is awake and alert, in no distress Eye: there is normal conjunctiva bilaterally. Neck: The neck is supple, there is no JVD. Cardiovascular: Normal S1-S2, no S3-S4, no murmurs. Respiratory: Lungs clear to auscultation bilaterally Gastrointestinal: Abdomen is soft, nontender Musculoskeletal: There is no pedal edema. Neurological:. Speech is normal. Skin: Skin is warm and dry - Labs CBC & Chem 7: 01/17/20 11:36 01/17/20 11:36 Assessment and Plan Assessment: 1. Severe low back pain with left sciatica, computed tomography scan of the lumbar spine with DJD. Received Solu-Medrol 125 mg IV in the ER. Seen and evaluated by spine surgery. Continue IV Solu-Medrol twice daily. Pain management consulted for possible epidural injection. We will continue with V alium 2 mg every 6 hours as needed. [place] 10/325 every 4 as needed. 2. Chronic atrial fibrillation, on flecainide. Patient has been taken off of his anticoagulation as per his PCP 3. Underlying anxiety, continue home medications 4. History of prior cardiac surgery (at age 5 per patient report) and history of pacemaker implantation 5. GI and DVT prophylaxis with IV Protonix and subcu heparin Today, I reviewed his medication list and lab work results. Patient has multiple ALLERGIES to NSAIDs and IV Dilaudid
[2020-01-18] MEDS: diazePAM 2 MG TAB PO PRN (21:24)
[2020-01-19] MEDS: MORPHINE SULFATE 2 MG/ML SYRINGE IVP PRN ×2 (03:47→09:02)
[2020-01-19] MEDS: HEPARIN SODIUM,PORCINE 5,000 UNIT/ML 1 ML VIAL SQ SCH (08:24)
[2020-01-19] MEDS: methylPREDNISolone SOD SUCCI 125 MG/2 ML VIAL IV SCH (09:01)
[2020-01-19] MEDS: METOPROLOL TARTRATE 25 MG TAB PO SCH (09:01)
[2020-01-19] MEDS: PANTOPRAZOLE 40 MG/10 ML VIAL IVP SCH (09:01)
[2020-01-19] MEDS: BACLOFEN 10 MG TAB PO PRN (09:01)
[2020-01-19] MEDS: FLECAINIDE 50 MG TAB PO SCH (09:03)
[2020-01-19] MEDS: DIVALPROEX 500 MG TABLET.DR PO SCH (09:03)
[2020-01-19] MEDS: risperiDONE 1 MG TAB PO SCH (09:03)
--- NOTE | 2020-01-19 09:21 | P.PAINCN ---
History of Present Illness - Reason for Consult Consult date: 01/19/20 - History of Present Illness This is 44 years old male was admitted to [facility] secondary to severe intractable low back pain with radiation to the left lower extremity, associated with numbness and tingling sensation, the pain is severe and intense and he feels his left lower extremity weak, the pain is constant and localized in the low back area with radiation to the left low back and left leg, patient reported that , the pain started 2 weeks ,, denies any fever or night sweats. He denies any change in the bowel movement or urination, Past Medical History Past Medical History: Atrial Fibrillation, GERD/Reflux, Musculoskeletal Disorder, Skin Disorder Additional Past Medical History / Comment(s): PACEMAKER @ AGE 24, ACNE, anemia currently, sometimes oxygen levels drop so uses nebulizer/inhaler for prn History of Any Multi-Drug Resistant Organisms: MRSA Year Discovered:: 05/25/15 MDRO Source:: Left Wrist Past Surgical History: Cardiac Ablation, Heart Catheterization, Orthopedic Surgery, Pacemaker Additional Past Surgical History / Comment(s): ASD REPAIR TO REPAIR HOLE BETWEEN 2 UPPER CHAMBERS AT AGE 5., PACEMAKER INSERTED SINCE AGE 24, D/T BRADYCARDIA, AND REPLACED X1. Neck surgery - Fall 2016 (Dr. Horowitz) Past Anesthesia/Blood Transfusion Reactions: No Reported Reaction Additional Past Anesthesia/Blood Transfusion Reaction / Comm: problem with having face covered-panic attacks Type of Cardiac Device: Permanent Pacemaker Device Placement Date:: 2010 BIOT Past Psychological History: Anxiety, Bipolar, Depression, Panic Disorder Additional Psychological History / Comment(s): antisocial disorder Smoking Status: Former smoker Past Alcohol Use History: None Reported Additional Past Alcohol Use History / Comment(s): started smoking at age 14 1pp, quit 2000. Smoked for 11 years. Past Drug Use History: Cocaine Additional Drug Use History / Comment(s): past use of marijuana as teenager, none now - Past Family History Mother Family Medical History: No Reported History Additional Family Medical History / Comment(s): . Medications and Allergies Home Medications Medication Instructions Recorded Confirmed Type HYDROcodone/APAP 10-325MG [[place] 1 tab PO TID 11/25/15 01/17/20 History 10-325] Flecainide Acetate 50 mg PO BID 06/13/16 01/17/20 History Famotidine [Pepcid] 20 mg PO BID 12/05/17 01/17/20 History Metoprolol Tartrate [Lopressor] 25 mg PO BID 12/05/17 01/17/20 History hydrOXYzine HCL [Atarax] 50 mg PO TID 06/20/19 01/17/20 History Albuterol Inhaler [Ventolin Hfa 2 puff INHALATION RT-QID PRN 01/17/20 01/17/20 History Inhaler] Baclofen [Lioresal] 20 mg PO QID PRN 01/17/20 01/17/20 History Diclofenac Sodium Gel [Voltaren 2 gm TOPICAL QID PRN 01/17/20 01/17/20 History Gel] Dicyclomine HCl 10 mg PO DAILY 01/17/20 01/17/20 History Divalproex Sodium [Depakote] 1,000 mg PO HS 01/17/20 01/17/20 History Divalproex Sodium [Depakote] 500 mg PO QAM 01/17/20 01/17/20 History Omeprazole [PriLOSEC] 20 mg PO DAILY 01/17/20 01/17/20 History risperiDONE [RisperDAL] 1 mg PO BID 01/17/20 01/17/20 History Allergies Allergy/AdvReac Type Severity Reaction Status Date / Time sulfamethoxazole Allergy Unknown Rash/Hives/ Verified 01/17/20 14:31 [From Bactrim] Itching trimethoprim [From Bactrim] Allergy Unknown Rash/Hives/ Verified 01/17/20 14:31 Itching daptomycin Allergy Rash/Hives/ Verified 01/17/20 14:31 Itching hydromorphone HCl Allergy Rash/Hives/ Verified 01/17/20 14:31 [From Dilaudid] Itching lorazepam [From Ativan] Allergy Unknown Verified 01/17/20 14:31 vancomycin Allergy Rash/Hives/ Verified 01/17/20 14:31 Itching ibuprofen [From Motrin] AdvReac Nausea & Verified 01/17/20 14:31 Vomiting Physical Exam Vitals: Vital Signs Temp Pulse Resp BP Pulse Ox 01/19/20 03:12 97.6 F 81 14 113/59 94 L 01/18/20 21:26 97.7 F 71 16 147/74 97 01/18/20 15:00 98.2 F 78 14 138/78 100 Intake and Output 01/18/20 01/19/20 01/19/20 22:59 06:59 14:59 Intake Total 250 Balance 250 Intake: Oral 250 Other: Voiding Method Toilet Toilet Physical Examinations : -Constitutiona : Cooperative , not in acute distress . -HEENT : nech : supple , no Lymphadenopathy , normal thyroid size . : eyes : no ptosis , no icterus, no photophobia . - neurologic : Cranial nerve II to XII intact , no focal neurological deffecit . -psychatric : alert , oriented X 3 , appropriate affect , intact judgment and insight . -Lymphatic : no Lymphadenopathy . - musculoskeltal : Lumber spine moter stegnth lower extremities ,thigh and legs 5/5 Right side , 3/5 Left side deep tendon reflexes : normal Knee Jerk , normal ankle Jerk lumber facet Loading Test =positive Right , positive Left Range of motion of the lumbar spine Flexion 30 degrees, extension 10 degrees strait leg raising test = positive at 30 degree on the left side and is negative on the right side Fabere test= positive Right , and positive LT . mild tenderness over the Sacroiliac joint on the Right , and Left sides Results CBC & Chem 7: 01/17/20 11:36 01/17/20 11:36 Comments: Computed tomography scan of the lumbar spine= multilevel lumbar degenerative disc disease and multilevel lumbar spondylosis with facet arthropathy Patient is not candidate for MRI because he had a pacemaker Assessment and Plan Plan: Assessment and plan=1-lumbar radiculopathy. 2-lumbar degenerative disc disease. 3-lumbar spondylosis with lumbar facet arthropathy. Patient could benefit from lumbar epidural steroid injection, procedure risk and benefits and alternatives discussed with the patient he agreed with proceeding Time with Patient: Less than 30 PQRS Measure Charge Sheet PQRS Narrative: Smoking Status Former smoker Blood Pressure [Left Arm 113/59 Supine] Blood Pressure 134/95 Pain Intensity [Left Hip] 7 Pain Intensity [Back] 7 Pain Intensity 7 Pain Scale Used Numeric (1 - 10) Scale Used Numeric (1 - 10) Hx Alcohol Use (MH) No Home Medications: Ambulatory Orders HYDROcodone/APAP 10-325MG [[place] 10-325] 1 tab PO TID 11/25/15 Flecainide Acetate 50 mg PO BID 06/13/16 Famotidine [Pepcid] 20 mg PO BID 12/05/17 Metoprolol Tartrate [Lopressor] 25 mg PO BID 12/05/17 hydrOXYzine HCL [Atarax] 50 mg PO TID 06/20/19 Albuterol Inhaler [Ventolin Hfa Inhaler] 2 puff INHALATION RT-QID PRN 01/17/20 Baclofen [Lioresal] 20 mg PO QID PRN 01/17/20 Diclofenac Sodium Gel [Voltaren Gel] 2 gm TOPICAL QID PRN 01/17/20 Dicyclomine HCl 10 mg PO DAILY 01/17/20 Divalproex Sodium [Depakote] 1,000 mg PO HS 01/17/20 Divalproex Sodium [Depakote] 500 mg PO QAM 01/17/20 Omeprazole [PriLOSEC] 20 mg PO DAILY 01/17/20 risperiDONE [RisperDAL] 1 mg PO BID 01/17/20
--- NOTE | 2020-01-19 10:42 | P.PN ---
Progress Note - Text Progress Note Date: 01/19/20 Orthopedic spine: History of present illness: Patient is a pleasant 44-year-old male known to our service was seen and examined at bedside for follow-up evaluation for his left lower extremity radiculopathy and low back pain. He states his left lower extremity radiculopathy is his most significant symptom. He has been seen by pain management this morning. He is planning to have an injection by pain management at approximately noon today. Patient states since admission to the hospital he has had some improvement of his pain overall that his pain continues to be significant. He has pain that radiates down the left posterior lateral thigh an d over the anterior lovelace to the top of the foot. He has difficulty with mobilization due to his left leg pain. He denies the right lower extremity radiculopathy. Patient does have a pacemaker and was unable to have an MRI. CT imaging does show evidence of L4 spondylolysis and L4-5 spondylolisthesis. Patient will like to work through conservative treatment options currently.He continues to be seeing them by medicine for his other medical diagnoses including chronic atrial fibrillation with pacemaker placement. Physical exam: Patient is awake, alert, and oriented 3 Vital signs stable Good chest excursion with deep inspiration and expiration Abdomen soft nontender Examination of lumbar spine reveals skin is intact with no abrasions, aspirations, or bruises; no erythema, purulence or signs of infection Dorsiflexion, plantarflexion, and extensor hallucis longus positive sustained bilaterally Lower extremity strength 5/5 bilaterally Patellar reflex 2+ bilaterally and Achilles reflexes 2+ bilaterally No lower extremity hyperreflexia bilaterally Straight leg test negative bilateral lower extremities Negative Lasegue's test bilaterally No signs or symptoms of DVT; no calf pain No pain with internal and external rotation of the hips bilaterally Neurovascularly intact Pertinent studies: CT lumbar spine taken on 01/17/2020: 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 After physical examination the patient, for the discussion with the patient, reviewing of imaging, and patient discussion with Dr. Jag Horowitz, we will currently plan to continue conservative treatment regards to his lumbar spine. He does have significant changes most significant at L4-5 with spondylolisthesis and L4 bilateral spondylolysis. The changes at this level correlate well with his left lower extremity radiculopathy symptoms. He has been seen by pain management and is scheduled to undergo an injection today at noon. We discussed with the patient's symptoms are able to be better controlled, he is clear for discharge today from an orthopedic spine standpoint. We will plan have him follow-up in approximately 1 week for further evaluation in the outpatient setting. Depending how he is progressing through conservative treatment options at that time, we will discuss further treatment options including possibility of surgical intervention or he did fail conservative treatment. Patient feels as good plan of care. He may ambulate and participate in his activities of daily living to his tolerance. We discussed patient may be discharged home with medications as recommended and prescribed by pain management including the possibility of a steroid taper. Following discharge, patient may follow-up with Roldan Bryson PA-C or Dr. Jag Horowitz at [facility] in 1 week following discharge. 2. Patient will continue to be seen and examined by pain management and [facility].
[2020-01-19] MEDS ORDERED: methylPREDNISolone ACETATE 80 MG/ML 1 ML VIAL ONE (11:30)
[2020-01-19] MEDS ORDERED: SODIUM CHLORIDE 0.9% 1,000 ML IV ONE (11:33)
[2020-01-19] MEDS: fentaNYL (PF) 50 MCG/ML 2 ML AMP IVP ONE ×2 (12:25→12:27)
[2020-01-19] MEDS: MIDAZOLAM 2 MG/2 ML VIAL IVP ONE ×2 (12:25→12:27)
[2020-01-19] MEDS ORDERED: methylPREDNISolone ACETATE 80 MG/ML 1 ML VIAL MISCELLANE ONE (12:30)
[2020-01-19 12:57] VITALS: BP 133/72; PULSE 79; RESP 18; TEMP 97.6
[2020-01-19] MEDS: DICYCLOMINE 10 MG CAP PO SCH (13:01)
--- NOTE | 2020-01-19 13:19 | P.PCN ---
Date of Procedure: 01/19/20 Procedure(s) Performed: PREOPERATIVE DIAGNOSIS: 1- Lumbar Degenerative Disc Diseases 2-Lumbar spondylosis with Facet arthropathy without myelopathy 3-lumbar radiculopathy POSTOPERATIVE DIAGNOSIS: 1-Lumber Degenerative Disc Diseases 2-Lumbar spondylosis with Facet arthropathy without myelopathy 3-lumbar radiculopathy PROCEDURE 1. Lumbar epidural steroid injection under fluoroscopic guidance at the L5-S1 level. ANESTHESIA: Local with 1% lidocaine 3 ml and , moderate sedation with intravenous Versed 2 mg ,and fentanyle 100 Mcg EBL: Minimal PROCEDURE INDICATION: The patient with low back pain and radiculitis symptoms unresponsive to conservative treatment. PROCEDURE DESCRIPTION / TECHNIQUE: The patient was seen and identified in the preoperative area. Risks, benefits, complications including but not limited to infections ,bleeding ,allergic reaction to the medications ,nerve damage and not complete pain releife , and alternatives were discussed with the patient. The patient agreed to proceed with the procedure and signed the consent. IV was started, and vital signs were stable. Patient was taken to the PACU and time out was completed. The patient was placed in the sitting position . The lumbosacral area was prepped and draped in the usual sterile fashion.ere closely monitored during the procedure. Conscious sedation was used during the procedure to decrease patients anxiety. Vital signs was monitered during the entire procedure. Using anterior-posterior fluoroscopy, the L5-S1 interlaminar space was identified and the skin over this site was marked and then infiltrated with 1% lidocaine subcutaneously. Subsequently, a 20-gauge Tuohy epidural needle was inserted and advanced toward the epidural space using the ``Loss of resistance technique , after negative aspiration for blood and CSF and in the absence of paresthesias. Again after negative aspiration, a 6 ml mixture containing 80 mg of Depo-medrol , and 2 ml of preservative free Normal Saline, and 2 ml of preservative free lidocaine 1% solution was injected . Needle was withdrawn intact, skin was cleansed, and bandages were applied. COMPLICATIONS: None DISPOSITION / PLANS: The patient was placed in a supine position . There was no evidence of lower extremity motor or sensory deficit after the procedure. Patient was discharged from the recovery room after meeting discharge criteria. Home discharge instructions were given to the patient by the staff. The patient was reexamined prior to discharge. The patient will schedule a follow up in the clinic in 2-4 weeks.
--- NOTE | 2020-01-19 13:32 | P.DS ---
Providers Date of admission: 01/18/20 14:35 Expected date of discharge: 01/19/20 Attending physician: Alena Cochran Consults: 01/17/20 14:23 Consult Physician Routine Consulting Provider: Daly Horowitz Consult Reason/Comments: back pain Do you want consulting provider notified?: Yes 01/18/20 10:17 Consult Physician Urgent Consulting Provider: Robert Garza Consult Reason/Comments: possible epidural steroid injection L4 5 Do you want consulting provider notified?: Yes Primary care physician: [facility] Course: This is a 44-year-old male with past medical history noted below that presented to the emergency room with severe low back pain. Patient was evaluated and placed on observation for further management of his medical problems noted below. 1. Severe low back pain with left sciatica, computed tomography scan of the lumbar spine with DJD. Seen and evaluated by spine surgery. Started on IV Solu-Medrol. Pain management consulted and patient underwent epidural steroid injection. Continue [place] 10/325 every 4 as needed. Medrol Dosepak 2. Chronic atrial fibrillation, on flecainide. Patient has been taken off of his anticoagulation as per his PCP 3. Underlying anxiety, continue home medications 4. History of prior cardiac surgery (at age 5 per patient report) and history of pacemaker implantation Patient will be discharged home in a stable condition. He will follow-up with his PCP and spine surgery as directed. Patient Condition at Discharge: Fair Plan - Discharge Summary Discharge Rx Participant: No New Discharge Prescriptions: New methylPREDNISolone Dose Pack [Medrol Dose Pack] 4 mg PO DIRECTED #21 package Continue HYDROcodone/APAP 10-325MG [[place] 10-325] 1 tab PO TID Flecainide Acetate 50 mg PO BID Metoprolol Tartrate [Lopressor] 25 mg PO BID Famotidine [Pepcid] 20 mg PO BID hydrOXYzine HCL [Atarax] 50 mg PO TID Albuterol Inhaler [Ventolin Hfa Inhaler] 2 puff INHALATION RT-QID PRN PRN Reason: Shortness Of Breath Omeprazole [PriLOSEC] 20 mg PO DAILY Dicyclomine HCl 10 mg PO DAILY Diclofenac Sodium Gel [Voltaren Gel] 2 gm TOPICAL QID PRN PRN Reason: Pain Baclofen [Lioresal] 20 mg PO QID PRN PRN Reason: Pain risperiDONE [RisperDAL] 1 mg PO BID Divalproex Sodium [Depakote] 1,000 mg PO HS Divalproex Sodium [Depakote] 500 mg PO QAM Discharge Medication List HYDROcodone/APAP 10-325MG [[place] 10-325] 1 tab PO TID 11/25/15 [History] Flecainide Acetate 50 mg PO BID 06/13/16 [History] Famotidine [Pepcid] 20 mg PO BID 12/05/17 [History] Metoprolol Tartrate [Lopressor] 25 mg PO BID 12/05/17 [History] hydrOXYzine HCL [Atarax] 50 mg PO TID 06/20/19 [History] Albuterol Inhaler [Ventolin Hfa Inhaler] 2 puff INHALATION RT-QID PRN 01/17/20 [History] Baclofen [Lioresal] 20 mg PO QID PRN 01/17/20 [History] Diclofenac Sodium Gel [Voltaren Gel] 2 gm TOPICAL QID PRN 01/17/20 [History] Dicyclomine HCl 10 mg PO DAILY 01/17/20 [History] Divalproex Sodium [Depakote] 1,000 mg PO HS 01/17/20 [History] Divalproex Sodium [Depakote] 500 mg PO QAM 01/17/20 [History] Omeprazole [PriLOSEC] 20 mg PO DAILY 01/17/20 [History] risperiDONE [RisperDAL] 1 mg PO BID 01/17/20 [History] methylPREDNISolone Dose Pack [Medrol Dose Pack] 4 mg PO DIRECTED #21 package 01/19/20 [Rx] Follow up Appointment(s)/Referral(s): Roldan Bryson PAC [PHYSICIAN QUALITY ASSURANCE CONSULTANT] - 1 Week (Patient may follow-up with Roldan Bryson PA-C or Dr. Jag Horowitz at [facility] in 1 weekfollowing discharge. ) [facility] [NON-STAFF] - 1 Week Byron Chua MD [Primary Care Provider] - 1-2 days Discharge Disposition: HOME SELF-CARE
[2020-01-20] MEDS ORDERED: PANTOPRAZOLE 40 MG TABLET PO SCH (07:30)
== END 2020-01-19 13:56 | disposition home or self-care (01) | DRG 552 ==
LOC: EC 08:55 → 1SOBS 12:48 → OBSVTOIN 01-18 14:35
PROVIDERS: ADMIT Internal Medicine; ATTEND Internal Medicine
PROC: 3E0R33Z Introduction of Anti-inflammatory into Spinal Canal, Percutaneous Approach (ICD-10-PCS; principal; 2020-01-19 12:00)
DX: M47.26 Other spondylosis with radiculopathy, lumbar region (principal); I48.20 Chronic atrial fibrillation, unspecified; F31.9 Bipolar disorder, unspecified; G89.29 Other chronic pain; K21.9 Gastro-esophageal reflux disease without esophagitis; F41.0 Panic disorder [episodic paroxysmal anxiety]; M43.16 Spondylolisthesis, lumbar region; M51.16 Intervertebral disc disorders with radiculopathy, lumbar region; Z79.899 Other long term (current) drug therapy; Z86.14 Personal history of Methicillin resistant Staphylococcus aureus infection; Z95.0 Presence of cardiac pacemaker; Z87.74 Personal history of (corrected) congenital malformations of heart and circulatory system; Z87.891 Personal history of nicotine dependence; Z87.39 Personal history of other diseases of the musculoskeletal system and connective tissue; Z87.2 Personal history of diseases of the skin and subcutaneous tissue; Z88.6 Allergy status to analgesic agent; Z88.1 Allergy status to other antibiotic agents; Z88.2 Allergy status to sulfonamides; Z88.8 Allergy status to other drugs, medicaments and biological substances
CPT/HCPCS: 36415; 62323; 72131; 80053; 83735; 85025; 96374; 96375; 96376; 99284

== ENCOUNTER → 2020-02-02 | Outpatient (CLI) | payer OTHER ==
[2020-02-02 10:12] VITALS: BP 117/76; PULSE 78; RESP 14; TEMP 98.3
--- NOTE | 2020-02-02 10:31 | P.PN ---
Subjective Progress Note Date: 02/02/20 This is a 44-year-old gentleman with a three-week history of lower back pain with radiation to the left lower extremity down to the left foot with numbness and tingling in the left foot. The patient also feels weakness in the left leg but he denies any bowel or bladder dysfunction. The patient has significant cardiac history with open-heart surgery in childhood for what seems to be ASD repair. The patient ended up with a pacemaker. He used to be on Coumadin however he does not take any anticoagulants at this point as he states. He uses [place] for his pain. Patient denies new-onset weakness, bowel/bladder incontinence, or any other signs or symptoms of cauda equina syndrome. There are no signs of acute intoxication, and no indications of medication diversion or overuse. In addition to above, 13-point review of systems is also negative for chest pain, shortness of breath, changes in vision, changes in hearing, new onset weakness, abdominal pain, diarrhea, extreme fatigue, malaise, fever, skin changes, homicidal or suicidal ideation, or bowel or bladder incontinence. Vital Signs: Reviewed in EMR Gen: AAOx3, NAD HEENT: PERRLA,hearing grossly normal Pulm: resp unlabored Neck: supple, trachea midline Neuro exam of the lower extremities: Decreased muscle strength in the left lower extremity to 3 out of 5 for left knee flexion and extension and 4 out of 5 for hip flexion and ankle flexion and extension. Straight leg raising test: Significantly positive on the left side Positive tenderness around the left sacroiliac joint and in the lumbar paravertebral musculature on the left side. Neuro: CN II-XII grossly intact, Imaging: Reviewed in EMR/chart Assessment: Left lumbar radiculopathy Cardiac pacemaker Weakness and numbness in the left lower extremity Plan: The weakness in his left lower extremity continues to be a problem he might need to have surgery. The patient had seen Dr. Horowitz he wanted to try a second epidural steroid injection first. 1. Explanation: Opioid and psychological risk scores were reviewed. Diagnoses, prognoses, and multiple treatment options including but not limited to physical therapy, interventional therapies, adjuvant medical therapies, narcotic medication therapies, and surgery were discussed with the patient and all questions were answered to the patient's satisfaction. 2. Opioid agreement: Signed with the patient and the patient is warned not to use opioids while driving or before driving and not to combine opioids with benzodiazepines or alcohol. 3. Counseling: The patient was counseled extensively on SMOKING CESSATION, BODY MASS INDEX, EXERCISE. Specifically, the patient was instructed regarding the importance of smoking cessation, obesity, and exercise in the context of both chronic pain and overall health. 4. Procedures: Scheduled for a second lumbar epidural steroid injection at the L5-S1 level in the left paramedian approach 5. Consultations: None 6. Investigations: The patient had a computed tomography scan on the lumbar spine causing cannot have an MRI due to his pacemaker. 7. Medications: Continue current medications 8. Disposition: Return to the above-mentioned procedure as soon as possible 9. Maps were reviewed and were appropriate. Objective - Vital Signs Vital signs: Vital Signs Temp 98.3 F 02/02/20 10:05 Pulse 78 02/02/20 10:05 Resp 14 02/02/20 10:05 BP 117/76 02/02/20 10:05 Pulse Ox 97 02/02/20 10:05
== END | disposition home or self-care (01) ==
LOC: PNWHC3 09:36
PROVIDERS: ATTEND Anesthesiology
DX: M54.16 Radiculopathy, lumbar region (principal); M62.81 Muscle weakness (generalized); Z95.0 Presence of cardiac pacemaker
CPT/HCPCS: 99211

== ENCOUNTER 2020-03-02 06:50 | Day surgery (SDC) | payer OTHER ==
[2020-03-02 07:48] VITALS: TEMP 98
[2020-03-02] MEDS ORDERED: LACTATED RINGERS 1,000 ML IV SCH (07:51)
[2020-03-02] MEDS ORDERED: methylPREDNISolone ACETATE 40 MG/ML 1 ML VIAL ONE (08:20)
[2020-03-02] MEDS ORDERED: IOPAMIDOL M200 10 ML VIAL ONE (08:20)
--- NOTE | 2020-03-02 08:33 | P.PCN ---
Date of Procedure: 03/02/20 Procedure(s) Performed: PREOPERATIVE DIAGNOSIS: 1- Lumbar Degenerative Disc Diseases 2-Lumbar spondylosis with Facet arthropathy without myelopathy 3-lumbar radiculopathy POSTOPERATIVE DIAGNOSIS: 1-Lumber Degenerative Disc Diseases 2-Lumbar spondylosis with Facet arthropathy without myelopathy 3-lumbar radiculopathy PROCEDURE 1. Lumbar epidural steroid injection under fluoroscopic guidance at the L4-5 level. ANESTHESIA: Local with 1% lidocaine 3 ml only . EBL: Minimal PROCEDURE INDICATION: The patient with low back pain and radiculitis symptoms unresponsive to conservative treatment. PROCEDURE DESCRIPTION / TECHNIQUE: The patient was seen and identified in the preoperative area. Risks, benefits, complications including but not limited to infections ,bleeding ,allergic reaction to the medications ,nerve damage and not complete pain releife , and alternatives were discussed with the patient. The patient agreed to proceed with the procedure and signed the consent., and vital signs were stable. Patient was taken to the PACU and time out was completed. The patient was placed in the sitting position . The lumbosacral area was prepped and draped in the usual sterile fashion.ere closely monitored during the procedure. Vital signs was monitered during the entire procedure. Using anterior-posterior fluoroscopy, the L4-5 interlaminar space was identified and the skin over this site was marked and then infiltrated with 1% lidocaine subcutaneously. Subsequently, a 20-gauge Tuohy epidural needle was inserted and advanced toward the epidural space using the ``Loss of resistance technique , after negative aspiration for blood and CSF and in the absence of paresthesias. Again after negative aspiration, a 6 ml mixture containing 80 mg of Depo-medrol , and 2 ml of preservative free Normal Saline, and 2 ml of preservative free lidocaine 1% solution was injected . Needle was withdrawn intact, skin was cleansed, and bandages were applied. COMPLICATIONS: None DISPOSITION / PLANS: The patient was placed in a supine position . There was no evidence of lower extremity motor or sensory deficit after the procedure. Patient was discharged from the recovery room after meeting discharge criteria. Home discharge instructions were given to the patient by the staff. The patient was reexamined prior to discharge. The patient will schedule a follow up in the clinic in 2-4 weeks.
[2020-03-02 08:44] VITALS: PULSE 67; RESP 16
[2020-03-02 09:03] VITALS: BP 147/51
--- NOTE | 2020-03-02 09:28 | FL ---
EXAMINATION TYPE: FL guided pain mgmt statistic DATE OF EXAM: 03/02/2020 FLUOROSCOPY Fluoroscopy time of 2 seconds was used during lumbar epidural steroid injection. 1 image/s document/ s the procedure.
[2020-03-02] MEDS ORDERED: SODIUM CHLORIDE 0.9% (PF) 10 ML VIAL ONE (10:04)
[2020-03-02] MEDS ORDERED: LIDOCAINE 1% INJ 10MG/ML (20 ML MDV) ONE (10:04)
== END 2020-03-02 09:02 | disposition home or self-care (01) ==
LOC: ORPAIN 06:50
PROVIDERS: ATTEND Specialist
DX: M47.26 Other spondylosis with radiculopathy, lumbar region (principal); M51.16 Intervertebral disc disorders with radiculopathy, lumbar region; Z88.5 Allergy status to narcotic agent; Z88.8 Allergy status to other drugs, medicaments and biological substances
CPT/HCPCS: 62323; J1030; J2001; Q9966

== ENCOUNTER → 2020-05-05 | Outpatient (CLI) | payer OTHER ==
[2020-05-05 08:49] VITALS: BP 125/77; PULSE 72; RESP 18; TEMP 98
--- NOTE | 2020-05-05 09:21 | P.PN ---
Subjective Progress Note Date: 05/05/20 This is a follow-up visit for this 45 years old male with a chronic history of severe low back pain with radiation to the lower extremity, his diagnosed with lumbar degenerative disc disease and lumbar spondylosis with lumbar facet arthropathy, lumbar radiculopathy, previously we have done lumbar epidural steroid injections 2, and reported that he had minimal benefit after the injection, he continued to have severe low back pain with radiation to the lower extremity bilaterally more prominent on the left side, he denies any fever or night sweats he denies any change in the bowel movements or urination Objective - Vital Signs Vital signs: Vital Signs Temp 98.0 F 05/05/20 08:43 Pulse 72 05/05/20 08:43 Resp 18 05/05/20 08:43 BP 125/77 05/05/20 08:43 Pulse Ox 97 05/05/20 08:43 - Exam -Constitutiona : Cooperative , not in acute distress . -HEENT : nech : supple , no Lymphadenopathy , normal thyroid size . : eyes : no ptosis , no icterus, no photophobia . - neurologic : Cranial nerve II to XII intact , no focal neurological deffecit . -psychatric : alert , oriented X 3 , appropriate affect , intact judgment and insight . -Lymphatic : no Lymphadenopathy . - musculoskeltal : Lumber spine moter stegnth lower extremities ,thigh and legs 5/5 Right side , 4/5 Left side deep tendon reflexes : normal Knee Jerk , normal ankle Jerk lumber facet Loading Test =positive Right , positive Left Range of motion of the lumbar spine Flexion 30 degrees, extension 10 degrees strait leg raising test = positive at 30 degree on the left side and is negative on the right side Fabere test= positive Right , and positive LT . mild tenderness over the Sacroiliac joint on the Right , and Left sides Computed tomography scan of the lumbar spine= lumbar spondylolisthesis, lumbar degenerative disc disease, lumbar spondylosis with lumbar facet arthropathy Assessment and Plan Plan: Assessment and plan=1-lumbar radiculopathy. 2-lumbar degenerative disc disease. 3-lumbar spondylosis with lumbar facet arthropathy. Patient had no benefit from lumbar epidural steroid injection. Patient will be scheduled to have diagnostic medial branch block lumbar area at L3, L4, L5 ( facet L4-5 ,L5-S1 ) - PQRS measures = - Patient's medications are documented in the chart. -Tobacco use is negative and counseling.Given. -Patient's has not received pneumococcal vaccine. -Advanced care planning discussed, patient not eligible. -Opiate contract not signed. -Pain positive and follow-up visit/procedure is scheduled. -Patient's blood pressure measured [ 125/77 ] , and documented in the record ,and patient will follow up with the primary care. -Patient's weight was measured and body mass index [ 23 ] within the normal limits and counseling was done. and patient instructed to follow-up with the primary care physician. -Patient was not identified as an unhealthy alcohol user Time with Patient: Less than 30
== END | disposition home or self-care (01) ==
LOC: PNWHC3 08:37
PROVIDERS: ATTEND Specialist
DX: M51.16 Intervertebral disc disorders with radiculopathy, lumbar region (principal); M47.26 Other spondylosis with radiculopathy, lumbar region
CPT/HCPCS: 99211

== ENCOUNTER 2020-05-18 12:05 | Day surgery (SDC) | payer OTHER ==
[2020-05-13 15:52] VITALS: BMI 23.5
[~2020-05-18 12:05] MED LIST changes: -LIDOCAINE 1% (10MG/ML) FOR IV START INTRADERMA PRN
[2020-05-18 12:41] VITALS: TEMP 98
[2020-05-18] MEDS ORDERED: LACTATED RINGERS 1,000 ML IV ONE (12:41)
[2020-05-18] MEDS ORDERED: LIDOCAINE 1% (10MG/ML) FOR IV START INTRADERMA ONE (12:49)
[2020-05-18] MEDS ORDERED: MIDAZOLAM 2 MG/2 ML VIAL ONE (13:26)
[2020-05-18] MEDS ORDERED: methylPREDNISolone ACETATE 40 MG/ML 1 ML VIAL ONE (13:26)
[2020-05-18] MEDS ORDERED: fentaNYL (PF) 50 MCG/ML 2 ML AMP ONE (13:26)
[2020-05-18] MEDS ORDERED: ROPIVACAINE 5MG/ML 20ML VIAL ONE (13:26)
--- NOTE | 2020-05-18 13:43 | P.PCN ---
Date of Procedure: 05/18/20 Procedure(s) Performed: PREOPERATIVE DIAGNOSIS : 1- Lumbar spondylosis with Facet Arthropathy without myelopathy . 2- Lumber degenerative disc disease POSTOPERATIVE DIAGNOSIS: 1- Lumbar spondylosis with Facet Arthropathy without myelopathy . 2- Lumber degenerative disc disease PROCEDURE: Diagnostic bilateral L3 , L4 , and L5 medial branch block under fluoroscopy guidance(fluoroscopy images available in the radiology Department ) ( To target the facet joint between L4-5 , and L5-S1 ) ANESTHESIA:, moderate sedation with intravenous Versed 2 mg and Fentanyl 50 mcg. EBL: Minimal COMPLICATION: None PROCEDURE INDICATION: Chronic low back pain secondary to Facet arthropathy unresponsive to conservative treatment. PROCEDURE DESCRIPTION: the patient was seen and identified in the preop holding area , risks and benefits and possible complications of the procedure and alternative were discussed with the patient, and the patient agreed to proceed with the procedure and signed the consent and vital signs monitored during the procedure and fluoroscopy was used to maximize the benefit and accuracy of the needle placement, and sedation was given to decrease patient anxiety, patient was taken to the procedure room and placed in prone position vital signs monitored in the back prepped with chlorhexidine X3 then under strict sterile technique using a right oblique fluoroscopy ,the junction of the transverse process and the superior articulating process of the right L3 , L4 , and L5 vertebra which corresponding to the fluoroscopy image of the eye of the Lopez dog on the block side for the medial branches and subsequently , after local infiltration of skin and subcu tissuies with Ropivacaine 0.5 % , one mL at each level ,then 22-gauge Quincke-type needles , 3 needle was used , each one of them placed at the junction of the base of the transverse process and the superior articular process at the appropriate level, and the needle was advanced until the periosteum contacted, needle placement confirmed with AP oblique and lateral view and after appropriate needle placement confirmed, and after negative aspiration for heme and CSF and there was no paresthesia 1-1/2 mL of Ropivacaine 0.5% mixed with 20 mg Depo-Medrol , then half mL injected at each level after negative aspiration the needle subsequently removed and the same procedure repeated for the left side at left side at L3 , L4 and L5 levels. At the end of the procedure and the needles removed and a bandage applied after the skin was cleaned the cleaning solution patient taken to recovery room in stable condition and monitors in the recovery room for 20-30 minutes and discharged home in stable condition after discharge criteria met and patient will follow up with the pain clinic in 2-4 weeks
[2020-05-18 13:50] VITALS: RESP 16
--- NOTE | 2020-05-18 13:59 | FL ---
Fluoroscopy HISTORY: Pain 12 seconds fluoroscopy time supplied to the referring clinician. 4 intraoperative C-arm images docum ent the procedure. See dictated report from anesthesia.
[2020-05-18 14:02] VITALS: BP 120/78; PULSE 70
[2020-05-18] MEDS ORDERED: IV FLUID CONTINUATION 1,000 ML IV ONE (14:04)
== END 2020-05-18 14:17 | disposition home or self-care (01) ==
LOC: ORPAIN 12:05
PROVIDERS: ATTEND Specialist
DX: G89.29 Other chronic pain (principal); M47.816 Spondylosis without myelopathy or radiculopathy, lumbar region; M51.36 Other intervertebral disc degeneration, lumbar region
CPT/HCPCS: 64493; 64494; J2250; J1030; J3010; J2795

== ENCOUNTER 2020-08-13 12:08 | Day surgery (SDC) | payer OTHER ==
[2020-08-11 15:46] VITALS: BMI 24.9
[2020-08-13 12:59] VITALS: TEMP 98
[2020-08-13] MEDS ORDERED: LACTATED RINGERS 1,000 ML IV ONE (13:00)
[2020-08-13] MEDS ORDERED: IOPAMIDOL M200 10 ML VIAL ONE (13:31)
[2020-08-13] MEDS ORDERED: fentaNYL (PF) 50 MCG/ML 2 ML AMP ONE (13:31)
[2020-08-13] MEDS ORDERED: ROPIVACAINE 5MG/ML 20ML VIAL ONE (13:31)
[2020-08-13] MEDS ORDERED: TRIAMCINOLONE ACETONIDE 40 MG/ML 1 ML VIAL ONE (13:31)
[2020-08-13] MEDS ORDERED: MIDAZOLAM 2 MG/2 ML VIAL ONE (13:31)
--- NOTE | 2020-08-13 13:52 | P.PCN ---
Date of Procedure: 08/13/20 Description of Procedure: PREOPERATIVE DIAGNOSIS : 1- Lumbar spondylosis with Facet Arthropathy without myelopathy . 2- Lumber degenerative disc disease POSTOPERATIVE DIAGNOSIS: 1- Lumbar spondylosis with Facet Arthropathy without myelopathy . 2- Lumber degenerative disc disease PROCEDURE: Diagnostic bilateral L3 , L4 , and L5 medial branch block under fluoroscopy guidance(fluoroscopy images available in the radiology Department ) ( To target the facet joint between L4-5 , and L5-S1 ) #2 ANESTHESIA:, moderate sedation with intravenous anesthesia via anesthesia etam EBL: Minimal COMPLICATION: None PROCEDURE INDICATION: Chronic low back pain secondary to Facet arthropathy unresponsive to conservative treatment. PROCEDURE DESCRIPTION: the patient was seen and identified in the preop holding area , risks and benefits and possible complications of the procedure and alternative were discussed with the patient, and the patient agreed to proceed with the procedure and signed the consent and vital signs monitored during the procedure and fluoroscopy was used to maximize the benefit and accuracy of the needle placement, and sedation was given to decrease patient anxiety, patient was taken to the procedure room and placed in prone position vital signs monitored in the back prepped with chlorhexidine X3 then under strict sterile technique using a right oblique fluoroscopy ,the junction of the transverse process and the superior articulating process of the right L3 , L4 , and L5 vertebra which corresponding to the fluoroscopy image of the eye of the Lopez dog on the block side for the medial branches and subsequently , after local infiltration of skin and subcu tissuies with Ropivacaine 0.5 % , one mL at each level ,then 25-gauge Quincke-type needles , 3 needle was used , each one of them placed at the junction of the base of the transverse process and the superior articular process at the appropriate level, and the needle was advanced until the periosteum contacted, needle placement confirmed with AP oblique and lateral view and after appropriate needle placement confirmed, and after negative aspiration for heme and CSF and there was no paresthesia 1-1/2 mL of Ropivacaine 0.5% mixed with 40 mg Depo-Medrol , then 1 mL injected at each level after negative aspiration the needle subsequently removed and the same procedure repeated for the left side at left side at L3 , L4 and L5 levels. At the end of the procedure and the needles removed and a bandage applied after the skin was cleaned the cleaning solution patient taken to recovery room in stable condition and monitors in the recovery room for 20-30 minutes and discharged home in stable condition after discharge criteria met and patient will follow up with the pain clinic in 2-4 weeks
[2020-08-13] MEDS ORDERED: IV FLUID CONTINUATION 1,000 ML IV ONE (13:55)
[2020-08-13 14:01] VITALS: RESP 18
[2020-08-13 14:11] VITALS: BP 127/78; PULSE 78
--- NOTE | 2020-08-13 14:17 | FL ---
EXAMINATION TYPE: FL guided pain mgmt statistic DATE OF EXAM: 08/13/2020 HISTORY: Pain 6 SEC FL TIME USED LUMBAR FACETS
== END 2020-08-13 14:25 | disposition home or self-care (01) ==
LOC: ORPAIN 12:08
PROVIDERS: ATTEND Anesthesiology
DX: G89.29 Other chronic pain (principal); M47.816 Spondylosis without myelopathy or radiculopathy, lumbar region; I48.91 Unspecified atrial fibrillation; J45.909 Unspecified asthma, uncomplicated; F31.9 Bipolar disorder, unspecified; K21.9 Gastro-esophageal reflux disease without esophagitis; Z79.891 Long term (current) use of opiate analgesic; Z79.899 Other long term (current) drug therapy; Z88.5 Allergy status to narcotic agent; Z88.2 Allergy status to sulfonamides; Z88.6 Allergy status to analgesic agent; Z88.1 Allergy status to other antibiotic agents
CPT/HCPCS: 64493; 64494; J2250; J3301; J3010; Q9966; J2795

== ENCOUNTER → 2020-09-08 | Outpatient (CLI) | payer OTHER ==
--- NOTE | 2020-09-08 08:44 | P.PN ---
Subjective Progress Note Date: 09/08/20 This is a 45-year-old gentleman with history of chronic lower back pain with radiation to the right leg down to the right. However his back pain is more intense than his leg pain. The patient had 2 diagnostic lumbar medial branch blocks before and he had more than 80% of pain relief in the immediate period after the procedure however he did feel some tingling in the right leg after the last procedure which went away within a few hours. The patient has chronic pain in the right foot due to previous surgeries. Patient denies new-onset weakness, bowel/bladder incontinence, or any other signs or symptoms of cauda equina syndrome. There are no signs of acute intoxica tion, and no indications of medication diversion or overuse. In addition to above, 13-point review of systems is also negative for chest pain, shortness of breath, changes in vision, changes in hearing, new onset weakness, abdominal pain, diarrhea, extreme fatigue, malaise, fever, skin changes, homicidal or suicidal ideation, or bowel or bladder incontinence. Vital Signs: Reviewed in EMR Gen: AAOx3, NAD HEENT: PERRLA,hearing grossly normal Pulm: resp unlabored Neck: supple, trachea midline Neuro exam of the lower extremities: Decreased right knee flexion strength to 4 out of 5 and right forward flexion to 4 out of 5 Tenderness in the paravertebral musculature: Positive tenderness in the lumbar paravertebral musculature bilaterally Neuro: CN II-XII grossly intact, Imaging: Reviewed in EMR/chart Assessment: Lumbar spondylosis without myelopathy Right lumbar radiculopathy Right foot status post surgery Plan: 1. Explanation: Opioid and psychological risk scores were reviewed. Diagnoses, prognoses, and multiple treatment options including but not limited to physical therapy, interventional therapies, adjuvant medical therapies, narcotic medication therapies, and surgery were discussed with the patient and all questions were answered to the patient's satisfaction. 2. Opioid agreement: Signed with the patient and the patient is warned not to use opioids while driving or before driving and not to combine opioids with benzodiazepines or alcohol. 3. Counseling: The patient was counseled extensively on SMOKING CESSATION, BODY MASS INDEX, EXERCISE. Specifically, the patient was instructed regarding the importance of smoking cessation, obesity, and exercise in the context of both chronic pain and overall health. 4. Procedures: Scheduled for lumbar medial branch RFA bilaterally for the L4 5 and L5-S1 levels 5. Consultations: None 6. Investigations: None 7. Medications: None prescribed by our clinic 8. Disposition: Return to the above-mentioned procedure as soon as possible 9. Maps were reviewed and were appropriate. Objective - Vital Signs Vital signs: Vital Signs Temp 98.0 F 09/08/20 08:35 Pulse 67 09/08/20 08:35 Resp 18 09/08/20 08:35 BP 127/80 09/08/20 08:35 Pulse Ox 96 09/08/20 08:35 Intake & Output 09/07/20 09/08/20 09/08/20 18:59 06:59 18:59 Weight 84.368 kg
== END ==
CPT/HCPCS: 99211

== ENCOUNTER 2020-09-28 06:18 | Day surgery (SDC) | payer OTHER ==
[2020-09-27 10:08] VITALS: BMI 25.4
[2020-09-28] MEDS ORDERED: LACTATED RINGERS 1,000 ML IV ONE (06:59)
[2020-09-28 07:03] VITALS: PULSE 60; TEMP 97.8
[2020-09-28] MEDS ORDERED: MIDAZOLAM 2 MG/2 ML VIAL ONE (07:29)
[2020-09-28] MEDS ORDERED: ROPIVACAINE 5MG/ML 20ML VIAL ONE (07:29)
[2020-09-28] MEDS ORDERED: methylPREDNISolone ACETATE 40 MG/ML 1 ML VIAL ONE (07:29)
[2020-09-28] MEDS ORDERED: fentaNYL (PF) 50 MCG/ML 2 ML AMP ONE (07:29)
[2020-09-28] MEDS ORDERED: IV FLUID CONTINUATION 1,000 ML IV ONE (08:07)
[2020-09-28 08:10] VITALS: RESP 16
[2020-09-28 08:19] VITALS: BP 119/74
--- NOTE | 2020-09-28 08:32 | P.PCN ---
Date of Procedure: 09/28/20 Procedure(s) Performed: PREOPERATIVE DIAGNOSIS: 1-Lumbar Spondylosis with Facet Arthropathy without myelopathy. 2- Lumber degenerative disc disease POSTOPERATIVE DIAGNOSIS: 1- Lumbar Spondylosis with Facet Arthropathy without myelopathy. 2- Lumber degenerative disc disease PROCEDURES : Bilateral Radiofrequency thermocoagulation, L3 , L4 , and L5 medial branch, with fluoroscopic guidance (fluoroscopy images available in the radiology department) ( to denervate the facet joint at L4-5 ,and L5-S1 levels ). ANESTHESIA: Moderate sedation with intravenous versed 2 mg and fentaneyl 100 mcg, and local infiltration with Ropivacaine 0.5 % . EBL: Minimal PROCEDURE INDICATION: The patient with low back pain secondary to lumbar facet arthropathy who had more than 50% relief of her pain with previous diagnostic lumbar medial branch block with bupivacaine. PROCEDURE DESCRIPTION / TECHNIQUE: The patient was seen and identified in the preoperative area. Risks, benefits, complications, including but not limited to risk of infection ,bleeding , allergic reactions to the medications and no complete pain releife , and alternatives were discussed with the patient, the patient agreed to proceed with the procedure and signed the consent. IV was started. Vital signs remained stable throughout the procedure. Patient was taken to the OR and time out was completed. The patient was placed in the prone position on the procedure table. The lumber area was prepped and draped in the usual sterile fashion. . Vital signs were closely monitored during the procedure .IV sedation was used during the procedure to decrease patients anxiety. Using AP and then oblique fluoroscopy, the ``eye of the Lopez dog corresponding to the connection between the superior and transverse articular processes of right L3, L4, and L5 were identified, marked, and localized with 1% lidocaine. Subsequently, a 18 [id number] radiofrequency cannula with a 10- mm active tip was advanced guided by fluoroscopy to each of the``eyes of the Lopez dog at right L3, L4, and L5. Each site then underwent sensory testing at 50 Hz and 0 to 1 volt and motor testing at 2.5 Hz and 0 to 3 volt with local stimulation, but no radicular symptoms down the legs. Thereafter each sites underwent radiofrequency thermocoagulation at 80 degrees celsius for 90 seconds after injecting 0.5 ml of PF Ropivacaine 1ml, then after the thermocoagulation done , 1 ml of the block solution containing Depo-Medrol 20 mg and 3 ml of Ropivacaine 0.5% was injected at the right L3 , L4 , and L5 , levels after negative aspiration of CSF and blood and with no paresthesias. Cannulas were retracted while injecting lidocaine 1% until the needle is out. The same procedure was repeated at the level of Left L3, L4, and L5 levels. At the end of the procedure, the skin was cleansed and bandages were applied. COMPLICATIONS: No acute complications. DISPOSITION / PLANS: The patient was placed in a supine position and transferred to the recovery area in a stable condition for observation and was discharged from the recovery room after meeting discharge criteria. Home discharge instructions given to the patient by the staff. The patient was reexamined prior to discharge. The patient will schedule a follow up in the clinic in 2-4 weeks.
--- NOTE | 2020-09-28 10:00 | FL ---
EXAMINATION TYPE: FL guided pain mgmt statistic DATE OF EXAM: 09/28/2020 FLUOROSCOPY Fluoroscopy time of 23 seconds was used during lumbar spine pain intervention procedure, radiofrequen cy ablation. 6 image/s document/s the procedure.
== END 2020-09-28 08:38 | disposition home or self-care (01) ==
LOC: ORPAIN 06:18
PROVIDERS: ATTEND Specialist
DX: M47.816 Spondylosis without myelopathy or radiculopathy, lumbar region (principal); M51.36 Other intervertebral disc degeneration, lumbar region; Z88.1 Allergy status to other antibiotic agents; Z88.2 Allergy status to sulfonamides
CPT/HCPCS: 64635; 64636; J2250; J1030; J3010; J2795; 99152; 99153

== ENCOUNTER → 2020-10-25 | Outpatient (CLI) | payer OTHER ==
[2020-10-25 10:39] VITALS: BP 125/71; PULSE 63; RESP 18; TEMP 97.8
--- NOTE | 2020-10-25 10:43 | P.PN ---
Subjective Progress Note Date: 10/25/20 This is a follow-up visit for this 45 years old male with a chronic history of severe low back pain with radiation to the lower extremity, his diagnosed with lumbar degenerative disc disease and lumbar spondylosis with lumbar facet arthropathy, lumbar radiculopathy, previously we have done lumbar epidural steroid injections 2, and reported that he had minimal benefit after the injection, and recently we did RFA medial branch lumbar area,he reported, that he had minimal benefit from it, he continued to have severe low back pain with radiation to the lower extremity bilaterally more prominent on the left side, he denies any fever or night sweats he denies any change in the bowel movements or urination - Exam -Constitutiona : Cooperative , not in acute distress . -HEENT : nech : supple , no Lymphadenopathy , normal thyroid size . : eyes : no ptosis , no icterus, no photophobia . - neurologic : Cranial nerve II to XII intact , no focal neurological deffecit . -psychatric : alert , oriented X 3 , appropriate affect , intact judgment and insight . -Lymphatic : no Lymphadenopathy . - musculoskeltal : Lumber spine moter stegnth lower extremities ,thigh and legs 5/5 Right side , 4/5 Left side deep tendon reflexes : normal Knee Jerk , normal ankle Jerk lumber facet Loading Test =positive Right , positive Left Range of motion of the lumbar spine Flexion 30 degrees, extension 10 degrees strait leg raising test = positive at 30 degree on the left side and is negative on the right side Fabere test= positive Right , and positive LT . mild tenderness over the Sacroiliac joint on the Right , and Left sides Computed tomography scan of the lumbar spine= lumbar spondylolisthesis, lumbar degenerative disc disease, lumbar spondylosis with lumbar facet arthropathy Assessment and plan=1-lumbar radiculopathy. 2-lumbar degenerative disc disease. 3-lumbar spondylosis with lumbar facet arthropathy. Patient had no benefit from lumbar epidural steroid injection. Patient had minimal benefit from RFA medial branch block lumbar area , patient will follow up with Dr. Horowitz or evaluation for surgery - PQRS measures = - Patient's medications are documented in the chart. -Tobacco use is negative and counseling.Given. -Patient's has not received pneumococcal vaccine. -Advanced care planning discussed, patient not eligible. -Opiate contract not signed. -Pain positive and follow-up visit/procedure is scheduled. -Patient's blood pressure measured [ 125/71 ] , and documented in the record ,and patient will follow up with the primary care. -Patient's weight was measured and body mass index [ 24.4 ] within the normal limits and counseling was done. and patient instructed to follow-up with the primary care physician. -Patient was not identified as an unhealthy alcohol user Objective - Vital Signs Vital signs: Vital Signs Temp 97.8 F 10/25/20 10:34 Pulse 63 10/25/20 10:34 Resp 18 10/25/20 10:34 BP 125/71 10/25/20 10:34 Pulse Ox 96 10/25/20 10:34
== END ==
LOC: PNWHC3 10:20
PROVIDERS: ATTEND Specialist
DX: M47.26 Other spondylosis with radiculopathy, lumbar region (principal); M51.36 Other intervertebral disc degeneration, lumbar region; Z98.890 Other specified postprocedural states; Z88.2 Allergy status to sulfonamides; Z88.1 Allergy status to other antibiotic agents; Z88.5 Allergy status to narcotic agent; Z88.6 Allergy status to analgesic agent; Z87.891 Personal history of nicotine dependence; Z88.8 Allergy status to other drugs, medicaments and biological substances
CPT/HCPCS: 99211

== ENCOUNTER → 2022-09-06 | Outpatient (CLI) | payer OTHER ==
--- NOTE | 2022-09-06 08:37 | CT ---
EXAMINATION TYPE: CT humerus RT w con CT DLP: 941.90 mGycm, Automated exposure control for dose reduction was used. DATE OF EXAM: 09/06/2022 8:29 AM COMPARISON: None CLINICAL INDICATION:Male, 47 years old with history of D16.11; PHH, right humerus pain TECHNIQUE: Axial images were obtained of the right humerus after the uneventful administration of 100 cc of [id number] intravenously. Additional coronal and sagittal reformatted images and soft tissue and bone window were obtained for review. 3-D reconstruction was created on a separate workstation. FINDINGS: There is no evidence of fracture, subluxation, or dislocation. No evidence of osseous erosi on. No sclerotic or lytic lesion identified. No periosteal reaction. No significant soft tissue swell ing or joint effusion is identified. No focal muscular atrophy or edema is identified. No organized f luid collection. No abnormal enhancement. No radiopaque foreign body identified. The visualized portion of the right chest and abdomen are unremarkable. Visualized vasculature is unr emarkable. IMPRESSION: 1. No acute fracture or dislocation. 2. No osseous lesion or abnormal enhancement demonstrated.
== END | disposition home or self-care (01) ==
LOC: RADCTMAIN 07:50
PROVIDERS: ATTEND Orthopaedic Surgery
DX: D16.11 Benign neoplasm of short bones of right upper limb (principal)
CPT/HCPCS: 73201; Q9967

== ENCOUNTER 2022-10-31 09:39 | Emergency (ER) | payer OTHER ==
[2022-10-31] MEDS ORDERED: MORPHINE SULFATE 4 MG/ML SYRINGE IVP STA (11:14)
--- NOTE | 2022-10-31 11:30 | ED ---
General Adult HPI - General Chief complaint: Recheck/Abnormal Lab/Rx Stated complaint: post op-chest pains Time Seen by Provider: 10/31/22 10:09 Source: patient Mode of arrival: wheelchair Limitations: no limitations - History of Present Illness Initial comments: Dictation was produced using [employer] dictation software. please excuse any grammatical, word or spelling errors. Chief Complaint: 47-year-old male presents with chest pain History of Present Illness: Patient's 47-year-old male presents emergency department with chest pain. Patient had foot and ankle surgery performed by Dr. Arita yesterday at [facility]. Patient states that he thinks that he is having chest pain because his foot hurts. States that it's an ache to his left anterior chest goes to his left shoulder. Does have cardiac history. Denies any history of coronary artery disease however he does have a history of A. fib and septal defect repair. No associated diaphoresis or nausea. Denies any calf tenderness or Swelling. The ROS documented in this emergency department record has been reviewed and confirmed by me. Those systems with pertinent positive or negative responses have been documented in the HPI. All other systems are other negative and/or noncontributory. - Related Data Home Medications Medication Instructions Recorded Confirmed Flecainide Acetate 50 mg PO BID 06/13/16 10/31/22 Famotidine [Pepcid] 20 mg PO BID 12/05/17 10/31/22 Metoprolol Tartrate [Lopressor] 25 mg PO BID 12/05/17 10/31/22 Albuterol Inhaler [Ventolin Hfa 2 puff INHALATION RT-QID PRN 01/17/20 10/31/22 Inhaler] Divalproex Sodium [Depakote] 1,000 mg PO HS 01/17/20 10/31/22 Divalproex Sodium [Depakote] 500 mg PO QAM 01/17/20 10/31/22 risperiDONE [RisperDAL] 0.5 mg PO DAILY 01/17/20 10/31/22 Baclofen [Lioresal] 20 mg PO TID PRN 10/31/22 10/31/22 Cefdinir 300 mg PO Q12HR 10/31/22 10/31/22 Clobetasol Propionate [Temovate 1 applic TOPICAL BID 10/31/22 10/31/22 0.05% Cream] Dicyclomine [Bentyl] 10 mg PO DAILY 10/31/22 10/31/22 HYDROcodone/APAP 5-325MG [[place] 1 tab PO Q6HR 10/31/22 10/31/22 5-325] busPIRone HCl [Buspar] 10 mg PO TID PRN 10/31/22 10/31/22 risperiDONE [RisperDAL] 1.5 mg PO HS 10/31/22 10/31/22 Allergies Allergy/AdvReac Type Severity Reaction Status Date / Time sulfamethoxazole Allergy Unknown Rash/Hives/ Verified 10/31/22 12:58 [From Bactrim] Itching trimethoprim [From Bactrim] Allergy Unknown Rash/Hives/ Verified 10/31/22 12:58 Itching daptomycin Allergy Rash/Hives/ Verified 10/31/22 12:58 Itching hydromorphone HCl Allergy Rash/Hives/ Verified 10/31/22 12:58 [From Dilaudid] Itching lorazepam [From Ativan] Allergy Unknown Verified 10/31/22 12:58 vancomycin Allergy Rash/Hives/ Verified 10/31/22 12:58 Itching ibuprofen [From Motrin] AdvReac Nausea & Verified 10/31/22 12:58 Vomiting Review of Systems ROS Statement: Those systems with pertinent positive or pertinent negative responses have been documented in the HPI. ROS Other: All systems not noted in ROS Statement are negative. Past Medical History Past Medical History: Atrial Fibrillation, COPD, GERD/Reflux, Musculoskeletal Disorder, Skin Disorder Additional Past Medical History / Comment(s): PACEMAKER @ AGE 24, ACNE, LOW IRON & ANEMIA, IBS. LOWER BACK PAIN RADIATING TO LEFT LEG AND FOOT. History of Any Multi-Drug Resistant Organisms: MRSA Date of last positivie culture/infection: 05/25/15 MDRO Source:: Left Wrist Past Surgical History: Cardiac Ablation, Heart Catheterization, Orthopedic Surgery, Pacemaker Additional Past Surgical History / Comment(s): ASD REPAIR TO REPAIR HOLE BETWEEN 2 UPPER CHAMBERS AT AGE 5., PACEMAKER INSERTED SINCE AGE 24 AND REPLACED X1. , CARDIAC ABLATION X2., PAIN CLINIC PROCEDURES,Neck surgery - Fall 2017 (Dr. Horowitz), surgery to rt great toe X 2 Past Anesthesia/Blood Transfusion Reactions: No Reported Reaction Additional Past Anesthesia/Blood Transfusion Reaction / Comment(s): problem with having face covered-panic attacks Type of Cardiac Device: Permanent Pacemaker Device Placement Date:: 2010 BIOTRONIC Past Psychological History: Anxiety, Bipolar, Depression, Panic Disorder Smoking Status: Former smoker Past Alcohol Use History: None Reported Past Drug Use History: None Reported - Past Family History Mother Family Medical History: No Reported History Additional Family Medical History / Comment(s): . General Exam - General Exam Comments Initial Comments: PHYSICAL EXAM: General Impression: Alert and oriented x3, not in acute distress HEENT: Normocephalic atraumatic, extra-ocular movements intact, pupils equal and reactive to light bilaterally, mucous membranes moist. Cardiovascular: Heart regular rate and rhythm Chest: Able to complete full sentences, no retractions, no tachypnea Abdomen: abdomen soft, non-tender, non-distended, no organomegaly Musculoskeletal: Pulses present and equal in all extremities, no peripheral edema Lower extremity dressing clean dry and intact Motor: no focal deficits noted Neurological: CN II-XII grossly intact, no focal motor or sensory deficits noted Skin: Intact with no visualized rashes Psych: Normal affect and mood Limitations: no limitations Course Vital Signs 10/31/22 10/31/22 10/31/22 09:51 10:30 11:10 Temperature 98.6 F Pulse Rate 74 73 67 Respiratory 20 12 26 H Rate Blood Pressure 152/79 134/95 141/89 O2 Sat by Pulse 96 97 97 Oximetry 10/31/22 12:10 Temperature Pulse Rate 61 Respiratory 18 Rate Blood Pressure 135/81 O2 Sat by Pulse 97 Oximetry EKG Findings - EKG Comments: EKG Findings:: My EKG interpretation: Ventricular rate 67, sinus rhythm,. 179, QRS 106, QTC 412. No CO prolongation, no QTC prolongation, no ST or T-wave changes noted. Overall, this EKG is unremarkable Medical Decision Making - Medical Decision Making Was pt. sent in by a medical professional or institution (, PA, CAR SALES CONSULTANT, urgent care, hospital, or residential...) When possible be specific @ -No Did you speak to anyone other than the patient for history (EMS, parent, family, police, friend...)? What history was obtained from this source @ -No Did you review nursing and triage notes (agree or disagree)? Why? @ -I reviewed and agree with nursing and triage notes Were old charts reviewed (outside hosp., previous admission, EMS record, old EKG, old radiological studies, urgent care reports/EKG's, residential records)? Report findings @ -No old charts were reviewed Differential Diagnosis (chest pain, altered mental status, abdominal pain women, abdominal pain men, vaginal bleeding, musculoskeletal, weakness, fever, dyspnea, syncope, headache, dizziness, GI bleed, back pain, seizure, CVA, palpatations, mental health)? @ -Differential Chest Pain: Stable Angina, Unstable Angina, STEMI, NSTEMI Aortic Dissection, Pneumothorax, Musculoskeletal, Esophageal Spasm GERD, Cholecystitis, Pancreatitis, Zoster, this is not meant to be an all-inclusive list. EKG interpreted by me (3pts min.). @ -See above X-rays interpreted by me (1pt min.). @ -Foot x-ray shows postoperative changes CT interpreted by me (1pt min.). @ -None done U/S interpreted by me (1pt. min.). @ -None done What testing was considered but not performed or refused? (CT, X-rays, U/S, l abs)? Why? @ -None What meds were considered but not given or refused? Why? @ -None Did you discuss the management of the patient with other professionals (professionals i.e. , PA, CAR SALES CONSULTANT, lab, RT, psych nurse, nursing home social worker, director utilization management, teacher, resident medical officer, case finisher)? Give summary @ -Case discussed with loader demolder, Dr. Arita who provides more history states that he called regarding patient's foot pain. She states that he was sent to the ER due to his history of cardiac disease. Was smoking cessation discussed for >3mins.? @ -No Was critical care preformed (if so, how long)? @ -No Were there social determinants of health that impacted care today? How? (Homelessness, low income, unemployed, alcoholism, drug addiction, transportation, low edu. Level, literacy, decrease access to med. care, fci, r ehab)? @ -No Was there de-escalation of care discussed even if they declined (Discuss DNR or withdrawal of care, Hospice)? DNR status @ -No What co-morbidities impacted this encounter? (DM, HTN, Smoking, COPD, CAD, Cancer, CVA, ARF, Chemo, Hep., AIDS, mental health diagnosis, sleep apnea, morbid obesity)? @ -None Was patient admitted / discharged? Hospital course, mention meds given and route, prescriptions, significant lab abnormalities, going to OR and other pertinent info. @ -47-year-old male presents emergency department for surgical site pain. He is postop day 1 for foot surgery. States that the foot pain is making his chest hurt. Patient has any shortness of breath. Pain is not reproducible with inspiration. No calf pain. Unlikely to be pulmonary embolism. Patient not tachycardic and hypoxic. Laboratory evaluation obtained IV within acceptable limits. Troponin is negative. Chest x-ray is nonacute. Disposition options were discussed and recommended that he be admitted to observation for serial troponins however he refused further be discharged. Patient given analgesics with improvement of his for several pain. Strongly advised follow-up with surgeon. Undiagnosed new problem with uncertain prognosis? @ -No Drug Therapy requiring intensive monitoring for toxicity (Heparin, Nitro, Insulin, Cardizem)? @ -No Were any procedures done? @ -No Diagnosis/symptom? Acute, or Chronic, or Acute on Chronic? Uncomplicated (without systemic symptoms) or Complicated (systemic symptoms)? @ -1. Postoperative foot pain Side effects of treatment? @ -No Exacerbation, Progression, or Severe Exacerbation? @ -No Poses a threat to life or bodily function? How? (Chest pain, [place], [place], pneumonia, PE, COPD, DKA, ARF, appy, cholecystitis, CVA, Diverticulitis, Homicidal, Suicidal, threat to staff... and all critical care pts) @ -No - Lab Data Result diagrams: 10/31/22 11:20 10/31/22 11:20 Lab Results 10/31/22 10/31/22 10/31/22 Range/Units 11:20 11:20 11:20 WBC 7.3 (3.8-10.6) k/uL RBC 4.73 (4.30-5.90) m/uL Hgb 14.1 (13.0-17.5) gm/dL Hct 41.6 (39.0-53.0) % MCV 88.0 (80.0-100.0) fL MCH 29.9 (25.0-35.0) pg MCHC 34.0 (31.0-37.0) g/dL RDW 12.7 (11.5-15.5) % Plt Count 229 (150-450) k/uL MPV 8.3 Neutrophils % 76 % Lymphocytes % 14 % Monocytes % 7 % Eosinophils % 2 % Basophils % 0 % Neutrophils # 5.5 (1.3-7.7) k/uL Lymphocytes # 1.0 (1.0-4.8) k/uL Monocytes # 0.5 (0-1.0) k/uL Eosinophils # 0.1 (0-0.7) k/uL Basophils # 0.0 (0-0.2) k/uL PT 10.5 (9.0-12.0) sec INR 1.0 (<1.2) APTT 24.8 (22.0-30.0) sec Sodium 139 (137-145) mmol/L Potassium 4.5 (3.5-5.1) mmol/L Chloride 106 (98-107) mmol/L Carbon Dioxide 27 (22-30) mmol/L Anion Gap 6 mmol/L BUN 12 (9-20) mg/dL Creatinine 0.88 (0.66-1.25) mg/dL Est GFR (CKD-EPI)AfAm >90 (>60 ml/min/1.73 sqM) Est GFR (CKD-EPI)NonAf >90 (>60 ml/min/1.73 sqM) Glucose 102 H (74-99) mg/dL Calcium 9.5 (8.4-10.2) mg/dL Total Bilirubin 0.7 (0.2-1.3) mg/dL AST 25 (17-59) U/L ALT 24 (4-49) U/L Alkaline Phosphatase 61 (38-126) U/L Troponin I (0.000-0.034) ng/mL Total Protein 6.6 (6.3-8.2) g/dL Albumin 4.2 (3.5-5.0) g/dL 10/31/22 Range/Units 11:20 WBC (3.8-10.6) k/uL RBC (4.30-5.90) m/uL Hgb (13.0-17.5) gm/dL Hct (39.0-53.0) % MCV (80.0-100.0) fL MCH (25.0-35.0) pg MCHC (31.0-37.0) g/dL RDW (11.5-15.5) % Plt Count (150-450) k/uL MPV Neutrophils % % Lymphocytes % % Monocytes % % Eosinophils % % Basophils % % Neutrophils # (1.3-7.7) k/uL Lymphocytes # (1.0-4.8) k/uL Monocytes # (0-1.0) k/uL Eosinophils # (0-0.7) k/uL Basophils # (0-0.2) k/uL PT (9.0-12.0) sec INR (<1.2) APTT (22.0-30.0) sec Sodium (137-145) mmol/L Potassium (3.5-5.1) mmol/L Chloride (98-107) mmol/L Carbon Dioxide (22-30) mmol/L Anion Gap mmol/L BUN (9-20) mg/dL Creatinine (0.66-1.25) mg/dL Est GFR (CKD-EPI)AfAm (>60 ml/min/1.73 sqM) Est GFR (CKD-EPI)NonAf (>60 ml/min/1.73 sqM) Glucose (74-99) mg/dL Calcium (8.4-10.2) mg/dL Total Bilirubin (0.2-1.3) mg/dL AST (17-59) U/L ALT (4-49) U/L Alkaline Phosphatase (38-126) U/L Troponin I <0.012 (0.000-0.034) ng/mL Total Protein (6.3-8.2) g/dL Albumin (3.5-5.0) g/dL Disposition Clinical Impression: Pain at surgical site Disposition: HOME SELF-CARE Condition: Good Instructions (If sedation given, give patient instructions): Pain Management (ED) Additional Instructions: f/u with Dr. Arita Is patient prescribed a controlled substance at d/c from ED?: No Referrals: Manoj Samayoa MD [Primary Care Provider] - 1-2 days Time of Disposition: 13:23
[2022-10-31 11:37] LABS: Basophils % (A) 0 %; Eosinophils # (A) 0.1 k/uL (0-0.7); Eosinophils % (A) 2 %; HCT 41.6 % (39.0-53.0); HGB 14.1 gm/dL (13.0-17.5); Lymphocytes % (A) 14 %; MCH 29.9 pg (25.0-35.0); Mean Platelet Volume 8.3; Monocytes # (A) 0.5 k/uL (0-1.0); Monocytes % (A) 7 %; Neutrophils # (A) 5.5 k/uL (1.3-7.7); Neutrophils % (A) 76 %; Platelet Count 229 k/uL (150-450); RBC 4.73 m/uL (4.30-5.90); RDW 12.7 % (11.5-15.5); WBC 7.3 k/uL (3.8-10.6)
[2022-10-31 11:41] LABS: Partial Thromboplastin Time 24.8 sec (22.0-30.0); Prothrombin Time 10.5 sec (9.0-12.0)
--- NOTE | 2022-10-31 11:44 | XR ---
EXAMINATION TYPE: XR chest 2V DATE OF EXAM: 10/31/2022 11:31 AM COMPARISON: Chest radiographs from 12/05/2017 TECHNIQUE: XR chest 2V Frontal and lateral views of the chest. CLINICAL INDICATION:Male, 47 years old with history of chest pain; FINDINGS: Lungs/Pleura: There is no evidence of pleural effusion, focal consolidation, or pneumothorax. Pulmonary vascularity: Unremarkable. Heart/mediastinum: Cardiomediastinal silhouette is unremarkable. Two lead cardiac conduction device o verlying the left hemithorax with lead tips projecting over the right ventricle and right atrium. Musculoskeletal: No acute osseous pathology. There is fixation hardware in the lower cervical spine. IMPRESSION: No acute cardiopulmonary disease/process.
[2022-10-31 12:00] LABS: ALT 24 U/L (4-49); AST 25 U/L (17-59); African American GFR (CKD) >90 (>60 ml/min/1.73 sqM); Albumin 4.2 g/dL (3.5-5.0); Alkaline Phosphatase 61 U/L (38-126); Anion Gap 6 mmol/L; Blood Urea Nitrogen 12 mg/dL (9-20); Calcium 9.5 mg/dL (8.4-10.2); Carbon Dioxide 27 mmol/L (22-30); Chloride 106 mmol/L (98-107); Glucose 102 mg/dL (74-99); Non-African American GFR(CKD) >90 (>60 ml/min/1.73 sqM); Potassium 4.5 mmol/L (3.5-5.1); Sodium 139 mmol/L (137-145); Total Bilirubin 0.7 mg/dL (0.2-1.3); Total Protein 6.6 g/dL (6.3-8.2)
[2022-10-31 12:31] VITALS: RESP 18
[2022-10-31] MEDS ORDERED: HYDROmorphone 1 MG/ML 1 ML SYRINGE IVP STA (12:51)
--- NOTE | 2022-10-31 13:08 | XR ---
EXAMINATION TYPE: XR foot limited RT DATE OF EXAM: 10/31/2022 COMPARISON: NONE HISTORY: 47-year-old male foot pain, postop for one day. TECHNIQUE: 2 views FINDINGS: Patient is status post surgical fusion with screw fixation across the first MTP joint. Some associate d dorsal and medial soft tissue swelling. Type II accessory navicular. IMPRESSION: Surgical fusion with plate and screws across the first MTP joint. Residual soft tissue swelling dorsa lly and medially. Otherwise, no acute osseous abnormality seen.
[2022-10-31 14:17] VITALS: BP 148/78; PULSE 78; TEMP 98.2
== END 2022-10-31 14:00 | disposition home or self-care (01) ==
LOC: EC 09:39
DX: G89.28 Other chronic postprocedural pain (principal); M79.672 Pain in left foot; I48.91 Unspecified atrial fibrillation; J44.9 Chronic obstructive pulmonary disease, unspecified; K21.9 Gastro-esophageal reflux disease without esophagitis; F41.9 Anxiety disorder, unspecified; F31.9 Bipolar disorder, unspecified; Z87.891 Personal history of nicotine dependence; Z88.2 Allergy status to sulfonamides; Z88.1 Allergy status to other antibiotic agents; Z88.5 Allergy status to narcotic agent; Z88.6 Allergy status to analgesic agent; Z79.899 Other long term (current) drug therapy
CPT/HCPCS: 36415; 93005; 80053; 84484; 85025; 85610; 85730; 73620; 71046; 99285; 96374; 96375; J2270; J1170

== ENCOUNTER → 2023-06-13 | Outpatient (CLI) | payer OTHER ==
--- NOTE | 2023-06-13 08:48 | CT ---
EXAMINATION TYPE: CT lumbar spine wo con CT DLP: 536.10 mGycm, Automated exposure control for dose reduction was used. DATE OF EXAM: 06/13/2023 8:16 AM COMPARISON: 01/17/2020. CLINICAL INDICATION:Male, 48 years old with history of M54.16 RADICULOPATHY, LUMBAR REGION; PHH, Radi culopathy, lumbar region TECHNIQUE: Multiple axial images were obtained from the midportion of T11 through the sacroiliac orlin nts. Soft tissue and bone windows in coronal and sagittal planes were obtained and reviewed. Contrast used: mL of , (None, if empty). Oral contrast used: (None, if empty). FINDINGS: Alignment: There are 5 lumbar type vertebral bodies within grade 1 anterolisthesis of L4 and L5 with bilateral spondylolysis.. Bone: No evidence of fracture is identified. Multilevel degeneration changes with osteophyte formati on, disc space narrowing, facet joint arthropathy. Discs: T12-L1: No spinal canal or neural foraminal stenosis is identified. L1-L2: No spinal canal or neural foraminal stenosis is identified. L2-L3: No spinal canal or neural foraminal stenosis is identified. L3-L4: No spinal canal or neural foraminal stenosis is identified. L4-L5: Grade 1 anterolisthesis with bilateral spondylolysis results in disc uncovering with mild spin al canal stenosis and mild to moderate left and moderate to severe right neural foraminal stenosis. L5-S1: Facet joint arthropathy, osteophytes and disc bulging result in mild spinal canal stenosis and moderate to severe bilateral neural foraminal stenosis. Other: None IMPRESSION: 1. Grade 1 anterolisthesis of L4 and L5 with bilateral spondylolysis. This also results in moderate to severe right neural foraminal stenosis. 2. No evidence for acute spinal fracture. 3. Mild degeneration changes throughout the spine with moderate to severe bilateral L5-S1 neural for aminal stenosis.
== END | disposition home or self-care (01) ==
LOC: RADCTMAIN 07:58
PROVIDERS: ATTEND Family Medicine
DX: M54.16 Radiculopathy, lumbar region (principal); M43.16 Spondylolisthesis, lumbar region; M99.73 Connective tissue and disc stenosis of intervertebral foramina of lumbar region; M47.816 Spondylosis without myelopathy or radiculopathy, lumbar region
CPT/HCPCS: 72131

== ENCOUNTER 2023-09-14 08:20 | Day surgery (SDC) | payer OTHER ==
[2023-09-14] MEDS: diazePAM 5 MG TAB PO STA (09:14)
[2023-09-14 10:03] VITALS: RESP 16; TEMP 98
--- NOTE | 2023-09-14 12:43 | CT ---
EXAMINATION TYPE: CT lumbar spine w con CT DLP: 544.9 mGycm, Automated exposure control for dose reduction was used. DATE OF EXAM: 09/14/2023 11:25 AM COMPARISON: 06/13/2023. 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 Soft tissue and bone windows in coronal and sagittal planes were obtained and reviewed. 3-D ref ormats of the bones were created on a separate workstation and submitted for review. Contrast used:15 mL of Isovue 300 intrathecal contrast Oral contrast used: (None, if empty). FINDINGS: Alignment: There are 5 lumbar type vertebral bodies. Grade 1 anterolisthesis of L4 and L5. Bone: Multilevel degeneration changes throughout the spine with osteophyte formation and disc space narrowing. There is grade 1 anterolisthesis of L4 and L5 with bilateral spondylolysis. Discs: T12-L1: No spinal canal or neural foraminal stenosis is identified. L1-L2: No spinal canal or neural foraminal stenosis is identified. L2-L3: No spinal canal or neural foraminal stenosis is identified. L3-L4: No spinal canal or neural foraminal stenosis is identified. L4-L5: Grade 1 anterolisthesis with disc uncovering and moderate left and [id number] right ne ural foraminal stenosis. Spinal canal is patent. L5-S1: Facet joint arthropathy and disc bulging result with mild spinal canal stenosis and moderate t o severe bilateral neural foraminal stenosis. Other: None IMPRESSION: Overall findings are not significantly changed from prior exam 06/13/2023 1. No evidence for significant spinal canal stenosis. 2. Grade 1 anterolisthesis of L4 and L5 with bilateral spondylolysis and moderate severe right neura l foraminal stenosis. 3. Multilevel degeneration changes spine with moderate to severe bilateral L5-S1 neural foraminal st enosis.
[2023-09-14 14:57] VITALS: PULSE 67
[2023-09-14 15:54] VITALS: BP 126/73
--- NOTE | 2023-09-15 14:27 | FL ---
EXAMINATION TYPE: FL myelogram lumbosacral DATE OF EXAM: 09/14/2023 11:25 AM CLINICAL INDICATION:Male, 48 years old with history of M54.10 radiculopathy; COMPARISON: CT lumbar spine. ATTENDING: Benjamin Pierre D.O. FINDINGS: Informed consent was obtained including discussion of the risks and benefits. Timeout was taken per p rotocol. Real-time fluoroscopy was performed to localize the lumbar spine access site. The patient wa s prepped and draped. Under sterile technique with local anesthesia a 22-gauge spinal needle was intr oduced into the arachnoid space with return of clear CSF. A total of 10 cc of Isovue-300 M was inject ed with appropriate opacification of the thecal sac. Total fluoroscopy time was 1 minute 29 seconds seconds Total fluoroscopic images 0. Radiographs taken: 3 DAP: Not Reported by machine [email or web address] IMPRESSION: Successful lumbar puncture with injection for CT myelogram. CT pending.
== END 2023-09-14 14:37 | disposition home or self-care (01) ==
LOC: RADPROMAIN 08:20
PROVIDERS: ATTEND Orthopaedic Surgery
DX: M47.816 Spondylosis without myelopathy or radiculopathy, lumbar region (principal); M48.061 Spinal stenosis, lumbar region without neurogenic claudication; M43.16 Spondylolisthesis, lumbar region
CPT/HCPCS: 62304; 72132